=== PATIENT | male | born 1965 | race Caucasian/White ===

== ENCOUNTER 2016-07-12 21:04 | Inpatient (IN) | payer MEDICAID, OTHER ==
[~2016-07-12] VITALS: Ht 170.2 cm; Wt 70.9 kg
[2016-07-12 21:19] VITALS: BP 151/92; PULSE 93; RESP 19; TEMP 98.8; O2SAT 97
--- NOTE | 2016-07-12 22:26 | PD ---
HPI Chief Complaint: Psychiatric Symptoms Time Seen by Provider: 22:20 Travel History International Travel<30 days: No Contact w/Intl Traveler<30days: No Traveled to known affect area: No History of Present Illness HPI 51-year-old male that presents to the ED for evaluation of psych. Patient was Roger acted by police after apparently mother contacted the police because patient was being intoxicated and hallucinating. Patient does have a significant history of alcohol abuse and he tells me that his been drinking since age 9. Per patient he "left my mother dry". He states that his been drinking heavily the past couple days. Per patient she's been hearing voices and he feels like his has not right. Per patient he is not taking any medications for schizophrenia or anything as he doesn't like pills. He has no allergies to medication. He denies any other medical problems to me. No fevers chills or sweats. Patient is somewhat hard to assess secondary to his intoxication and mental status. He does appear to be interacting with some internal stimuli. He denies any suicidal or homicidal ideation to me. He is not aggressive. He does smell alcohol heavily. Again history is limited. Symptoms seem to be moderate at this time. PFSH Past Medical History Schizophrenia: Yes Social History Alcohol Use: Yes Tobacco Use: Yes Substance Use: No Allergies-Medications (Allergen,Severity, Reaction): Coded Allergies: No Known Allergies (Unverified , 07/13/16) Per Lavell at the [facility] - in [place], [place] on [address] [phone]. Reported Meds & Prescriptions Reported Meds & Active Scripts Active Reported Lactulose Liq (Lactulose) 10 Gm/15 Ml Soln 30 Ml PO TID Hydroxyzine Pamoate 50 Mg Cap 50 Mg PO QID PRN Vitamin B-1 (Thiamine HCl) 100 Mg Tab 100 Mg PO DAILY Multi Vitamin and Mineral (Multiple Vitamins W/ Minerals) 1 Tab Tab Seroquel (Quetiapine Fumarate) 300 Mg Tab 300 Mg PO HS Sertraline (Sertraline HCl) 50 Mg Tab 50 Mg PO DAILY Albuterol Neb (Albuterol Sulfate) 2.5 Mg/3 Ml Neb 2.5 Mg NEB Q4HR NEB PRN Review of Systems ROS Limitations: Intoxication General / Constitutional: No: Fever, Chills, Weight Gain, Weight Loss, Other Eyes: No: Diploplia, Blurred Vision, Photophobia, Drainage, Redness, Foreign Body Sensation, Pain, Tearing, Blind Spots, Visual changes, Blindness, Other HENT: No: Headaches, Vertigo, Lightheadedness, Sore Throat, Rhinitis, Rhinorrhea, Congestion, Nosebleed, Neck Stiffness, Neck Pain, Masses, Gingival Bleeding, Dental Difficulties, Ear Discharge, Earache, Other Cardiovascular: No: Chest Pain or Discomfort, Palpitations, Irregular Rhythm, Tachycardia, Diaphoresis, Syncope, Dyspnea on exertion, Varicosities, Edema, Cyanosis, Varicosities, Phlebitis, Claudication, Other Respiratory: No: Cough, Shortness of Breath, Wheezing, Sneezing, Orthopnea, Hemoptysis, Stridor, Night Sweats, Pleuritic Pain, Other Gastrointestinal: No: Nausea, Vomiting, Diarrhea, Abdominal Pain, Hematemesis, Hematochezia, Constipation, Changes in Bowel Habits, Indigestion, Dysphagia, Loss of Appetite, Other Genitourinary: No: Urgency, Frequency, Dysuria, Nocturia, Hematuria, Decreased Urinary Output, Oliguria, Hesitancy, Dribbling, Incontinence, Pelvic Pain, Flank Pain, Dyspareunia, Discharge, Dysmenorrhea, Menorrhagia, Metorrhagia, Vaginal Bleeding, Other Musculoskeletal: No: Myalgias, Arthralgias, Limited ROM, Weakness, Cramping, Edema, Pain, Atrophy, Other Skin: No Rash, No Itching, No Dryness, No Lumps, No Hives, No Change in Pigmentation, No Change in nails, No Alopecia, No Lesions, No Breast Lumps, No Breast Tenderness, No Breast Swelling, No Other Neurologic: No: Weakness, Dizziness, Syncope, Focal Abnormalities, Coordination Problem, Tremor, Ataxia, Headache, Change in Mentation, Slurred Speech, Paresthesia, Incontinence, Seizures, Sensory Disturbance, Other Psychiatric: Positive: Depression, Disorder of Thought, Mood Disorder, Substance Abuse, No: Anxiety, Suicidal Ideations, Homicidal Ideation, Other Endocrine: No: Heat Intolerance, Cold Intolerance, Polyuria, Polydipsia, Other Hematologic/Lymphatic: No: Easy Bruising, Lymph Node Enlargement, Other Physical Exam Exam Limitations: Intoxication Narrative GENERAL: SKIN: Warm and dry. HEAD: Atraumatic. Normocephalic. EYES: Pupils equal and round. No scleral icterus. No injection or drainage. ENT: No nasal bleeding or discharge. Mucous membranes pink and moist. Tongue is midline. No uvula deviation. NECK: Trachea midline. No JVD. CARDIOVASCULAR: Regular rate and rhythm. No murmurs, S3, S4. RESPIRATORY: No accessory muscle use. Clear to auscultation. Breath sounds equal bilaterally. GASTROINTESTINAL: Abdomen soft, non-tender, nondistended. Hepatic and splenic margins not palpable. MUSCULOSKELETAL: Extremities without clubbing, cyanosis, or edema. No obvious deformities. Full range of motion of the upper and lower extremities bilaterally. 2+ pulses bilaterally. NEUROLOGICAL: Awake and alert. No obvious cranial nerve deficits. Motor grossly within normal limits. Five out of 5 muscle strength in the arms and legs. Normal speech. PSYCHIATRIC: Intoxicated and somewhat psychotic mood and affect; insight and judgment questionable at this time Data Data Last Documented VS Vital Signs Date Time Temp Pulse Resp B/P Pulse Ox O2 Delivery O2 Flow Rate FiO2 07/13/16 13:49 97.8 17 99 Room Air 07/13/16 13:48 92 07/13/16 13:48 167/81 Orders Complete Blood Count With Diff (07/12/16 21:25) Comprehensive Metabolic Panel (07/12/16 21:25) Psych Screen (07/12/16 21:25) Drug Screen, Random Urine (07/12/16 21:25) Alcohol (Ethanol) (07/12/16 21:25) Lorazepam (Ativan) (07/13/16 05:00) Diet Regular Basic (07/13/16 Breakfast) Diet Regular Basic (07/13/16 Lunch) Lorazepam Inj (Ativan Inj) (07/13/16 08:00) Alcohol Withdrawal Asmt-Ciwa ONCE (07/13/16 13:12) Ondansetron Inj (Zofran Inj) (07/13/16 13:15) Flumazenil Inj (Romazicon Inj) (07/13/16 13:15) Lorazepam (Ativan) (07/13/16 13:15) Lorazepam Inj (Ativan Inj) (07/13/16 13:15) Lorazepam (Ativan) (07/13/16 13:15) Lorazepam Inj (Ativan Inj) (07/13/16 13:15) Lorazepam Inj (Ativan Inj) (07/13/16 13:15) Lorazepam Inj (Ativan Inj) (07/13/16 13:15) Ondansetron Inj (Zofran Inj) (07/13/16 13:15) Lorazepam Inj (Ativan Inj) (07/13/16 13:15) Iv Access Insert/Monitor (07/13/16 13:22) Thiamine Inj (Thiamine Inj) (07/13/16 13:30) Sodium Chlor 0.9% 1000 Ml Inj (Ns 1000 M (07/13/16 13:33) Ecg Monitoring (07/13/16 13:33) Oximetry (07/13/16 13:33) Admit Order (Ed Use Only) (07/13/16 14:35) Labs Laboratory Tests Test 07/12/16 07/13/16 23:30 04:25 White Blood Count 13.3 TH/MM3 Red Blood Count 5.22 MIL/MM3 Hemoglobin 15.0 GM/DL Hematocrit 44.8 % Mean Corpuscular Volume 85.9 FL Mean Corpuscular Hemoglobin 28.6 PG Mean Corpuscular Hemoglobin 33.4 % Concent Red Cell Distribution Width 20.1 % Platelet Count 229 TH/MM3 Mean Platelet Volume 8.8 FL Neutrophils (%) (Auto) 61.5 % Lymphocytes (%) (Auto) 24.9 % Monocytes (%) (Auto) 9.9 % Eosinophils (%) (Auto) 2.6 % Basophils (%) (Auto) 1.1 % Neutrophils # (Auto) 8.2 TH/MM3 Lymphocytes # (Auto) 3.3 TH/MM3 Monocytes # (Auto) 1.3 TH/MM3 Eosinophils # (Auto) 0.3 TH/MM3 Basophils # (Auto) 0.1 TH/MM3 CBC Comment DIFF FINAL Differential Comment Sodium Level 143 MEQ/L Potassium Level 3.4 MEQ/L Chloride Level 106 MEQ/L Carbon Dioxide Level 27.0 MEQ/L Anion Gap 10 MEQ/L Blood Urea Nitrogen 4 MG/DL Creatinine 0.68 MG/DL Estimat Glomerular Filtration 122 ML/MIN Rate Random Glucose 87 MG/DL Calcium Level 8.6 MG/DL Total Bilirubin 1.1 MG/DL Aspartate Amino Transf 62 U/L (AST/SGOT) Alanine Aminotransferase 48 U/L (ALT/SGPT) Alkaline Phosphatase 159 U/L Total Protein 8.6 GM/DL Albumin 3.8 GM/DL Ethyl Alcohol Level 173 MG/DL Urine Opiates Screen NEG Urine Barbiturates Screen NEG Urine Amphetamines Screen NEG Urine Benzodiazepines Screen NEG Urine Cocaine Screen NEG Urine Cannabinoids Screen NEG MDM Medical Decision Making Medical Screen Exam Complete: Yes Emergency Medical Condition: Yes Medical Record Reviewed: Yes Interpretation(s) CBC & BMP Diagram 07/12/16 23:30 tox positive for alcohol Differential Diagnosis Depression versus suicidal ideation versus anxiety versus adjustment disorder versus mood disorder versus bipolar disorder versus schizophrenia versus paranoid disorder versus psychosis versus substance abuse versus alcohol abuse versus alcohol induced psychosis versus homicidality addition versus cutting versus personality disorder Narrative Course 51-year-old male that presents to the ED for evaluation of psych. Patient was properly examined and was found to have signs and symptoms consistent what appears to be psychiatric illness. No sign of acute medical distress at this time. Patient does appear to be somewhat intoxicated has a history of chronic alcohol abuse. He does not appear to be in withdrawals at this time. I believe the patient's schizophrenia slightly worsening because of his alcohol abuse. At this time patient will have labs. Patient will be medically clear pending labs. Okay to be seen by psych. Mental health screening was discussed with the patient. On July 13, 2016 at around 1:00 I was asked by ED psych nurse to evaluate the patient as apparently his been throwing up and they're concerned that he is in active withdrawal. Patient was only given 1 Ativan yesterday. He is a heavy drinker. Evaluated the patient and he does appear to be in very active withdrawal. Patient does appear to be shaking, diaphoretic and appears to be delirius which comes and goes secondary to withrawal. He is slightly tachycardic. I do not think patient will do well in psychiatry therefore medical evaluation recommended. Because of this patient was moved to a medical bed. I started CIWA protocol on him as well as given Thiamine and zofran as well as given fluids. Patient will be admitted to help us for active withdrawal and encephalopathy. His BA has not been lifted. Dr Junior agrees to admission. Diagnosis Primary Impression: Alcohol withdrawal delirium Additional Impressions: Alcohol abuse Schizophrenia Qualified Code: F20.9 - Schizophrenia, unspecified type Admitting Information Admitting Physician Requests: Observation Raymond Elise Jul 12, 2016 22:25
[2016-07-13] VITALS (11 sets, daily range): BP systolic 132–177; BP diastolic 77–89; PULSE 86–104; RESP 17–24; TEMP 97.8–98.7; O2SAT 94–100
[2016-07-13 00:27] LABS: AUTOMATED NEUTROPHIL # 8.2 TH/MM3 (1.8-7.7); BASOPHIL # 0.1 TH/MM3 (0-0.2); BASOPHIL % 1.1 % (0.0-2.0); EOSINOPHIL # 0.3 TH/MM3 (0-0.4); EOSINOPHIL % 2.6 % (0.0-4.0); HEMATOCRIT 44.8 % (39.0-51.0); HEMO FLAGS DIFF FINAL; LYMPH % 24.9 % (9.0-44.0); LYMPHOCYTE # 3.3 TH/MM3 (1.0-4.8); MEAN CELL VOLUME 85.9 FL (80.0-100.0); MEAN CORPUSCULAR HEMOGLOBIN 28.6 PG (27.0-34.0); MEAN CORPUSCULAR HGB CONC 33.4 % (32.0-36.0); MONO % 9.9 % (0.0-8.0); NEUT % 61.5 % (16.0-70.0); PLATELET COUNT 229 TH/MM3 (150-450); RED BLOOD COUNT 5.22 MIL/MM3 (4.50-5.90); RED CELL DISTRIBUTION WIDTH 20.1 % (11.6-17.2); WHITE BLOOD COUNT 13.3 TH/MM3 (4.0-11.0)
[2016-07-13 00:49] LABS: ALT (GPT) 48 U/L (12-78); ANION GAP 10 MEQ/L (5-15); AST (GOT) 62 U/L (15-37); BLOOD UREA NITROGEN 4 MG/DL (7-18); CHLORIDE 106 MEQ/L (98-107); GLOMERULAR FILTRATION RATE 122 ML/MIN (>89); POTASSIUM 3.4 MEQ/L (3.5-5.1); SODIUM (NA) 143 MEQ/L (136-145)
[2016-07-13 00:52] LABS: ALKALINE PHOSPHATASE 159 U/L (45-117); TOTAL BILIRUBIN ADULT 1.1 MG/DL (0.2-1.0)
[2016-07-13] MEDS ORDERED: LORazepam 0.5 MG TAB PO ONE (05:00)
[2016-07-13 05:07] LABS: AMPHETAMINE, URINE NEG (NEG); BARBITURATES, URINE NEG (NEG); COCAINE, URINE NEG (NEG)
[2016-07-13] MEDS ORDERED: LORazepam 2 MG/ML VIAL IM ONE ×2 (08:00→13:15)
[2016-07-13] MEDS ORDERED: ALBU0.08 NEB (09:55)
[2016-07-13] MEDS ORDERED: SERT-132 PO (09:56)
[2016-07-13] MEDS ORDERED: SERO300T PO (09:56)
[2016-07-13] MEDS ORDERED: MULT-142 (09:57)
[2016-07-13] MEDS ORDERED: VITA100T54 PO (09:58)
[2016-07-13] MEDS ORDERED: HYDR50CA PO (09:59)
[2016-07-13] MEDS ORDERED: LACT10SO PO (09:59)
[2016-07-13] MEDS ORDERED: ONDANSETRON HCL 4 MG/2 ML VIAL IM PRN (13:15)
[2016-07-13] MEDS ORDERED: FLUMAZENIL 0.5 MG/5 ML VIAL IV PUSH PRN (13:15)
[2016-07-13] MEDS ORDERED: ONDANSETRON HCL 4 MG/2 ML VIAL IM ONE (13:15)
[2016-07-13] MEDS ORDERED: THIAMINE INJ 100 MG in SODIUM CHLORIDE 0.9% INJ 100 ML IV ONE (13:30)
[2016-07-13] MEDS ORDERED: SODIUM CHLOR 0.9% 1000 ML INJ 1,000 ML IV SCH (13:33)
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
[2016-07-13] MEDS ORDERED: POTASSIUM PHOSPHATE MONOBASIC 500 MG TAB PO PRN (15:00)
[2016-07-13] MEDS ORDERED: RESP: ALBUTEROL 0.63 MG/3 ML NEB (PRN) NEB (15:00)
[2016-07-13] MEDS ORDERED: ONDANSETRON HCL 4 MG/2 ML VIAL IVP PRN (15:00)
[2016-07-13] MEDS ORDERED: CHLORHEXIDINE GLUCONATE 2 % 1 PACK (2 CLOTHS) TOP PRN (15:00)
[2016-07-13] MEDS ORDERED: ALUMINUM/MAGNESIUM/SIMETH 30 ML CUP PO PRN (15:00)
[2016-07-13] MEDS ORDERED: CALCIUM CARBONATE 500 MG CHEWABLE TAB CHEW PRN (15:00)
[2016-07-13] MEDS ORDERED: MAGNESIUM OXIDE 400 MG TAB PO PRN (15:00)
[2016-07-13] MEDS ORDERED: LORazepam 2 MG/ML VIAL IV PUSH PRN (15:00)
[2016-07-13] MEDS ORDERED: cloNIDine HCL 0.1 MG TAB PO PRN (15:00)
[2016-07-13] MEDS ORDERED: MAGNESIUM SULFATE INJ 4 GM in SODIUM CHLORIDE 0.9% INJ 92 ML IV PRN (15:00)
[2016-07-13] MEDS ORDERED: BISACODYL 10 MG SUPP PR PRN (15:00)
[2016-07-13] MEDS ORDERED: POTASSIUM PHOSPHATE INJ 30 MMOL in SODIUM CHLOR 0.9% 250 ML INJ 250 ML IV PRN (15:00)
[2016-07-13] MEDS ORDERED: ENALAPRILAT 1.25 MG/ML VIAL IV PRN (15:00)
[2016-07-13] MEDS ORDERED: MAGNESIUM HYDROXIDE SUSP 30 ML CUP PO PRN (15:00)
[2016-07-13] MEDS ORDERED: POTASSIUM PHOSPHATE MONOBASIC 500 MG TAB PO/TUBE PRN (15:00)
[2016-07-13] MEDS ORDERED: POTASSIUM CHLOR 40 MEQ PREMIX 100 ML IV PRN ×2 (15:00)
[2016-07-13] MEDS ORDERED: SODIUM PHOSPHATE INJ 30 MMOL in SODIUM CHLOR 0.9% 250 ML INJ 240 ML IV PRN (15:00)
[2016-07-13] MEDS ORDERED: MAGNESIUM SULFATE INJ 2 GM in SODIUM CHLORIDE 0.9% INJ 96 ML IV PRN (15:00)
[2016-07-13] MEDS ORDERED: MISCELLANEOUS NURSING INFORMATION XX SCH (15:00)
[2016-07-13] MEDS ORDERED: SENNOSIDES 8.6 MG TAB PO PRN (15:00)
[2016-07-13] MEDS ORDERED: NALOXONE HCL 0.4 MG/ML AMP IV PRN (15:00)
[2016-07-13] MEDS ORDERED: POTASSIUM CHLOR 20 MEQ PREMIX 100 ML IV PRN ×2 (15:00)
[2016-07-13] MEDS ORDERED: POTASSIUM CHLORIDE 10 MEQ CONTROLLED RELEASE TAB PO ONE (15:00)
[2016-07-13] MEDS: PANTOPRAZOLE SODIUM 40 MG VIAL IV SCH (15:11)
[2016-07-13] MEDS: DOCUSATE SODIUM 100 MG CAP PO SCH (15:11)
[2016-07-13] MEDS: NS + KCL 20 MEQ INJ 1,000 ML IV SCH (15:11)
[2016-07-13] MEDS: HEPARIN SODIUM - SQ 10,000 UNITS/ML VIAL SQ SCH (15:12)
[2016-07-13] MEDS: LORazepam 2 MG/ML VIAL IV PUSH PRN ×4 (16:34→23:10)
[2016-07-13 16:35] LABS: MAGNESIUM 1.6 MG/DL (1.5-2.5)
[2016-07-13] MEDS: SODIUM CHLORIDE 0.9% FLUSH 5 ML FLUSH FLUSH SCH (20:36)
[2016-07-14] VITALS (13 sets, daily range): BP systolic 136–151; BP diastolic 61–87; PULSE 61–104; RESP 20–25; TEMP 97.6–98.6; O2SAT 95–99
[2016-07-14] MEDS: LORazepam 2 MG/ML VIAL IV PUSH PRN ×15 (01:37→23:47)
[2016-07-14] MEDS: DOCUSATE SODIUM 100 MG CAP PO SCH ×2 (03:00→13:42)
[2016-07-14] MEDS: HEPARIN SODIUM - SQ 10,000 UNITS/ML VIAL SQ SCH ×2 (03:17→16:02)
[2016-07-14] MEDS: CHLORHEXIDINE GLUCONATE 2 % 1 PACK (2 CLOTHS) TOP SCH (03:17)
[2016-07-14] MEDS: NS + KCL 20 MEQ INJ 1,000 ML IV SCH ×2 (03:17→16:11)
[2016-07-14 03:30] LABS: AUTOMATED NEUTROPHIL # 5.8 TH/MM3 (1.8-7.7); BASOPHIL # 0.1 TH/MM3 (0-0.2); EOSINOPHIL # 0.3 TH/MM3 (0-0.4); EOSINOPHIL % 3.5 % (0.0-4.0); HEMATOCRIT 41.2 % (39.0-51.0); HEMO FLAGS DIFF FINAL; LYMPH % 24.1 % (9.0-44.0); LYMPHOCYTE # 2.4 TH/MM3 (1.0-4.8); MEAN CELL VOLUME 86.4 FL (80.0-100.0); MEAN CORPUSCULAR HGB CONC 33.5 % (32.0-36.0); MONO % 12.9 % (0.0-8.0); NEUT % 58.5 % (16.0-70.0); PLATELET COUNT 155 TH/MM3 (150-450); RED BLOOD COUNT 4.77 MIL/MM3 (4.50-5.90); RED CELL DISTRIBUTION WIDTH 19.6 % (11.6-17.2)
[2016-07-14 03:43] LABS: BICARBONATE 25.4 MEQ/L (21.0-32.0); POTASSIUM 3.5 MEQ/L (3.5-5.1)
[2016-07-14] MEDS: SODIUM CHLORIDE 0.9% FLUSH 5 ML FLUSH FLUSH PRN ×2 (05:01→23:26)
[2016-07-14] MEDS: MULTIVITAMINS/MINERALS THERAPEUTIC TAB PO SCH (07:34)
[2016-07-14] MEDS: FOLIC ACID 1 MG TAB PO SCH (07:34)
[2016-07-14] MEDS: THIAMINE HCL 100 MG TAB PO SCH (07:35)
[2016-07-14] MEDS: PANTOPRAZOLE SODIUM 40 MG VIAL IV SCH (07:35)
[2016-07-14] MEDS: SODIUM CHLORIDE 0.9% FLUSH 5 ML FLUSH FLUSH SCH ×2 (07:36→22:18)
[2016-07-14] MEDS: HALOPERIDOL LACTATE 5 MG/ML AMP IV PRN ×2 (09:55→21:14)
[2016-07-14] MEDS ORDERED: INFLUENZA VIRUS VACCINE (QUADRIVALENT) 0.5 ML SYR IM ONE (10:00)
--- NOTE | 2016-07-14 12:36 | HHI.PR ---
Subjective Remarks Follow up for alcohol withdrawal, hallucinations. The patient reports feeling worse again overnight. He reports continued auditory hallucinations, keeps hearing that people want to hurt him, such as tying him up and beating him up. He also feels slightly dizzy, seeing spots. He did eat some of his breakfast this morning. Mildly tremulous. Objective Vitals Vital Signs Date Time Temp Pulse Resp B/P Pulse Ox O2 Delivery O2 Flow Rate FiO2 07/14/16 10:00 94 07/14/16 08:00 98.6 61 20 145/87 97 07/14/16 08:00 80 07/14/16 06:00 82 07/14/16 04:00 97.6 89 24 149/86 95 07/14/16 04:00 89 07/14/16 02:00 90 07/14/16 00:00 98.2 87 23 149/73 96 07/14/16 00:00 87 07/13/16 22:00 101 07/13/16 20:00 98.7 98 24 157/77 95 07/13/16 20:00 98 07/13/16 16:30 98.3 92 18 162/79 94 07/13/16 16:30 92 07/13/16 15:55 98.6 87 17 151/87 98 07/13/16 13:49 97.8 17 99 Room Air 07/13/16 13:48 92 17 07/13/16 13:48 97.8 92 17 167/81 98 Room Air I/O 07/13/16 07/13/16 07/13/16 07/14/16 07/14/16 07/14/16 07:00 15:00 23:00 07:00 15:00 23:00 Intake Total 742 ml 980 ml Output Total 700 ml 700 ml Balance 42 ml 280 ml Intake Oral 240 ml 350 ml IV Total 502 ml 630 ml Output Urine Total 700 ml 700 ml Result Diagram: 07/14/16 0306 07/14/16 030 Objective Remarks GENERAL: Well-nourished, well-developed middle aged male patient in mild distress, tremulous. SKIN: Warm and dry. No rash. HEENT: Normocephalic. Atraumatic. Pupils equal and round. No scleral icterus. No injection or drainage. Mucous membranes pink and moist. NECK: Supple. Trachea midline. CARDIOVASCULAR: Regular rate and rhythm. S1, S2 noted. No murmur appreciated. RESPIRATORY: No accessory muscle use. Clear to auscultation. Breath sounds equal bilaterally. GASTROINTESTINAL: Abdomen soft, non-tender, nondistended. Normoactive bowel sounds x4. Palpable liver 4cm below costophrenic angle. MUSCULOSKELETAL: No obvious deformities. Extremities without clubbing, cyanosis , or edema. NEUROLOGICAL: Awake and alert. No obvious cranial nerve deficits. Motor grossly within normal limits. Normal speech. PSYCHIATRIC: Appropriate mood and affect; insight and judgment normal. +auditory /visual hallucinations. Medications and IVs Current Medications Medications (Trade) Dose Ordered Sig/Sanjuana Route Start Time Stop Time Status Last Admin (Romazicon Inj) 0.2 mg Q1M PRN IV PUSH 07/13/16 13:15 (Ativan) 1 mg Q4H PRN PO 07/13/16 13:15 (Ativan Inj) 1 mg Q4H PRN IV PUSH 07/13/16 13:15 (Ativan) 2 mg Q2H PRN PO 07/13/16 13:15 (Ativan Inj) 2 mg Q2H PRN IV PUSH 07/13/16 13:15 (Ativan Inj) 2 mg Q1H PRN IV PUSH 07/13/16 13:15 07/14/16 12:00 (Ativan Inj) 2 mg Q15M PRN IV PUSH 07/13/16 13:15 (Mag-Al Plus Susp Liq) 30 ml Q6H PRN PO 07/13/16 15:00 (Tums Chew) 500 mg Q6H PRN CHEW 07/13/16 15:00 Pantoprazole Sodium 40 mg 40 mg DAILY IV 07/13/16 15:00 07/14/16 07:35 (NS + KCl 20 Meq Inj) 1,000 ml @ 84 mls/hr [id number] IV 07/13/16 16:00 07/14/16 03:17 (Folate) 1 mg DAILY PO 07/14/16 09:00 07/19/16 08:59 07/14/16 07:34 (Vitamin B1) 100 mg DAILY PO 07/14/16 09:00 07/14/16 07:35 (Theragran M Tab) 1 tab DAILY PO 07/14/16 09:00 07/19/16 08:59 07/14/16 07:34 (Ativan Inj) 1 mg Q6H PRN IV PUSH 07/13/16 15:00 (Vasotec Inj) 1.25 mg Q6H PRN IV 07/13/16 15:00 (Catapres) 0.1 mg Q6H PRN PO 07/13/16 15:00 Miscellaneous Information 1 Q361D XX 07/13/16 15:00 (Chlorhexidine 2% Cloth) 3 pack Taper DAILY@04 TOP 07/14/16 04:00 07/10/17 03:59 07/14/16 03:17 (Chlorhexidine 2% Cloth) 3 pack UNSCH PRN TOP 07/13/16 15:00 (NS Flush) 2 ml UNSCH PRN FLUSH 07/13/16 15:00 07/14/16 05:01 (NS Flush) 2 ml BID FLUSH 07/13/16 21:00 07/14/16 07:36 (Tylenol) 650 mg Q4H PRN PO 07/13/16 15:00 (Zofran Inj) 4 mg Q6H PRN IVP 07/13/16 15:00 (Dulcolax Supp) 10 mg DAILY PRN [place] 07/13/16 15:00 (Colace) 100 mg Q12H PO 07/13/16 15:00 07/13/16 15:11 (Milk Of Magnesia Liq) 30 ml Q12H PRN PO 07/13/16 15:00 (Senokot) 17.2 mg Q12H PRN PO 07/13/16 15:00 (Heparin Inj) 5,000 units Q12H SQ 07/13/16 16:00 07/14/16 03:17 Naloxone HCl 0.4 mg 0.4 mg UNSCH PRN IV 07/13/16 15:00 Potassium Chloride 100 ml @ 50 mls/hr Q2H PRN IV 07/13/16 15:00 Potassium Chloride 100 ml @ 50 mls/hr Q2H PRN IV 07/13/16 15:00 Potassium Chloride 100 ml @ 25 mls/hr UNSCH PRN IV 07/13/16 15:00 Potassium Chloride 100 ml @ 50 mls/hr Q2H PRN IV 07/13/16 15:00 (Magnesium Sulfate Inj/NS Inj) 100 ml @ 50 mls/hr UNSCH PRN IV 07/13/16 15:00 Magnesium Oxide 800 mg 800 mg UNSCH PRN PO 07/13/16 15:00 (Magnesium Sulfate Inj/NS Inj) 100 ml @ 50 mls/hr UNSCH PRN IV 07/13/16 15:00 Potassium Phosphate 2000 mg 2,000 mg Q4H PRN PO 07/13/16 15:00 (Sodium Phosphate Inj/NS 250 ml Inj) 250 ml @ 42 mls/hr UNSCH PRN IV 07/13/16 15:00 Potassium Phosphate 2000 mg 2,000 mg UNSCH PRN PO/TUBE 07/13/16 15:00 (Potassium Phosphate Inj/NS 250 ml Inj) 260 ml @ 42 mls/hr UNSCH PRN IV 07/13/16 15:00 (Haldol Inj) 2 mg Q8H PRN IV 07/14/16 08:30 07/14/16 09:55 Urinary Catheter: No Vascular Central Line Catheter: No A/P Assessment and Plan 51-year-old male with history of schizophrenia not on medications, alcohol abuse , COPD, hepatitis C, liver cirrhosis, presents under Roger Act for auditory and visual hallucinations; initially admitted to [facility], however now in alcohol withdrawal with vomiting/tremors, and therefore admitted to medicine team. Alcohol Withdrawal, impending Delirium Tremens: +hallucinations, vomiting, tremors. Etoh level 172 upon arrival, last drink 07/12. Counseled on alcohol cessation. Continue thiamine/folate/MV. CIWA protocol with Ativan prn. Seizure precautions, Monitor on telemetry, Neuro checks. Supportive treatment with IVF, antiemetics. Admitted to ICU, monitor closely. IV Haldol prn. Auditory/Visual Hallucinations: under Roger Act. Likely multifactorial with hx of schizophrenia and acute alcohol withdrawal. UDS negative. Consult psychiatry , discussed with Dr. Aguilar, appreciate recommendations. Nausea/Vomiting/Epigastric Pain: likely related to alcohol withdrawal. Lipase wnl. Given IV Protonix, change to po. Antiemetics prn. Diet as tolerated. Hypokalemia: replace with IV KCl. Check mag and phos. Repeat BMP today with K 3.5, give additional KCL 30meq po x1. Monitor electrolytes. Elevated LFTs: likely secondary to hep C, cirrhosis, and alcohol abuse. Avoid hepatotoxins. Monitor LFTs. Cirrhosis/Hepatitis C: chronic, needs outpatient f/up with gastroenterology. Monitor for confusion, start lactulose if necessary. SIRS Criteria: with +tachycardia and leukocytosis WBC 13.3K. Likely reactive to above. Give IVF. Repeat CBC today with WBC 10K, improved. Monitor for fevers. Hypertension: no reported hx of htn. BP 177/85 in ER. Likely secondary to withdrawal. Clonidine prn. COPD: chronic, does not appear to be in exacerbation. Nebs prn. DVT Prophylaxis: Heparin Written by Lizbeth Bran, acting as scribe for Dr. Santana on 07/14/16 at 12: 33. All or portions of this note were transcribed by scribe []. I, Dr. Kevin Santana personally performed the history, physical exam, and medical decision making; and confirmed the accuracy of the information in the transcribed note. Authenticated by Dr. Kevin Santana on 07/14/16 at 16:45. Lizbeth Bran PA-C Jul 14, 2016 12:36 Kevin Santana MD Jul 14, 2016 16:45
[2016-07-14] MEDS ORDERED: POTASSIUM CHLORIDE 10 MEQ CONTROLLED RELEASE TAB PO ONE (12:45)
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
[2016-07-14] MEDS ORDERED: RESP: ALBUTEROL 2.5 MG/IPRATROPIUM 0.5 MG NEB (PRN) NEB (19:15)
[2016-07-14] MEDS: RESP: ALBUTEROL 2.5 MG/IPRATROPIUM 0.5 MG NEB (SCH) NEB ×2 (19:35→22:00)
[2016-07-14] MEDS: QUEtiapine FUMARATE 100 MG TAB PO SCH (21:14)
[2016-07-15] VITALS (14 sets, daily range): BP systolic 120–156; BP diastolic 66–82; PULSE 103–118; RESP 15–36; TEMP 98–100.5; O2SAT 91–99
[2016-07-15] MEDS: LORazepam 2 MG/ML VIAL IV PUSH PRN ×18 (00:17→23:51)
[2016-07-15] MEDS: DOCUSATE SODIUM 100 MG CAP PO SCH ×2 (03:00→15:00)
[2016-07-15] MEDS: HEPARIN SODIUM - SQ 10,000 UNITS/ML VIAL SQ SCH ×2 (03:54→15:33)
[2016-07-15] MEDS: SODIUM CHLORIDE 0.9% FLUSH 5 ML FLUSH FLUSH PRN (03:55)
[2016-07-15] MEDS: CHLORHEXIDINE GLUCONATE 2 % 1 PACK (2 CLOTHS) TOP SCH (03:55)
[2016-07-15] MEDS: RESP: ALBUTEROL 2.5 MG/IPRATROPIUM 0.5 MG NEB (SCH) NEB ×4 (04:00→20:59)
[2016-07-15] MEDS: NS + KCL 20 MEQ INJ 1,000 ML IV SCH ×2 (04:01→15:33)
[2016-07-15] MEDS: PANTOPRAZOLE SODIUM 40 MG VIAL IV SCH (07:28)
[2016-07-15] MEDS: MULTIVITAMINS/MINERALS THERAPEUTIC TAB PO SCH (07:28)
[2016-07-15] MEDS: FOLIC ACID 1 MG TAB PO SCH (07:28)
[2016-07-15] MEDS: THIAMINE HCL 100 MG TAB PO SCH (07:28)
[2016-07-15] MEDS: HALOPERIDOL LACTATE 5 MG/ML AMP IV PRN ×2 (07:39→15:33)
[2016-07-15 08:24] LABS: BICARBONATE 25.8 MEQ/L (21.0-32.0); MAGNESIUM 1.9 MG/DL (1.5-2.5); POTASSIUM 3.7 MEQ/L (3.5-5.1)
[2016-07-15] MEDS: SODIUM CHLORIDE 0.9% FLUSH 5 ML FLUSH FLUSH SCH ×2 (09:00→19:58)
--- NOTE | 2016-07-15 15:29 | HHI.PR ---
Subjective Remarks drinks a 1/2 - 1 gallon of alcohol confused, hallucinating ate 100% voiding spontaneously- continent Objective Vitals Vital Signs Date Time Temp Pulse Resp B/P Pulse Ox O2 Delivery O2 Flow Rate FiO2 07/15/16 14:00 107 07/15/16 13:18 98 07/15/16 12:00 98.0 107 22 123/72 99 07/15/16 12:00 110 07/15/16 10:00 103 07/15/16 08:00 98.1 112 22 120/66 98 07/15/16 08:00 106 07/15/16 06:00 114 07/15/16 04:00 118 07/15/16 04:00 98.8 118 26 141/70 95 07/15/16 02:00 111 07/15/16 00:00 118 07/15/16 00:00 100.5 118 15 128/74 94 07/14/16 22:00 104 07/14/16 20:00 104 07/14/16 20:00 98.1 104 25 151/73 99 07/14/16 19:36 97 21 07/14/16 18:00 103 07/14/16 16:00 97.8 95 20 136/61 97 07/14/16 16:00 91 I/O 07/14/16 07/14/16 07/14/16 07/15/16 07/15/16 07/15/16 07:00 15:00 23:00 07:00 15:00 23:00 Intake Total 980 ml 1599 ml 1338 ml 1128 ml Output Total 700 ml 3200 ml 1300 ml 1150 ml Balance 280 ml -1601 ml 38 ml -22 ml Intake Oral 350 ml 960 ml 650 ml 500 ml IV Total 630 ml 639 ml 688 ml 628 ml Output Urine Total 700 ml 3200 ml 1300 ml 1150 ml # Bowel Movements 1 Result Diagram: 07/14/16 0306 07/15/16 0716 Objective Remarks just got IV Ativan, calm when spoken to- knows the year , 2016, [place] but is hearing voices, moves all extremities anicteric lungs clear regular rhythm, tachycardic abdomen soft, nontender extremities no edema A/P Assessment and Plan 51-year-old male with history of schizophrenia not on medications, alcohol abuse , COPD, hepatitis C, liver cirrhosis, presents under [employer] Act for auditory and visual hallucinations; initially admitted to [facility], however now in alcohol withdrawal with vomiting/tremors, and therefore admitted to medicine team. DTS +hallucinations tremors. no vomiting Etoh level 172 upon arrival, last drink 07/12. Counseled on alcohol cessation. Continue thiamine/folate/MV. CIWA protocol with Ativan prn and haldol . - he is getting on average almost Seizure precautions, Monitor on telemetry, Neuro checks. Supportive treatment with IVF, antiemetics. Admitted to ICU, monitor closely. IV Haldol prn. DDX- is hepatic encephalopathy with history of cirrhosis check ammonia level- althought this is not diagnostic start Lactulose bid start standing Librium dose patient states he is on Klonopin as OP History of schizophrenia Auditory/Visual Hallucinations:- under [employer] Act. Likely multifactorial with hx of schizophrenia and acute alcohol withdrawal. UDS negative. psychiatry, Dr. Aguilar- ff Nausea/Vomiting/Epigastric Pain: likely related to alcohol withdrawal.- resolved. Protonix, change to po. Antiemetics prn. Diet as tolerated. Hypokalemia: replace with IV KCl. Monitor electrolytes. Elevated LFTs: likely secondary to hep C, cirrhosis, and alcohol abuse. Avoid hepatotoxins. Monitor LFTs. Cirrhosis/Hepatitis C: chronic, needs outpatient f/up with gastroenterology. Monitor for confusion, start lactulose if necessary. SIRS Criteria: with +tachycardia and leukocytosis WBC 13.3K. Likely reactive to above. Give IVF. Repeat CBC today with WBC 10K, improved. Monitor for fevers. Hypertension: no reported hx of htn. BP 177/85 in ER. Likely secondary to withdrawal. Clonidine prn. COPD: chronic, does not appear to be in exacerbation. Nebs prn. DVT Prophylaxis: Heparin restraints Andrea Willard MD Jul 15, 2016 15:29
[2016-07-15] MEDS: LACTULOSE SYRUP 20 GM/30 ML CUP PO SCH ×2 (16:15→17:25)
[2016-07-15] MEDS: chlordiazePOXIDE 25 MG CAP PO SCH ×3 (16:44→22:57)
[2016-07-15] MEDS: QUEtiapine FUMARATE 100 MG TAB PO SCH (19:58)
[2016-07-16] VITALS (15 sets, daily range): BP systolic 125–145; BP diastolic 69–83; PULSE 93–126; RESP 20–36; TEMP 97.6–99; O2SAT 91–100
[2016-07-16] MEDS: DOCUSATE SODIUM 100 MG CAP PO SCH ×2 (01:53→14:17)
[2016-07-16] MEDS: LORazepam 2 MG/ML VIAL IV PUSH PRN ×6 (01:53→17:37)
[2016-07-16] MEDS: RESP: ALBUTEROL 2.5 MG/IPRATROPIUM 0.5 MG NEB (SCH) NEB ×4 (02:54→20:22)
[2016-07-16] MEDS: chlordiazePOXIDE 25 MG CAP PO SCH ×5 (03:13→20:04)
[2016-07-16] MEDS: HEPARIN SODIUM - SQ 10,000 UNITS/ML VIAL SQ SCH ×2 (03:13→19:13)
[2016-07-16] MEDS: CHLORHEXIDINE GLUCONATE 2 % 1 PACK (2 CLOTHS) TOP SCH (03:14)
[2016-07-16] MEDS: NS + KCL 20 MEQ INJ 1,000 ML IV SCH ×2 (03:14→19:14)
[2016-07-16] MEDS: FOLIC ACID 1 MG TAB PO SCH (08:52)
[2016-07-16] MEDS: THIAMINE HCL 100 MG TAB PO SCH (08:52)
[2016-07-16] MEDS: PANTOPRAZOLE SODIUM 40 MG VIAL IV SCH (08:52)
[2016-07-16] MEDS: MULTIVITAMINS/MINERALS THERAPEUTIC TAB PO SCH (08:52)
[2016-07-16] MEDS: SODIUM CHLORIDE 0.9% FLUSH 5 ML FLUSH FLUSH SCH ×2 (08:52→20:05)
[2016-07-16] MEDS: LACTULOSE SYRUP 20 GM/30 ML CUP PO SCH ×3 (09:00→18:00)
--- NOTE | 2016-07-16 10:59 | HHI.PR ---
Subjective Remarks awake and alert oriented x 3 he knows why he is here "detox", "still feels shaky" states some abdominal pain ate well for breakfast per staff- no nausea or vomiting Objective Vitals Vital Signs Date Time Temp Pulse Resp B/P Pulse Ox O2 Delivery O2 Flow Rate FiO2 07/16/16 10:20 98 Nasal Cannula 2.00 07/16/16 08:00 106 07/16/16 08:00 97.6 96 24 132/83 96 07/16/16 06:00 115 07/16/16 04:00 98.2 98 36 125/76 92 07/16/16 04:00 98 07/16/16 02:00 105 07/16/16 00:00 106 07/16/16 00:00 99.0 106 29 131/74 92 07/15/16 22:00 114 07/15/16 21:00 99 21 07/15/16 20:00 112 07/15/16 20:00 98.2 112 31 156/74 91 07/15/16 18:00 114 07/15/16 16:00 98.3 112 20 147/82 92 07/15/16 16:00 112 07/15/16 14:00 107 07/15/16 13:18 98 07/15/16 12:00 98.0 107 22 123/72 99 07/15/16 12:00 110 I/O 07/15/16 07/15/16 07/15/16 07/16/16 07/16/16 07/16/16 07:00 15:00 23:00 07:00 15:00 23:00 Intake Total 1128 ml 1267 ml 714 ml 900 ml Output Total 1150 ml 601 ml 700 ml Balance -22 ml 666 ml 714 ml 200 ml Intake Oral 500 ml 600 ml 240 ml 240 ml IV Total 628 ml 667 ml 474 ml 660 ml Output Urine Total 1150 ml 600 ml 700 ml Stool Total 1 ml # Voids 1 # Bowel Movements 0 0 Result Diagram: 07/14/16 0306 07/15/16 0716 Objective Remarks awake and alert x 4 tremulous anicteric lungs clear regular rhythm, tachycardic abdomen soft, + mild epigastric tenderness extremities no edema A/P Assessment and Plan 51-year-old male with history of schizophrenia not on medications, alcohol abuse , COPD, hepatitis C, liver cirrhosis, presents under [employer] Act for auditory and visual hallucinations; initially admitted to [facility], however now in alcohol withdrawal with vomiting/tremors, and therefore admitted to medicine team. DTS +hallucinations tremors. no vomiting Increase Librium to 75 mg po q 4 Counseled on alcohol cessation. Continue thiamine/folate/MV. CIWA protocol with Ativan prn and haldol . - he is getting on average almost Seizure precautions, Monitor on telemetry, Neuro checks. Supportive treatment with IVF, antiemetics. Admitted to ICU, monitor closely. IV Haldol prn. Lactulose once daily patient states he is on Klonopin as OP History of schizophrenia Auditory/Visual Hallucinations:- none today under [employer] Act. Likely multifactorial with hx of schizophrenia and acute alcohol withdrawal. UDS negative. psychiatry, Dr. Aguilar- ff Epigastric Pain: likely related to alcohol withdrawal.- resolved. Protonix, change to po. Antiemetics prn. Diet as tolerated. recheck lipase level Hypokalemia: replace with IV KCl. Monitor electrolytes. Elevated LFTs: likely secondary to hep C, cirrhosis, and alcohol abuse. Avoid hepatotoxins. Monitor LFTs. Cirrhosis/Hepatitis C: chronic, needs outpatient f/up with gastroenterology. Monitor for confusion, start lactulose if necessary. SIRS Criteria: with +tachycardia and leukocytosis WBC 13.3K. Likely reactive to above. Give IVF. Repeat CBC today with WBC 10K, improved. Monitor for fevers. Hypertension: no reported hx of htn. BP 177/85 in ER. Likely secondary to withdrawal. Clonidine prn. COPD: chronic, does not appear to be in exacerbation. Nebs prn. DVT Prophylaxis: Heparin restraints Andrea Willard MD Jul 16, 2016 10:59
[2016-07-16 13:25] LABS: ALKALINE PHOSPHATASE 155 U/L (45-117); ALT (GPT) 31 U/L (12-78); ANION GAP 7 MEQ/L (5-15); AST (GOT) 33 U/L (15-37); BICARBONATE 25.1 MEQ/L (21.0-32.0); BLOOD UREA NITROGEN 7 MG/DL (7-18); CHLORIDE 111 MEQ/L (98-107); GLOMERULAR FILTRATION RATE 134 ML/MIN (>89); POTASSIUM 3.6 MEQ/L (3.5-5.1); SODIUM (NA) 143 MEQ/L (136-145); TOTAL BILIRUBIN ADULT 2.2 MG/DL (0.2-1.0)
[2016-07-16] MEDS ORDERED: RESP: LIDOCAINE HCL 2% 2 ML NEB NEB ONE (14:15)
[2016-07-16] MEDS: QUEtiapine FUMARATE 100 MG TAB PO SCH (20:04)
[2016-07-16] MEDS: ACETAMINOPHEN 325 MG TAB PO PRN (20:30)
[2016-07-16] MEDS: LORazepam 2 MG TAB PO PRN (20:47)
[2016-07-17] VITALS (14 sets, daily range): BP systolic 129–147; BP diastolic 75–89; PULSE 86–104; RESP 20–24; TEMP 97.8–98.4; O2SAT 91–100
[2016-07-17] MEDS: chlordiazePOXIDE 25 MG CAP PO SCH ×7 (00:34→23:37)
[2016-07-17] MEDS: RESP: ALBUTEROL 2.5 MG/IPRATROPIUM 0.5 MG NEB (SCH) NEB ×4 (03:22→20:19)
[2016-07-17] MEDS: LORazepam 2 MG/ML VIAL IV PUSH PRN ×2 (03:27→23:37)
[2016-07-17] MEDS: HEPARIN SODIUM - SQ 10,000 UNITS/ML VIAL SQ SCH ×2 (03:28→14:53)
[2016-07-17] MEDS: CHLORHEXIDINE GLUCONATE 2 % 1 PACK (2 CLOTHS) TOP SCH (03:28)
[2016-07-17] MEDS: DOCUSATE SODIUM 100 MG CAP PO SCH ×2 (03:35→14:52)
[2016-07-17] MEDS: NS + KCL 20 MEQ INJ 1,000 ML IV SCH ×2 (03:47→17:55)
[2016-07-17] MEDS: FOLIC ACID 1 MG TAB PO SCH (07:33)
[2016-07-17] MEDS: THIAMINE HCL 100 MG TAB PO SCH (07:33)
[2016-07-17] MEDS: PANTOPRAZOLE SODIUM 40 MG VIAL IV SCH (07:33)
[2016-07-17] MEDS: MULTIVITAMINS/MINERALS THERAPEUTIC TAB PO SCH (07:33)
[2016-07-17] MEDS: LACTULOSE SYRUP 20 GM/30 ML CUP PO SCH ×3 (07:33→17:55)
--- NOTE | 2016-07-17 07:38 | HHI.PR ---
Subjective Remarks awake and alert, oriented x 3 overnight was calm per night nurse discuss with him that as much as possible we dont want him on restraints Objective Vitals Vital Signs Date Time Temp Pulse Resp B/P Pulse Ox O2 Delivery O2 Flow Rate FiO2 07/17/16 04:00 98.4 103 20 129/76 92 07/17/16 04:00 103 07/17/16 02:00 96 07/17/16 00:00 98.1 98 22 141/75 91 07/17/16 00:00 98 07/16/16 22:00 126 07/16/16 20:25 97 Nasal Cannula 3.00 07/16/16 20:00 98.5 108 20 145/78 91 07/16/16 20:00 108 07/16/16 18:00 98 07/16/16 16:00 93 07/16/16 16:00 98.2 119 22 144/69 93 07/16/16 14:00 97 07/16/16 13:54 98.3 98 20 140/83 100 07/16/16 12:00 98 07/16/16 10:20 98 Nasal Cannula 2.00 07/16/16 10:00 109 07/16/16 08:00 106 07/16/16 08:00 97.6 96 24 132/83 96 I/O 07/16/16 07/16/16 07/16/16 07/17/16 07/17/16 07/17/16 07:00 15:00 23:00 07:00 15:00 23:00 Intake Total 900 ml 1345 ml 875 ml Output Total 700 ml 1200 ml 650 ml Balance 200 ml 145 ml 225 ml Intake Oral 240 ml 650 ml 240 ml IV Total 660 ml 695 ml 635 ml Output Urine Total 700 ml 1200 ml 650 ml # Bowel Movements 0 0 Result Diagram: 07/14/16 0306 07/16/16 1225 Objective Remarks awake and alert x 3, ff commands still slightly tremulous anicteric lungs clear regular rhythm, tachycardic abdomen soft, no guarding, no rigidity extremities no edema moves all extremities A/P Assessment and Plan 51-year-old male with history of schizophrenia not on medications, alcohol abuse , COPD, hepatitis C, liver cirrhosis, presents under Roger Act for auditory and visual hallucinations; initially admitted to [facility], however now in alcohol withdrawal with vomiting/tremors, and therefore admitted to medicine team. DTS continue on current Librium to 75 mg po q 4 Counseled on alcohol cessation. Continue thiamine/folate/MV. CIWA protocol with Ativan prn and haldol . - Seizure precautions, Monitor on telemetry, Neuro checks. Supportive treatment with IVF, Lactulose once daily History of schizophrenia Auditory/Visual Hallucinations:-resolved under Roger Act. Likely multifactorial with hx of schizophrenia and acute alcohol withdrawal. UDS negative. psychiatry, Dr. Aguilar- ff states he is on Klonopin yesterday, now states he is on Xanax he seems to know his drugs Epigastric Pain: likely related to alcohol withdrawal.- Resolved po Protonix, change to po. Antiemetics prn. Diet as tolerated. Lipase normal Hypokalemia: replace with IV KCl. Monitor electrolytes. Elevated LFTs: likely secondary to hep C, cirrhosis, and alcohol abuse. Avoid hepatotoxins. Monitor LFTs. Cirrhosis/Hepatitis C: chronic, needs outpatient f/up with gastroenterology. Monitor for confusion, start lactulose if necessary. SIRS Criteria: with +tachycardia and leukocytosis WBC 13.3K. Likely reactive to above. Give IVF. Repeat CBC today with WBC 10K, improved. Monitor for fevers. Hypertension: no reported hx of htn. BP 177/85 in ER. Likely secondary to withdrawal. Clonidine prn. COPD: chronic, does not appear to be in exacerbation. Nebs prn. DVT Prophylaxis: Heparin restraints as needed Out of bed to chair today Andrea Willard MD Jul 17, 2016 07:38
[2016-07-17] MEDS: SODIUM CHLORIDE 0.9% FLUSH 5 ML FLUSH FLUSH SCH ×2 (07:58→20:47)
[2016-07-17 12:27] LABS: BICARBONATE 22.6 MEQ/L (21.0-32.0)
[2016-07-17] MEDS: QUEtiapine FUMARATE 100 MG TAB PO SCH (20:46)
[2016-07-17] MEDS: HALOPERIDOL LACTATE 5 MG/ML AMP IV PRN (23:38)
[2016-07-18] VITALS (10 sets, daily range): BP systolic 124–147; BP diastolic 64–94; PULSE 94–106; RESP 20–36; TEMP 97.9–99.3; O2SAT 92–100
[2016-07-18] MEDS: LORazepam 2 MG/ML VIAL IV PUSH PRN ×3 (01:43→21:41)
[2016-07-18] MEDS: RESP: ALBUTEROL 2.5 MG/IPRATROPIUM 0.5 MG NEB (SCH) NEB ×4 (03:05→20:54)
[2016-07-18] MEDS: chlordiazePOXIDE 25 MG CAP PO SCH ×4 (03:07→20:15)
[2016-07-18] MEDS: DOCUSATE SODIUM 100 MG CAP PO SCH ×2 (03:07→15:24)
[2016-07-18] MEDS: HEPARIN SODIUM - SQ 10,000 UNITS/ML VIAL SQ SCH ×2 (03:07→15:24)
[2016-07-18] MEDS: CHLORHEXIDINE GLUCONATE 2 % 1 PACK (2 CLOTHS) TOP SCH (04:00)
[2016-07-18] MEDS: NS + KCL 20 MEQ INJ 1,000 ML IV SCH ×3 (04:04→20:16)
[2016-07-18] MEDS: LACTULOSE SYRUP 20 GM/30 ML CUP PO SCH ×3 (08:22→18:00)
[2016-07-18] MEDS: MULTIVITAMINS/MINERALS THERAPEUTIC TAB PO SCH (08:22)
[2016-07-18] MEDS: FOLIC ACID 1 MG TAB PO SCH (08:23)
[2016-07-18] MEDS: PANTOPRAZOLE SODIUM 40 MG VIAL IV SCH (08:23)
[2016-07-18] MEDS: THIAMINE HCL 100 MG TAB PO SCH (08:23)
[2016-07-18] MEDS: SODIUM CHLORIDE 0.9% FLUSH 5 ML FLUSH FLUSH SCH ×2 (08:23→20:15)
--- NOTE | 2016-07-18 13:10 | HHI.PR ---
Subjective Remarks Follow-up DTs/ 07/18/16-patient seen and examined, he was sedated after receiving Librium. Upper sternum to restrains were placed secondary to agitation. Afebrile Objective Vitals Vital Signs Date Time Temp Pulse Resp B/P Pulse Ox O2 Delivery O2 Flow Rate FiO2 07/18/16 06:00 106 07/18/16 04:00 106 07/18/16 04:00 98.0 106 22 147/80 97 07/18/16 02:00 99 07/18/16 00:00 96 07/18/16 00:00 97.9 96 20 140/80 99 07/17/16 22:00 104 07/17/16 20:20 100 Nasal Cannula 4.00 07/17/16 20:00 97.9 101 22 147/82 98 07/17/16 20:00 101 07/17/16 18:00 96 07/17/16 16:00 98.3 86 20 145/82 97 07/17/16 16:00 100 07/17/16 14:00 89 I/O 07/17/16 07/17/16 07/17/16 07/18/16 07/18/16 07/18/16 07:00 15:00 23:00 07:00 15:00 23:00 Intake Total 700 ml 1074 ml 890 ml 696 ml Output Total 850 ml 1000 ml 1100 ml 800 ml Balance -150 ml 74 ml -210 ml -104 ml Intake Oral 120 ml 450 ml 240 ml 120 ml IV Total 580 ml 624 ml 650 ml 576 ml Output Urine Total 850 ml 1000 ml 1100 ml 800 ml # Bowel Movements 0 1 0 Result Diagram: 07/14/16 0306 07/17/16 1139 Objective Remarks GENERAL: NAD however sedated and resting SKIN: Warm and dry. HEAD: Normocephalic. EYES: No scleral icterus. No injection or drainage. NECK: Supple, trachea midline. No JVD or lymphadenopathy. CARDIOVASCULAR: Regular rate and rhythm without murmurs, gallops, or rubs. RESPIRATORY: Breath sounds equal bilaterally. No accessory muscle use. GASTROINTESTINAL: Abdomen soft, non-tender, nondistended. MUSCULOSKELETAL: No cyanosis, or edema. Restrains to upper extremities BACK: Nontender without obvious deformity. No CVA tenderness. A/P Problem List: (1) Alcohol withdrawal delirium ICD Code: F10.231 Status: Acute (2) Schizophrenia ICD Code: F20.9 Status: Acute Assessment and Plan 51-year-old man with DTS Was changed Librium to 50 every 8H1 day then Librium 25 mg every 8 hours 1 day followed by 25 mg twice a day following day Counseled on alcohol cessation. Continue thiamine/folate/MV. CIWA protocol with Ativan prn and haldol . - Seizure precautions, Monitor on telemetry, Neuro checks. Supportive treatment with IVF, Lactulose once daily History of schizophrenia Auditory/Visual Hallucinations:-resolved under Roger Act. Likely multifactorial with hx of schizophrenia and acute alcohol withdrawal. UDS negative. psychiatry, Dr. Aguilar- ff Epigastric Pain: likely related to alcohol withdrawal.- Resolved Hypokalemia: Resolved. Monitor electrolytes. Elevated LFTs: likely secondary to hep C, cirrhosis, and alcohol abuse. Avoid hepatotoxins. Monitor LFTs. Cirrhosis/Hepatitis C: chronic, needs outpatient f/up with gastroenterology. Monitor for confusion, continue lactulose SIRS Criteria: Resolved Hypertension: Clonidine prn. COPD: chronic, Nebs prn. DVT Prophylaxis: Heparin Problem Qualifiers (1) Schizophrenia: Qualified Code: F20.9 - Schizophrenia, unspecified type Raymon Marrero MD Jul 18, 2016 13:10
[2016-07-18] MEDS: LORazepam 1 MG TAB PO PRN (15:24)
[2016-07-18] MEDS: QUEtiapine FUMARATE 100 MG TAB PO SCH (20:15)
[2016-07-19] VITALS (14 sets, daily range): BP systolic 119–151; BP diastolic 67–77; PULSE 85–97; RESP 20–37; TEMP 97.3–99; O2SAT 92–98
[2016-07-19] MEDS: LORazepam 2 MG/ML VIAL IV PUSH PRN ×5 (01:02→15:55)
[2016-07-19] MEDS: DOCUSATE SODIUM 100 MG CAP PO SCH ×2 (03:00→13:23)
[2016-07-19] MEDS: RESP: ALBUTEROL 2.5 MG/IPRATROPIUM 0.5 MG NEB (SCH) NEB ×4 (03:30→19:32)
[2016-07-19] MEDS: HEPARIN SODIUM - SQ 10,000 UNITS/ML VIAL SQ SCH ×2 (03:36→15:25)
[2016-07-19] MEDS: chlordiazePOXIDE 25 MG CAP PO SCH ×3 (03:37→20:03)
[2016-07-19] MEDS: CHLORHEXIDINE GLUCONATE 2 % 1 PACK (2 CLOTHS) TOP SCH (03:37)
[2016-07-19] MEDS: HALOPERIDOL LACTATE 5 MG/ML AMP IV PRN ×2 (06:06→14:53)
[2016-07-19] MEDS: LACTULOSE SYRUP 20 GM/30 ML CUP PO SCH ×3 (08:57→18:51)
[2016-07-19] MEDS: SODIUM CHLORIDE 0.9% FLUSH 5 ML FLUSH FLUSH SCH ×2 (08:57→20:03)
[2016-07-19] MEDS: THIAMINE HCL 100 MG TAB PO SCH (08:57)
[2016-07-19] MEDS: PANTOPRAZOLE SODIUM 40 MG VIAL IV SCH (08:57)
--- NOTE | 2016-07-19 09:44 | HHI.PR ---
Subjective Remarks Follow-up DTs/ 07/18/16-patient seen and examined, he was sedated after receiving Librium. Upper sternum to restrains were placed secondary to agitation. Afebrile 07/19/16-patient seen and examined, alert and oriented however show some confusions. still in 4. restraints Objective Vitals Vital Signs Date Time Temp Pulse Resp B/P Pulse Ox O2 Delivery O2 Flow Rate FiO2 07/19/16 08:07 97 07/19/16 08:00 98.2 85 20 151/69 98 07/19/16 08:00 85 07/19/16 06:00 94 07/19/16 04:00 97.3 96 29 130/68 93 07/19/16 04:00 96 07/19/16 02:00 86 07/19/16 00:00 98.8 87 29 119/70 92 07/19/16 00:00 87 07/18/16 22:00 94 07/18/16 20:00 103 36 124/64 92 07/18/16 20:00 103 07/18/16 19:45 93 07/18/16 16:00 98.8 101 30 124/70 100 07/18/16 12:00 98.4 98 30 134/94 97 I/O 07/18/16 07/18/16 07/18/16 07/19/16 07/19/16 07/19/16 07:00 15:00 23:00 07:00 15:00 23:00 Intake Total 696 ml 1325 ml 800 ml 319 ml Output Total 800 ml 1000 ml 1400 ml 500 ml Balance -104 ml 325 ml -600 ml -181 ml Intake Oral 120 ml 200 ml IV Total 576 ml 1125 ml 800 ml 319 ml Output Urine Total 800 ml 1000 ml 1400 ml 500 ml # Bowel Movements 0 0 Result Diagram: 07/17/16 1139 Objective Remarks GENERAL: NAD however sedated and resting SKIN: Warm and dry. HEAD: Normocephalic. EYES: No scleral icterus. No injection or drainage. NECK: Supple, trachea midline. No JVD or lymphadenopathy. CARDIOVASCULAR: Regular rate and rhythm without murmurs, gallops, or rubs. RESPIRATORY: Breath sounds equal bilaterally. No accessory muscle use. GASTROINTESTINAL: Abdomen soft, non-tender, nondistended. MUSCULOSKELETAL: No cyanosis, or edema. Restrains to upper and lower extremities BACK: Nontender without obvious deformity. No CVA tenderness. A/P Problem List: (1) Alcohol withdrawal delirium ICD Code: F10.231 Status: Acute (2) Schizophrenia ICD Code: F20.9 Status: Acute Assessment and Plan 51-year-old man with DTS Continue Librium 50 every 8H1 day then Librium 25 mg every 8 hours 1 day followed by 25 mg twice a day following day Counseled on alcohol cessation. Continue thiamine/folate/MV. CIWA protocol with Ativan prn and haldol . - Seizure precautions, Monitor on telemetry, Neuro checks. Supportive treatment with IVF, Lactulose once daily History of schizophrenia Auditory/Visual Hallucinations:-resolved under [place] Act. Likely multifactorial with hx of schizophrenia and acute alcohol withdrawal. UDS negative. psychiatry, Dr. Aguilar- ff Epigastric Pain: likely related to alcohol withdrawal.- Resolved Hypokalemia: Resolved. Monitor electrolytes. Elevated LFTs: likely secondary to hep C, cirrhosis, and alcohol abuse. Avoid hepatotoxins. Monitor LFTs. Cirrhosis/Hepatitis C: chronic, needs outpatient f/up with gastroenterology. Monitor for confusion, continue lactulose SIRS Criteria: Resolved Hypertension: Clonidine prn. COPD: chronic, Nebs prn. DVT Prophylaxis: Heparin Problem Qualifiers (1) Schizophrenia: Qualified Code: F20.9 - Schizophrenia, unspecified type Raymon Marrero MD Jul 19, 2016 09:44
[2016-07-19] MEDS: NS + KCL 20 MEQ INJ 1,000 ML IV SCH (13:23)
[2016-07-19] MEDS: SODIUM CHLORIDE 0.9% FLUSH 5 ML FLUSH FLUSH PRN (14:53)
[2016-07-19] MEDS ORDERED: LORazepam 2 MG/ML VIAL IV PUSH PRN (16:00)
[2016-07-19] MEDS ORDERED: ZIPRASIDONE MESYLATE 20 MG VIAL IM SCH (17:00)
[2016-07-19] MEDS: QUEtiapine FUMARATE 100 MG TAB PO SCH (20:03)
[2016-07-20] VITALS (14 sets, daily range): BP systolic 113–131; BP diastolic 71–92; PULSE 84–98; RESP 14–36; TEMP 97.6–99; O2SAT 92–96
[2016-07-20] MEDS: NS + KCL 20 MEQ INJ 1,000 ML IV SCH ×2 (00:13→14:11)
[2016-07-20] MEDS: HEPARIN SODIUM - SQ 10,000 UNITS/ML VIAL SQ SCH ×2 (01:54→15:37)
[2016-07-20] MEDS: CHLORHEXIDINE GLUCONATE 2 % 1 PACK (2 CLOTHS) TOP SCH (01:55)
[2016-07-20] MEDS: DOCUSATE SODIUM 100 MG CAP PO SCH ×2 (01:55→15:37)
[2016-07-20] MEDS: HALOPERIDOL LACTATE 5 MG/ML AMP IV PRN ×2 (02:23→14:11)
[2016-07-20] MEDS: LORazepam 2 MG/ML VIAL IV PUSH PRN ×7 (02:23→22:09)
[2016-07-20] MEDS: RESP: ALBUTEROL 2.5 MG/IPRATROPIUM 0.5 MG NEB (SCH) NEB ×4 (03:12→21:21)
[2016-07-20] MEDS: SODIUM CHLORIDE 0.9% FLUSH 5 ML FLUSH FLUSH PRN (08:52)
[2016-07-20] MEDS: LACTULOSE SYRUP 20 GM/30 ML CUP PO SCH ×3 (08:52→17:42)
[2016-07-20] MEDS: THIAMINE HCL 100 MG TAB PO SCH (08:52)
[2016-07-20] MEDS: chlordiazePOXIDE 25 MG CAP PO SCH ×4 (08:52→19:28)
[2016-07-20] MEDS: SODIUM CHLORIDE 0.9% FLUSH 5 ML FLUSH FLUSH SCH ×2 (08:52→19:28)
[2016-07-20] MEDS: PANTOPRAZOLE SODIUM 40 MG VIAL IV SCH (08:52)
--- NOTE | 2016-07-20 09:34 | HHI.PR ---
Subjective Remarks Follow-up DTs/ 07/18/16-patient seen and examined, he was sedated after receiving Librium. Upper sternum to restrains were placed secondary to agitation. Afebrile 07/19/16-patient seen and examined, alert and oriented however show some confusions. still in 4. restraints 07/20/16-patient seen and examined, he was given Geodon yesterday secondary to confusion which patient still has Objective Vitals Vital Signs Date Time Temp Pulse Resp B/P Pulse Ox O2 Delivery O2 Flow Rate FiO2 07/20/16 09:14 96 Nasal Cannula 2.00 07/20/16 08:00 91 07/20/16 08:00 98.3 91 17 131/92 96 07/20/16 06:00 84 07/20/16 04:00 87 07/20/16 04:00 97.6 87 29 127/84 95 07/20/16 02:00 86 07/20/16 00:00 98.0 93 36 113/77 94 07/20/16 00:00 93 07/19/16 22:00 97 07/19/16 20:00 90 07/19/16 20:00 99.0 90 37 127/67 95 07/19/16 19:33 97 Nasal Cannula 4.00 07/19/16 18:00 93 07/19/16 16:00 91 07/19/16 16:00 98.8 91 24 133/74 96 07/19/16 14:00 93 07/19/16 12:00 90 26 134/76 95 07/19/16 12:00 90 07/19/16 10:00 95 I/O 07/19/16 07/19/16 07/19/16 07/20/16 07/20/16 07/20/16 07:00 15:00 23:00 07:00 15:00 23:00 Intake Total 319 ml 708 ml 824 ml 738 ml Output Total 500 ml 1100 ml 875 ml 700 ml Balance -181 ml -392 ml -51 ml 38 ml Intake Oral 240 ml IV Total 319 ml 708 ml 584 ml 738 ml Output Urine Total 500 ml 1100 ml 875 ml 700 ml # Bowel Movements 1 Result Diagram: 07/17/16 1139 Objective Remarks GENERAL: NAD however sedated and resting SKIN: Warm and dry. HEAD: Normocephalic. EYES: No scleral icterus. No injection or drainage. NECK: Supple, trachea midline. No JVD or lymphadenopathy. CARDIOVASCULAR: Regular rate and rhythm without murmurs, gallops, or rubs. RESPIRATORY: Breath sounds equal bilaterally. No accessory muscle use. GASTROINTESTINAL: Abdomen soft, non-tender, nondistended. MUSCULOSKELETAL: No cyanosis, or edema. Restrains to upper and lower extremities BACK: Nontender without obvious deformity. No CVA tenderness. A/P Problem List: (1) Alcohol withdrawal delirium ICD Code: F10.231 Status: Acute (2) Schizophrenia ICD Code: F20.9 Status: Acute Assessment and Plan 51-year-old man with DTS Continue Librium Protocol Counseled on alcohol cessation. Continue thiamine/folate/MV. CIWA protocol with Ativan prn and haldol . - Seizure precautions, Monitor on telemetry, Neuro checks. Supportive treatment with IVF, Lactulose once daily History of schizophrenia Auditory/Visual Hallucinations:-resolved under Roger Act. Likely multifactorial with hx of schizophrenia and acute alcohol withdrawal. UDS negative. psychiatry, Dr. Aguilar- ff Epigastric Pain: likely related to alcohol withdrawal.- Resolved Hypokalemia: Resolved. Monitor electrolytes. Elevated LFTs: likely secondary to hep C, cirrhosis, and alcohol abuse. Avoid hepatotoxins. Monitor LFTs. Cirrhosis/Hepatitis C: chronic, needs outpatient f/up with gastroenterology. Monitor for confusion, continue lactulose SIRS Criteria: Resolved Hypertension: Clonidine prn. COPD: chronic, Nebs prn. DVT Prophylaxis: Heparin Transfer to med/surg Problem Qualifiers (1) Schizophrenia: Qualified Code: F20.9 - Schizophrenia, unspecified type Raymon Marrero MD Jul 20, 2016 09:34
[2016-07-20] MEDS: LORazepam 2 MG TAB PO PRN (12:17)
--- NOTE | 2016-07-20 18:43 | RADRPT ---
EXAM DATE/TIME: 07/20/2016 18:20 [facility] COMPARISON: No previous studies available for comparison. INDICATIONS : Dysphagia. MEDICAL HISTORY : None. SURGICAL HISTORY : None. ENCOUNTER: Initial ACUITY: 1 day PAIN SCORE: Non-responsive. LOCATION: Bilateral chest FINDINGS: A single view of the chest demonstrates the lungs to be symmetrically aerated without evidence of mas s, infiltrate or effusion. The cardiomediastinal contours are unremarkable. Osseous structures are intact. CONCLUSION: No acute disease. Zheng Pruitt MD on July 20, 2016 at 18:41 Board Certified Radiologist. This report was verified electronically.
[2016-07-20] MEDS: QUEtiapine FUMARATE 100 MG TAB PO SCH (19:28)
[2016-07-21] VITALS (11 sets, daily range): BP systolic 110–140; BP diastolic 68–93; PULSE 84–101; RESP 17–33; TEMP 97.6–99.1; O2SAT 92–99
[2016-07-21] MEDS: NS + KCL 20 MEQ INJ 1,000 ML IV SCH ×2 (00:55→13:25)
[2016-07-21] MEDS: LORazepam 2 MG/ML VIAL IV PUSH PRN ×7 (00:55→23:36)
[2016-07-21] MEDS: DOCUSATE SODIUM 100 MG CAP PO SCH ×2 (02:21→13:25)
[2016-07-21] MEDS: HALOPERIDOL LACTATE 5 MG/ML AMP IV PRN ×2 (02:25→12:43)
[2016-07-21] MEDS: CHLORHEXIDINE GLUCONATE 2 % 1 PACK (2 CLOTHS) TOP SCH ×2 (03:53→04:00)
[2016-07-21] MEDS: HEPARIN SODIUM - SQ 10,000 UNITS/ML VIAL SQ SCH ×2 (03:53→16:00)
[2016-07-21] MEDS: RESP: ALBUTEROL 2.5 MG/IPRATROPIUM 0.5 MG NEB (SCH) NEB ×4 (04:00→21:00)
[2016-07-21 04:29] LABS: AUTOMATED NEUTROPHIL # 3.6 TH/MM3 (1.8-7.7); BASOPHIL % 0.8 % (0.0-2.0); EOSINOPHIL # 0.2 TH/MM3 (0-0.4); EOSINOPHIL % 3.3 % (0.0-4.0); HEMATOCRIT 38.2 % (39.0-51.0); HEMO FLAGS DIFF FINAL; LYMPH % 23.9 % (9.0-44.0); LYMPHOCYTE # 1.6 TH/MM3 (1.0-4.8); MEAN CELL VOLUME 87.8 FL (80.0-100.0); MEAN CORPUSCULAR HEMOGLOBIN 29.4 PG (27.0-34.0); MEAN CORPUSCULAR HGB CONC 33.5 % (32.0-36.0); MONO % 15.8 % (0.0-8.0); NEUT % 56.2 % (16.0-70.0); PLATELET COUNT 139 TH/MM3 (150-450); RED BLOOD COUNT 4.35 MIL/MM3 (4.50-5.90); RED CELL DISTRIBUTION WIDTH 19.2 % (11.6-17.2); WHITE BLOOD COUNT 6.5 TH/MM3 (4.0-11.0)
[2016-07-21 05:02] LABS: ALT (GPT) 26 U/L (12-78); ANION GAP 11 MEQ/L (5-15); AST (GOT) 23 U/L (15-37); BLOOD UREA NITROGEN 7 MG/DL (7-18); CHLORIDE 107 MEQ/L (98-107); GLOMERULAR FILTRATION RATE 120 ML/MIN (>89); POTASSIUM 3.4 MEQ/L (3.5-5.1); SODIUM (NA) 142 MEQ/L (136-145)
[2016-07-21 05:04] LABS: ALKALINE PHOSPHATASE 111 U/L (45-117); TOTAL BILIRUBIN ADULT 1.4 MG/DL (0.2-1.0)
[2016-07-21] MEDS: LACTULOSE SYRUP 20 GM/30 ML CUP PO SCH ×3 (08:09→16:25)
[2016-07-21] MEDS: chlordiazePOXIDE 25 MG CAP PO SCH ×2 (08:09→22:11)
[2016-07-21] MEDS: PANTOPRAZOLE SODIUM 40 MG VIAL IV SCH (08:09)
[2016-07-21] MEDS: SODIUM CHLORIDE 0.9% FLUSH 5 ML FLUSH FLUSH SCH ×2 (08:09→22:13)
[2016-07-21] MEDS: THIAMINE HCL 100 MG TAB PO SCH (08:09)
--- NOTE | 2016-07-21 10:35 | HHI.PR ---
Subjective Remarks Follow-up DTs/ 07/18/16-patient seen and examined, he was sedated after receiving Librium. Upper sternum to restrains were placed secondary to agitation. Afebrile 07/19/16-patient seen and examined, alert and oriented however show some confusions. still in 4. restraints 07/20/16-patient seen and examined, he was given Geodon yesterday secondary to confusion which patient still has 07/21/16-patient seen and examined, Plan for modified barium swallow today. No acute event overnight Objective Vitals Vital Signs Date Time Temp Pulse Resp B/P Pulse Ox O2 Delivery O2 Flow Rate FiO2 07/21/16 08:34 99 Nasal Cannula 2.00 07/21/16 08:00 99.1 90 18 134/84 93 07/21/16 08:00 90 07/21/16 06:00 86 07/21/16 04:00 97.9 90 33 140/90 98 07/21/16 04:00 90 07/21/16 02:00 86 07/21/16 00:00 84 07/21/16 00:00 98.2 84 23 110/68 93 07/20/16 22:00 98 07/20/16 21:22 93 Nasal Cannula 3.00 07/20/16 20:00 96 07/20/16 20:00 99.0 96 32 129/71 96 07/20/16 18:00 91 07/20/16 16:00 98.9 92 20 125/74 94 07/20/16 16:00 92 07/20/16 14:00 98 07/20/16 12:00 98.0 86 14 123/72 92 07/20/16 12:00 86 I/O 07/20/16 07/20/16 07/20/16 07/21/16 07/21/16 07/21/16 07:00 15:00 23:00 07:00 15:00 23:00 Intake Total 738 ml 194 ml 719 ml 605 ml Output Total 700 ml 1900 ml 0 ml 300 ml 650 ml Balance 38 ml -1706 ml 719 ml 305 ml -650 ml Intake Oral 120 ml 0 ml IV Total 738 ml 194 ml 599 ml 605 ml Output Urine Total 700 ml 1900 ml 0 ml 300 ml 650 ml # Bowel Movements 0 0 Result Diagram: 07/21/1632107/21/16321 Objective Remarks GENERAL: NAD however sedated and resting SKIN: Warm and dry. HEAD: Normocephalic. EYES: No scleral icterus. No injection or drainage. NECK: Supple, trachea midline. No JVD or lymphadenopathy. CARDIOVASCULAR: Regular rate and rhythm without murmurs, gallops, or rubs. RESPIRATORY: Breath sounds equal bilaterally. No accessory muscle use. GASTROINTESTINAL: Abdomen soft, non-tender, nondistended. MUSCULOSKELETAL: No cyanosis, or edema. Restrains to upper and lower extremities BACK: Nontender without obvious deformity. No CVA tenderness. A/P Problem List: (1) Alcohol withdrawal delirium ICD Code: F10.231 Status: Acute (2) Schizophrenia ICD Code: F20.9 Status: Acute Assessment and Plan 51-year-old man with DTS Continue Librium Protocol Counseled on alcohol cessation. Continue thiamine/folate/MV. CIWA protocol with Ativan prn and haldol . - Seizure precautions, Monitor on telemetry, Neuro checks. Supportive treatment with IVF, Lactulose once daily History of schizophrenia Auditory/Visual Hallucinations:-resolved under Roger Act. Likely multifactorial with hx of schizophrenia and acute alcohol withdrawal. UDS negative. psychiatry, Dr. Aguilar- ff Epigastric Pain: likely related to alcohol withdrawal.- Resolved Hypokalemia: Resolved. Monitor electrolytes. Elevated LFTs: likely secondary to hep C, cirrhosis, and alcohol abuse. Avoid hepatotoxins. Monitor LFTs. Cirrhosis/Hepatitis C: chronic, needs outpatient f/up with gastroenterology. Monitor for confusion, continue lactulose Dysphagia: Plan for modified barium swallow today. Chest x-ray noted and review without any cardio pulmonary disease. SIRS Criteria: Resolved Hypertension: Clonidine prn. COPD: chronic, Nebs prn. DVT Prophylaxis: Heparin Transfer to med/surg Problem Qualifiers (1) Schizophrenia: Qualified Code: F20.9 - Schizophrenia, unspecified type Raymon Marrero MD Jul 21, 2016 10:35
--- NOTE | 2016-07-21 14:06 | RADRPT ---
EXAM DATE/TIME: 07/21/2016 06:00 [facility] COMPARISON: No previous studies available for comparison. INDICATIONS : Dysphagia FLUORO TIME: 4.3 minutes IMAGE COUNT: 0 CONTRAST: Dose as prescribed by speech pathologist. MEDICAL HISTORY : Chronic obstructive pulmonary disease. Dysphagia SURGICAL HISTORY : None. ENCOUNTER: Subsequent ACUITY: 1 week PAIN SCORE: Non-responsive. LOCATION: Bilateral chest FINDINGS: A modified barium swallow was performed with speech pathology. Patient was given a variety of liquids to swallow. For a full detailed report, see report by the speech pathologist. CONCLUSION: Image guidance provided for modified barium swallow. Panda Robbins MD on July 21, 2016 at 14:05 Board Certified Radiologist. This report was verified electronically.
[2016-07-21] MEDS ORDERED: ZIPRASIDONE MESYLATE 20 MG VIAL IM ONE (17:45)
[2016-07-21] MEDS: QUEtiapine FUMARATE 100 MG TAB PO SCH (22:11)
[2016-07-22] VITALS (14 sets, daily range): BP systolic 116–140; BP diastolic 67–82; PULSE 88–116; RESP 15–22; TEMP 96.8–99.3; O2SAT 93–100
[2016-07-22] MEDS: HALOPERIDOL LACTATE 5 MG/ML AMP IV PRN ×2 (00:23→13:44)
[2016-07-22] MEDS: NS + KCL 20 MEQ INJ 1,000 ML IV SCH ×3 (02:35→19:28)
[2016-07-22] MEDS: DOCUSATE SODIUM 100 MG CAP PO SCH ×3 (02:55→13:46)
[2016-07-22] MEDS: CHLORHEXIDINE GLUCONATE 2 % 1 PACK (2 CLOTHS) TOP SCH (04:00)
[2016-07-22] MEDS: LORazepam 2 MG TAB PO PRN (04:25)
[2016-07-22] MEDS: HEPARIN SODIUM - SQ 10,000 UNITS/ML VIAL SQ SCH ×2 (04:25→16:53)
[2016-07-22] MEDS: RESP: ALBUTEROL 2.5 MG/IPRATROPIUM 0.5 MG NEB (SCH) NEB ×2 (04:28→07:25)
[2016-07-22] MEDS ORDERED: ZIPRASIDONE MESYLATE 20 MG VIAL IM ONE (05:45)
[2016-07-22] MEDS: SODIUM CHLORIDE 0.9% FLUSH 5 ML FLUSH FLUSH SCH ×2 (09:00→19:28)
[2016-07-22] MEDS: LACTULOSE SYRUP 20 GM/30 ML CUP PO SCH ×3 (09:00→16:35)
--- NOTE | 2016-07-22 09:18 | HHI.PR ---
Subjective Remarks Follow-up DTs/ 07/18/16-patient seen and examined, he was sedated after receiving Librium. Upper sternum to restrains were placed secondary to agitation. Afebrile 07/19/16-patient seen and examined, alert and oriented however show some confusions. still in 4. restraints 07/20/16-patient seen and examined, he was given Geodon yesterday secondary to confusion which patient still has 07/21/16-patient seen and examined, Plan for modified barium swallow today. No acute event overnight 07/22/16-patient seen and examined. Appears stable today and more talkative. Patient was feeding himself Objective Vitals Vital Signs Date Time Temp Pulse Resp B/P Pulse Ox O2 Delivery O2 Flow Rate FiO2 07/22/16 04:00 97.5 89 16 120/79 94 07/22/16 00:00 97.3 89 17 134/82 93 07/21/16 21:02 94 Nasal Cannula 2.00 07/21/16 20:00 97.7 101 17 121/93 92 07/21/16 16:00 97.6 94 18 118/74 94 07/21/16 12:00 97.7 92 18 133/76 94 07/21/16 10:40 97.7 92 22 137/81 94 I/O 07/21/16 07/21/16 07/21/16 07/22/16 07/22/16 07/22/16 07:00 15:00 23:00 07:00 15:00 23:00 Intake Total 605 ml 360 ml 200 ml Output Total 300 ml 1650 ml 850 ml Balance 305 ml -1290 ml -650 ml Intake Oral 0 ml 360 ml 200 ml IV Total 605 ml Output Urine Total 300 ml 1650 ml 850 ml # Voids 1 1 # Bowel Movements 0 1 Result Diagram: 07/21/16 0322 07/21/16 0322 Objective Remarks GENERAL: NAD SKIN: Warm and dry. HEAD: Normocephalic. EYES: No scleral icterus. No injection or drainage. NECK: Supple, trachea midline. No JVD or lymphadenopathy. CARDIOVASCULAR: Regular rate and rhythm without murmurs, gallops, or rubs. RESPIRATORY: Breath sounds equal bilaterally. No accessory muscle use. GASTROINTESTINAL: Abdomen soft, non-tender, nondistended. MUSCULOSKELETAL: No cyanosis, or edema. Restrains to upper and lower extremities BACK: Nontender without obvious deformity. No CVA tenderness. A/P Problem List: (1) Alcohol withdrawal delirium ICD Code: F10.231 Status: Acute (2) Schizophrenia ICD Code: F20.9 Status: Acute Assessment and Plan 51-year-old man with DTS Continue Librium Protocol Counseled on alcohol cessation. Continue thiamine/folate/MV. CIWA protocol with Ativan prn and haldol . - Seizure precautions, Monitor on telemetry, Neuro checks. Supportive treatment with IVF, Lactulose once daily History of schizophrenia Auditory/Visual Hallucinations:-resolved under Roger Act. Likely multifactorial with hx of schizophrenia and acute alcohol withdrawal. UDS negative. psychiatry, Dr. Aguilar- ff Epigastric Pain: likely related to alcohol withdrawal.- Resolved Hypokalemia: Resolved. Monitor electrolytes. Elevated LFTs: likely secondary to hep C, cirrhosis, and alcohol abuse. Avoid hepatotoxins. Monitor LFTs. Cirrhosis/Hepatitis C: chronic, needs outpatient f/up with gastroenterology. Monitor for confusion, continue lactulose Dysphagia: s/p modified barium swallow 07/21/16. Chest x-ray noted and review without any cardio pulmonary disease. SIRS Criteria: Resolved Hypertension: Clonidine prn. COPD: chronic, Nebs prn. DVT Prophylaxis: Heparin Problem Qualifiers (1) Schizophrenia: Qualified Code: F20.9 - Schizophrenia, unspecified type Raymon Marrero MD Jul 22, 2016 09:17
[2016-07-22] MEDS: PANTOPRAZOLE SODIUM 40 MG VIAL IV SCH (09:54)
[2016-07-22] MEDS: THIAMINE HCL 100 MG TAB PO SCH (09:55)
[2016-07-22] MEDS: chlordiazePOXIDE 25 MG CAP PO SCH ×2 (09:55→22:23)
[2016-07-22] MEDS: LORazepam 2 MG/ML VIAL IV PUSH PRN ×2 (10:05→13:57)
[2016-07-22] MEDS ORDERED: ETOMIDATE 20 MG/10 ML VIAL ONE (17:40)
[2016-07-22] MEDS ORDERED: PROPOFOL 1000 MG/100 ML INJ 100 ML ONE ×2 (17:40→19:10)
[2016-07-22 18:21] LABS: BLOOD GAS BASE EXCESS -1.3 mmol/L (-2-2); BLOOD GAS CARBOXYHEMOGLOBIN 1.2 % (0-4); BLOOD GAS HCO3 24 mmol/L (22-26); BLOOD GAS METHEMOGLOBIN 1.2 % (0-2); BLOOD GAS O2 HGB SATURATION 98 % (90-100); BLOOD GAS OXYGEN CONTENT 20.1 Vol % (12.0-20.0); BLOOD GAS PCO2 45 mmHg (38-42); BLOOD GAS PO2 307 mmHg (61-120); BLOOD GAS TOTAL HGB 14.2 G/DL (12.0-16.0); TEMP CORR TO 98.6
[2016-07-22 18:22] LABS: CRITICAL VALUE NO; DRAW SITE LT RADIAL; FIO2 100 %; LITER FLOW 15 L/M; NUMBER OF ARTERIAL PUNCTURES 1; OXYGEN DEVICE VENTILATOR; STAT YES; ULNAR PULSE Y; VENT SETTINGS AC/VT500/R14/P5
--- NOTE | 2016-07-22 18:30 | RADRPT ---
EXAM DATE/TIME: 07/22/2016 17:44 [facility] COMPARISON: CHEST SINGLE AP, July 20, 2016, 18:20. INDICATIONS : Aspiration. MEDICAL HISTORY : None. SURGICAL HISTORY : None. ENCOUNTER: Initial ACUITY: 1 day PAIN SCORE: Non-responsive. LOCATION: Bilateral chest FINDINGS: ET tube is present with tip overlapping approximately 4 cm above the leobardo. There is opacification o f the right upper lobe not present previously may be collapsed related to mucous plugging. The rest o f the examination has not significantly changed. CONCLUSION: Probable collapsed right upper lobe related to mucous plugging. Aspiration pneumonia is not excluded. Zechariah Perera MD on July 22, 2016 at 18:27 Board Certified Radiologist. This report was verified electronically.
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
[2016-07-22] MEDS ORDERED: fentaNYL 2,500 MCG/NS 250 ML IV SCH (20:30)
[2016-07-22] MEDS ORDERED: CHLORHEXIDINE GLUCONATE 2 % 1 PACK (2 CLOTHS)(extra cloths) TOP PRN (20:30)
--- NOTE | 2016-07-22 21:19 | PD.PROCEDR ---
Procedure Note Procedure Bronchoscopy The bronchoscope was advanced through the ETT into leobardo, which was sharp. Then advanced into the left main stem and each segment, subsegement in the left upper lingula and lower lobe was visualized. There was mild tracheobronchitis with mild friability throughout. There was modest amounts of white secretion. There were no other findings including evidence of mass, anatomic distortions, or hemorrhage. The right upper lobe anatomy showed some segmental distortion with dilation and irregularities both at the apical region as well as in the subsegments of the anteroapical and posterior segments. No specific masses or other lesions were identified throughout the tracheobronchial tree on the right. There was mild tracheal bronchitis with friability. Upon coughing, there was punctate hemorrhage. The bronchoscope was then advanced through the bronchus intermedius and the right middle lobe and right lower lobe. These again had no other anatomic lesions identified. The piece of Hamburger tissue was removed from Right upper bronchus. The bronchoscope was then wedged in the right middle lobe and bronchoalveolar samples were obtained. The bronchoscope was withdrawn and the area was suctioned clear. The bronchoscope was then advanced into the apical segment of the right upper lobe and the bronchioalveolar lavage again performed. Samples were taken and the bronchoscope was removed suctioned the area clear. The bronchoscope was then withdrawn. The patient tolerated the procedure well without evidence of desaturation or complications. Casey Sands MD Jul 22, 2016 21:19
[2016-07-22] MEDS ORDERED: PROPOFOL 1000 MG/100 ML INJ 100 ML IV SCH (21:30)
--- NOTE | 2016-07-22 22:02 | RADRPT ---
EXAM DATE/TIME: 07/22/2016 21:28 [facility] COMPARISON: CHEST SINGLE AP, July 22, 2016, 17:44. INDICATIONS : Post bronchoscopy. MEDICAL HISTORY : Chronic obstructive pulmonary disease. Gastroesophageal reflux disease. Smoker. SURGICAL HISTORY : Appendectomy. ENCOUNTER: Subsequent ACUITY: 2 days PAIN SCORE: Non-responsive. LOCATION: Bilateral chest FINDINGS: The previously seen right upper lobe opacity which is probably collapsed lung has resolved. Mild left lung base atelectasis and/or infiltrate is seen not present previously. NG tube is present with tip in the stomach. ET tube is present with tip overlapping approximately 3 cm above the leobardo. CONCLUSION: Resolution of previously seen right upper lobe collapse with slight left lung base atelectasis and/or infiltrate not present previously. Zechariah Perera MD on July 22, 2016 at 22:00 Board Certified Radiologist. This report was verified electronically.
[2016-07-22] MEDS: QUEtiapine FUMARATE 100 MG TAB PO SCH (22:23)
[2016-07-23] VITALS (17 sets, daily range): BP systolic 97–134; BP diastolic 57–73; PULSE 74–99; RESP 15–38; TEMP 98.6–99.5; O2SAT 92–100
[2016-07-23] MEDS: CHLORHEXIDINE GLUCONATE 2 % 1 PACK (2 CLOTHS)(taper/protocol) TOP SCH (04:00)
[2016-07-23] MEDS: HEPARIN SODIUM - SQ 10,000 UNITS/ML VIAL SQ SCH ×2 (04:49→16:33)
[2016-07-23] MEDS: NS + KCL 20 MEQ INJ 1,000 ML IV SCH (06:07)
[2016-07-23] MEDS: SODIUM CHLORIDE 0.9% FLUSH 5 ML FLUSH FLUSH SCH ×2 (08:25→21:00)
[2016-07-23] MEDS: chlordiazePOXIDE 25 MG CAP PO SCH ×2 (08:25→09:00)
[2016-07-23] MEDS: THIAMINE HCL 100 MG TAB PO SCH (08:25)
[2016-07-23] MEDS: PANTOPRAZOLE SODIUM 40 MG VIAL IV SCH (08:25)
[2016-07-23] MEDS: LACTULOSE SYRUP 20 GM/30 ML CUP PO SCH ×3 (08:25→16:45)
--- NOTE | 2016-07-23 08:27 | HHI.CCPN ---
Subjective Remarks/Hospital Course 51-year-old male with history of schizophrenia not on medications, alcohol abuse , COPD, hepatitis C, liver cirrhosis, presents under Roger Act for auditory and visual hallucinations. He was on the MedSur floor eating dinner very fast today, and he choked on cheeseburger. He was emergently intubated and transferred to ICU. 07/23 Patient is sedated and intubated. s/p bronch with food particles removed from right mainstem bronchus. Objective Vital Signs Date Time Temp Pulse Resp B/P Pulse Ox O2 Delivery O2 Flow Rate FiO2 07/23/16 08:01 95 35 07/23/16 06:00 85 07/23/16 04:00 99.1 15 97/57 07/22/16 17:28 15.00 07/21/16 21:02 Nasal Cannula Intake and Output 07/22/16 07/22/16 07/23/16 08:00 16:00 00:00 Intake Total 200 ml 1920 ml 254 ml Output Total 850 ml 200 ml 800 ml Balance -650 ml 1720 ml -546 ml Result Diagram: 07/21/16 0322 07/21/16 0322 Other Results Laboratory Tests Test 07/22/16 07/22/16 18:15 19:07 Blood Gas Puncture Site LT RADIAL Blood Gas Patient Temperature 98.6 Blood Gas HCO3 24 mmol/L Blood Gas Base Excess -1.3 mmol/L Blood Gas Oxygen Saturation 98 % Arterial Blood pH 7.34 Arterial Blood Partial 45 mmHg Pressure CO2 Arterial Blood Partial 307 mmHg Pressure O2 Arterial Blood Oxygen Content 20.1 Vol % Arterial Blood 1.2 % Carboxyhemoglobin Arterial Blood Methemoglobin 1.2 % Blood Gas Hemoglobin 14.2 G/DL Oxygen Delivery Device VENTILATOR Blood Gas Liter Flow 15 L/M Blood Gas Ventilator Setting AC/VT500/R14/P5 Blood Gas Inspired Oxygen 100 % Nasal Screen MRSA (PCR) NEGATIVE Imaging Last Impressions Chest X-Ray 07/22/16 0000 Signed Impressions: Service Date/Time: Friday, July 22, 2016 21:28 - CONCLUSION: Resolution of previously seen right upper lobe collapse with slight left lung base atelectasis and/or infiltrate not present previously. Zechariah Perera MD Modified Barium Swallow 07/21/16 0600 Signed Impressions: Service Date/Time: Thursday, July 21, 2016 06:00 - CONCLUSION: Image guidance provided for modified barium swallow. Panda Robbins MD Objective Remarks GENERAL: Well-nourished, well-developed patient. Sedated and intubated SKIN: Warm and dry. HEAD: Normocephalic. EYES: No scleral icterus. No injection or drainage. NECK: Supple, trachea midline. No JVD or lymphadenopathy. CARDIOVASCULAR: Regular rate and rhythm without murmurs, gallops, or rubs. RESPIRATORY: Breath sounds equal bilaterally. No accessory muscle use. GASTROINTESTINAL: Abdomen soft, non-tender, nondistended. MUSCULOSKELETAL: No cyanosis, or edema. BACK: Nontender without obvious deformity. No CVA tenderness. Neuro: Sedated and intubated A/P Problem List: (1) Alcohol abuse ICD Code: F10.10 Status: Acute (2) Unspecified psychosis ICD Code: F29 Status: Acute (3) Schizophrenia ICD Code: F20.9 Status: Acute (4) Alcohol withdrawal delirium ICD Code: F10.231 Status: Acute (5) Respiratory failure ICD Code: J96.90 Status: Acute Assessment and Plan Acute hypoxic respiratory failure Aspiration Alcohol abuse Schizophrenia Anemia Thrombocytopenia Plan: Neuro: On Diprivan infusion for sedation , daily sedation vacation Place on Thiamine, MVI and Folic acid On Seroquel 100mg daily, decrease Librium 25mg daily Pulm: Continue with vent support keep sat >92% Bronchodilators, s/p bronch with food particles removed from right bronchus. CXR post bronch yesterday showed overall improvements. Will repeat CXR this morning start SBT and possible extubation. CV: Monitor HR and BP keep MAP>65mmhg : Monitor renal function, I/O's, electrolytes replacement per protocol. GI: On Protonix 40mg daily for GI prophylaxis, start TF today if remains intubated ID: Monitor for signs of infections ( Fever, WBC) Heme: Monitor CBC Endo: SSI if needed for glycemic control GI and DVT prophylaxis with Protonix and Heparin SQ respectively Check labs today Addendum: Patient is extubated lying in bed in NAD. Requesting orange juice to drink. Awaiting speech eval. Will sign off and transfer care to [facility] Level 3 Problem Qualifiers (1) Schizophrenia: Qualified Code: F20.9 - Schizophrenia, unspecified type Katie Salcido MD Jul 23, 2016 08:27
[2016-07-23] MEDS ORDERED: DEXTROSE 50% IN WATER 50 ML VIAL(D50) IV PUSH PRN (08:45)
[2016-07-23] MEDS: INSULIN NovoLIN REGULAR SUPPLEMENTAL SCALE SQ SCH ×4 (08:45→20:45)
[2016-07-23] MEDS ORDERED: GLUCAGON 1 MG/ML VIAL OTHER PRN (08:45)
--- NOTE | 2016-07-23 09:37 | RADRPT ---
EXAM DATE/TIME: 07/23/2016 08:45 [facility] COMPARISON: CHEST SINGLE AP, July 20, 2016, 18:20. CHEST SINGLE AP, July 22, 2016, 21:28. INDICATIONS: VDRF. MEDICAL HISTORY: None. SURGICAL HISTORY: None. ENCOUNTER: Subsequent ACUITY: 1 week PAIN SCORE: Non-responsive. LOCATION: Bilateral chest FINDINGS: An endotracheal tube has its tip approximately 4 cm above the leobardo. A nasogastric tube has its tip below diaphragm. There is a persistent nodular density within the right mid lung field. CT of the chest may be helpful for further evaluation of this finding if clinically indicated. Left basilar st reakiness is noted consistent with probable atelectasis. The heart is stable. Degenerative changes are noted throughout the thoracic spine. CONCLUSION: 1. Persistent tiny nodular density within the right mid lung filed. CT of the chest may be helpful for further evaluation of this finding. 2. Left basilar streakiness consistent with probable atelectasis and/or infiltrates. 3. Endotracheal tube and nasogastric tube in good positions. Yobani Philip MD on July 23, 2016 at 9:24 Board Certified Radiologist. This report was verified electronically.
[2016-07-23] MEDS: MULTIVITAMIN TAB PO SCH (10:05)
[2016-07-23] MEDS: FOLIC ACID 1 MG TAB PO SCH (10:05)
[2016-07-23 10:15] LABS: AUTOMATED NEUTROPHIL # 7.4 TH/MM3 (1.8-7.7); BASOPHIL # 0.1 TH/MM3 (0-0.2); BASOPHIL % 0.5 % (0.0-2.0); EOSINOPHIL # 0.2 TH/MM3 (0-0.4); EOSINOPHIL % 2.3 % (0.0-4.0); HEMATOCRIT 40.6 % (39.0-51.0); HEMO FLAGS DIFF FINAL; LYMPH % 14.1 % (9.0-44.0); LYMPHOCYTE # 1.5 TH/MM3 (1.0-4.8); MEAN CELL VOLUME 88.5 FL (80.0-100.0); MEAN CORPUSCULAR HEMOGLOBIN 29.1 PG (27.0-34.0); MEAN CORPUSCULAR HGB CONC 32.8 % (32.0-36.0); MONO % 14.3 % (0.0-8.0); NEUT % 68.8 % (16.0-70.0); PLATELET COUNT 144 TH/MM3 (150-450); RED BLOOD COUNT 4.58 MIL/MM3 (4.50-5.90); RED CELL DISTRIBUTION WIDTH 18.8 % (11.6-17.2); WHITE BLOOD COUNT 10.7 TH/MM3 (4.0-11.0)
[2016-07-23 10:32] LABS: ANION GAP 7 MEQ/L (5-15); AST (GOT) 29 U/L (15-37); BICARBONATE 24.6 MEQ/L (21.0-32.0); BLOOD UREA NITROGEN 11 MG/DL (7-18); CHLORIDE 110 MEQ/L (98-107); GLOMERULAR FILTRATION RATE 97 ML/MIN (>89); MAGNESIUM 2.1 MG/DL (1.5-2.5); POTASSIUM 3.4 MEQ/L (3.5-5.1); SODIUM (NA) 142 MEQ/L (136-145)
[2016-07-23 10:35] LABS: ALKALINE PHOSPHATASE 104 U/L (45-117); ALT (GPT) 30 U/L (12-78); TOTAL BILIRUBIN ADULT 0.8 MG/DL (0.2-1.0)
[2016-07-23 13:07] LABS: BLOOD GAS BASE EXCESS -1.1 mmol/L (-2-2); BLOOD GAS CARBOXYHEMOGLOBIN 1.3 % (0-4); BLOOD GAS HCO3 24 mmol/L (22-26); BLOOD GAS O2 HGB SATURATION 96 % (90-100); BLOOD GAS OXYGEN CONTENT 18.6 Vol % (12.0-20.0); BLOOD GAS PCO2 42 mmHg (38-42); BLOOD GAS PO2 110 mmHg (61-120); BLOOD GAS TOTAL HGB 13.7 G/DL (12.0-16.0); CRITICAL VALUE NO; DRAW SITE RT RADIAL; FIO2 35 %; NUMBER OF ARTERIAL PUNCTURES 1; OXYGEN DEVICE VENTILATOR; STAT NO; TEMP CORR TO 98.6; ULNAR PULSE PRESENT; VENT SETTINGS CPAP+5/PS+10
[2016-07-23] MEDS ORDERED: MAGNESIUM SULFATE INJ 2 GM in SODIUM CHLORIDE 0.9% INJ 96 ML IV PRN (13:45)
[2016-07-23] MEDS ORDERED: POTASSIUM CHLOR 40 MEQ PREMIX 100 ML IV PRN ×2 (13:45)
[2016-07-23] MEDS ORDERED: POTASSIUM PHOSPHATE MONOBASIC 500 MG TAB PO/TUBE PRN (13:45)
[2016-07-23] MEDS ORDERED: POTASSIUM PHOSPHATE INJ 30 MMOL in SODIUM CHLOR 0.9% 250 ML INJ 250 ML IV PRN (13:45)
[2016-07-23] MEDS ORDERED: SODIUM PHOSPHATE INJ 30 MMOL in SODIUM CHLOR 0.9% 250 ML INJ 240 ML IV PRN (13:45)
[2016-07-23] MEDS ORDERED: POTASSIUM PHOSPHATE MONOBASIC 500 MG TAB PO PRN (13:45)
[2016-07-23] MEDS ORDERED: POTASSIUM CHLOR 20 MEQ PREMIX 100 ML IV PRN ×2 (13:45)
[2016-07-23] MEDS ORDERED: MAGNESIUM SULFATE INJ 4 GM in SODIUM CHLORIDE 0.9% INJ 92 ML IV PRN (13:45)
[2016-07-23] MEDS ORDERED: MAGNESIUM OXIDE 400 MG TAB PO PRN (13:45)
[2016-07-23] MEDS ORDERED: RESP: ALBUTEROL 2.5 MG/IPRATROPIUM 0.5 MG NEB (PRN) NEB (14:00)
[2016-07-23] MEDS: RESP: ALBUTEROL 2.5 MG/IPRATROPIUM 0.5 MG NEB (SCH) NEB ×3 (14:17→23:32)
[2016-07-23] MEDS: DOCUSATE SODIUM 100 MG CAP PO SCH (14:51)
[2016-07-23] MEDS: QUEtiapine FUMARATE 100 MG TAB PO SCH ×2 (21:00→21:51)
[2016-07-23] MEDS: LORazepam 2 MG/ML VIAL IV PUSH PRN (21:45)
[2016-07-24] VITALS (9 sets, daily range): BP systolic 103–128; BP diastolic 61–72; PULSE 86–105; RESP 20–38; TEMP 97.8–98.6; O2SAT 90–98
[2016-07-24] MEDS: INSULIN NovoLIN REGULAR SUPPLEMENTAL SCALE SQ SCH ×5 (00:45→20:45)
[2016-07-24] MEDS: DOCUSATE SODIUM 100 MG CAP PO SCH ×2 (02:55→16:51)
[2016-07-24] MEDS: HEPARIN SODIUM - SQ 10,000 UNITS/ML VIAL SQ SCH ×2 (02:56→16:52)
[2016-07-24] MEDS: LORazepam 2 MG/ML VIAL IV PUSH PRN ×3 (02:56→20:48)
[2016-07-24] MEDS: CHLORHEXIDINE GLUCONATE 2 % 1 PACK (2 CLOTHS)(taper/protocol) TOP SCH (02:56)
[2016-07-24] MEDS: RESP: ALBUTEROL 2.5 MG/IPRATROPIUM 0.5 MG NEB (SCH) NEB ×6 (03:18→23:16)
[2016-07-24 06:02] LABS: ALT (GPT) 26 U/L (12-78); ANION GAP 11 MEQ/L (5-15); AST (GOT) 22 U/L (15-37); BICARBONATE 25.4 MEQ/L (21.0-32.0); BLOOD UREA NITROGEN 11 MG/DL (7-18); CHLORIDE 105 MEQ/L (98-107); GLOMERULAR FILTRATION RATE 108 ML/MIN (>89); POTASSIUM 3.2 MEQ/L (3.5-5.1); SODIUM (NA) 141 MEQ/L (136-145)
[2016-07-24 06:03] LABS: ALKALINE PHOSPHATASE 124 U/L (45-117); AUTOMATED NEUTROPHIL # 10.1 TH/MM3 (1.8-7.7); BASOPHIL % 0.3 % (0.0-2.0); EOSINOPHIL # 0.1 TH/MM3 (0-0.4); EOSINOPHIL % 0.7 % (0.0-4.0); HEMATOCRIT 38.7 % (39.0-51.0); HEMO FLAGS DIFF FINAL; LYMPH % 11.7 % (9.0-44.0); LYMPHOCYTE # 1.6 TH/MM3 (1.0-4.8); MEAN CELL VOLUME 86.4 FL (80.0-100.0); MEAN CORPUSCULAR HEMOGLOBIN 29.1 PG (27.0-34.0); MEAN CORPUSCULAR HGB CONC 33.7 % (32.0-36.0); MONO % 12.5 % (0.0-8.0); NEUT % 74.8 % (16.0-70.0); PLATELET COUNT 131 TH/MM3 (150-450); RED BLOOD COUNT 4.48 MIL/MM3 (4.50-5.90); RED CELL DISTRIBUTION WIDTH 18.2 % (11.6-17.2); TOTAL BILIRUBIN ADULT 1.5 MG/DL (0.2-1.0); WHITE BLOOD COUNT 13.5 TH/MM3 (4.0-11.0)
[2016-07-24] MEDS: LACTULOSE SYRUP 20 GM/30 ML CUP PO SCH ×3 (08:02→16:51)
[2016-07-24] MEDS: chlordiazePOXIDE 25 MG CAP PO SCH (08:02)
[2016-07-24] MEDS: MULTIVITAMIN TAB PO SCH (08:02)
[2016-07-24] MEDS: THIAMINE HCL 100 MG TAB PO SCH (08:02)
[2016-07-24] MEDS: FOLIC ACID 1 MG TAB PO SCH (08:02)
[2016-07-24] MEDS: PANTOPRAZOLE SODIUM 40 MG VIAL IV SCH (08:02)
[2016-07-24] MEDS: SODIUM CHLORIDE 0.9% FLUSH 5 ML FLUSH FLUSH SCH ×2 (08:03→20:49)
[2016-07-24] MEDS ORDERED: POTASSIUM CHLORIDE 20 MEQ CONTROLLED RELEASE TAB PO ONE (10:15)
--- NOTE | 2016-07-24 10:19 | HHI.PR ---
Subjective Remarks Follow-up Acute hypoxic respiratory failure/alcohol abuse/DTs 07/24/16-patient seen and examined, he is alert and oriented to self but confused. Vitals stable Objective Vitals Vital Signs Date Time Temp Pulse Resp B/P Pulse Ox O2 Delivery O2 Flow Rate FiO2 07/24/16 08:35 92 Nasal Cannula 6.00 07/24/16 04:00 98.0 100 38 128/64 91 07/24/16 00:00 98.2 105 38 112/61 90 07/23/16 20:00 98.9 99 38 134/73 94 07/23/16 19:32 95 Nasal Cannula 6.00 07/23/16 18:00 88 07/23/16 16:00 98.6 90 38 111/61 92 07/23/16 16:00 90 07/23/16 14:20 93 Nasal Cannula 6 07/23/16 14:00 90 07/23/16 13:17 95 35 07/23/16 12:00 35 07/23/16 12:00 87 07/23/16 12:00 99.5 87 20 107/63 97 I/O 07/23/16 07/23/16 07/23/16 07/24/16 07/24/16 07/24/16 07:00 15:00 23:00 07:00 15:00 23:00 Intake Total 841 ml 432 ml 240 ml 240 ml Output Total 100 ml 375 ml 450 ml 500 ml Balance 741 ml 57 ml -210 ml -260 ml Intake Oral 0 ml 240 ml 240 ml IV Total 841 ml 432 ml 0 ml 0 ml Other 0 ml Output Urine Total 100 ml 375 ml 450 ml 500 ml Stool Total 0 ml # Bowel Movements 0 0 Result Diagram: 07/24/16 0523 07/24/16 0523 Imaging Last Impressions Chest X-Ray 07/23/16 0000 Signed Impressions: Service Date/Time: Saturday, July 23, 2016 08:45 - CONCLUSION: 1. Persistent tiny nodular density within the right mid lung filed. CT of the chest may be helpful for further evaluation of this finding. 2. Left basilar streakiness consistent with probable atelectasis and/or infiltrates. 3. Endotracheal tube and nasogastric tube in good positions. Yobani Philip MD Modified Barium Swallow 07/21/16 0600 Signed Impressions: Service Date/Time: Thursday, July 21, 2016 06:00 - CONCLUSION: Image guidance provided for modified barium swallow. Panda Robbins MD Objective Remarks GENERAL: NAD SKIN: Warm and dry. HEAD: Normocephalic. EYES: No scleral icterus. No injection or drainage. NECK: Supple, trachea midline. No JVD or lymphadenopathy. CARDIOVASCULAR: Regular rate and rhythm without murmurs, gallops, or rubs. RESPIRATORY: Breath sounds equal bilaterally. No accessory muscle use. GASTROINTESTINAL: Abdomen soft, non-tender, nondistended. MUSCULOSKELETAL: No cyanosis, or edema. BACK: Nontender without obvious deformity. No CVA tenderness. A/P Problem List: (1) Alcohol withdrawal delirium ICD Code: F10.231 Status: Acute (2) Schizophrenia ICD Code: F20.9 Status: Acute Assessment and Plan 51-year-old man with Acute hypoxic respiratory failure: Resolved, patient was extubated yesterday . DTS Continue Librium Protocol Counseled on alcohol cessation. Continue thiamine/folate/MV. CIWA protocol with Ativan prn and haldol . - Seizure precautions, Monitor on telemetry, Neuro checks. Supportive treatment with IVF, Lactulose once daily History of schizophrenia Auditory/Visual Hallucinations:-resolved Still under Roger Act. Likely multifactorial with hx of schizophrenia and acute alcohol withdrawal. UDS negative. psychiatry, Dr. Aguilar- ff Epigastric Pain: likely related to alcohol withdrawal.- Resolved Hypokalemia: Resolved. Monitor electrolytes. Elevated LFTs: likely secondary to hep C, cirrhosis, and alcohol abuse. Avoid hepatotoxins. Monitor LFTs. Cirrhosis/Hepatitis C: chronic, needs outpatient f/up with gastroenterology. Monitor for confusion, continue lactulose Dysphagia: s/p modified barium swallow 07/21/16. However on 07/22/16 patient has an acute episode of respiratory failure after choking on some fries and he was emergently intubated by critical care medicine SIRS Criteria: Resolved Hypokalemia: Replace electrolyte with 60meq of K 1 and monitor Hypertension: Clonidine prn. COPD: chronic, Nebs prn. DVT Prophylaxis: Heparin Problem Qualifiers (1) Schizophrenia: Qualified Code: F20.9 - Schizophrenia, unspecified type Raymon Marrero MD Jul 24, 2016 10:19
[2016-07-24] MEDS: ACETAMINOPHEN 325 MG TAB PO PRN (13:54)
[2016-07-24] MEDS: QUEtiapine FUMARATE 100 MG TAB PO SCH (20:48)
[2016-07-25] VITALS (9 sets, daily range): BP systolic 114–138; BP diastolic 67–83; PULSE 74–95; RESP 17–25; TEMP 95.9–98.6; O2SAT 91–97
[2016-07-25] MEDS: INSULIN NovoLIN REGULAR SUPPLEMENTAL SCALE SQ SCH ×6 (00:36→20:45)
[2016-07-25] MEDS: LORazepam 2 MG/ML VIAL IV PUSH PRN (02:41)
[2016-07-25] MEDS: DOCUSATE SODIUM 100 MG CAP PO SCH ×2 (02:41→15:00)
[2016-07-25] MEDS: RESP: ALBUTEROL 2.5 MG/IPRATROPIUM 0.5 MG NEB (SCH) NEB ×5 (03:46→19:27)
[2016-07-25] MEDS: HEPARIN SODIUM - SQ 10,000 UNITS/ML VIAL SQ SCH ×2 (05:09→20:41)
[2016-07-25] MEDS: CHLORHEXIDINE GLUCONATE 2 % 1 PACK (2 CLOTHS)(taper/protocol) TOP SCH (05:10)
[2016-07-25 05:58] LABS: AUTOMATED NEUTROPHIL # 4.3 TH/MM3 (1.8-7.7); BASOPHIL # 0.1 TH/MM3 (0-0.2); BASOPHIL % 0.9 % (0.0-2.0); EOSINOPHIL # 0.2 TH/MM3 (0-0.4); EOSINOPHIL % 2.5 % (0.0-4.0); HEMO FLAGS DIFF FINAL; LYMPHOCYTE # 1.3 TH/MM3 (1.0-4.8); MEAN CELL VOLUME 87.6 FL (80.0-100.0); MEAN CORPUSCULAR HEMOGLOBIN 29.7 PG (27.0-34.0); MEAN CORPUSCULAR HGB CONC 33.9 % (32.0-36.0); MONO % 12.5 % (0.0-8.0); NEUT % 64.1 % (16.0-70.0); PLATELET COUNT 116 TH/MM3 (150-450); RED BLOOD COUNT 4.34 MIL/MM3 (4.50-5.90); RED CELL DISTRIBUTION WIDTH 18.3 % (11.6-17.2); WHITE BLOOD COUNT 6.7 TH/MM3 (4.0-11.0)
[2016-07-25] MEDS: LORazepam 1 MG TAB PO PRN (06:00)
[2016-07-25 06:10] LABS: INTERNATIONAL NORMALIZED RATIO 1.3 RATIO; PROTHROMBIN TIME - PATIENT 14.4 SEC (9.8-11.6)
[2016-07-25 06:23] LABS: BICARBONATE 27.4 MEQ/L (21.0-32.0); POTASSIUM 3.1 MEQ/L (3.5-5.1)
[2016-07-25] MEDS: SODIUM CHLORIDE 0.9% FLUSH 5 ML FLUSH FLUSH SCH (09:17)
[2016-07-25] MEDS: FOLIC ACID 1 MG TAB PO SCH (09:19)
[2016-07-25] MEDS: THIAMINE HCL 100 MG TAB PO SCH (09:19)
[2016-07-25] MEDS: PANTOPRAZOLE SODIUM 40 MG VIAL IV SCH (09:19)
[2016-07-25] MEDS: LACTULOSE SYRUP 20 GM/30 ML CUP PO SCH ×3 (09:19→18:00)
[2016-07-25] MEDS: MULTIVITAMIN TAB PO SCH (09:19)
--- NOTE | 2016-07-25 09:24 | HHI.PR ---
Subjective Remarks Follow-up Acute hypoxic respiratory failure/alcohol abuse/DTs 07/24/16-patient seen and examined, he is alert and oriented to self but confused. Vitals stable 07/25/16-patient seen and examined, is alert and somewhat oriented. Yesterday he has a traumatic urethral injury, however now bleeding has resolved. Objective Vitals Vital Signs Date Time Temp Pulse Resp B/P Pulse Ox O2 Delivery O2 Flow Rate FiO2 07/25/16 08:18 98.4 89 17 122/80 92 07/25/16 07:52 93 21 07/25/16 05:50 95.9 85 20 138/75 93 07/25/16 04:00 85 07/25/16 04:00 98.6 85 20 114/67 91 07/25/16 02:00 80 07/25/16 00:00 98.0 74 18 136/81 97 07/25/16 00:00 91 07/24/16 22:00 87 07/24/16 20:02 92 21 07/24/16 20:00 97.8 87 20 103/66 92 07/24/16 20:00 87 07/24/16 16:00 98.5 86 24 113/65 98 07/24/16 12:00 98.6 98 26 113/63 92 I/O 07/24/16 07/24/16 07/24/16 07/25/16 07/25/16 07/25/16 07:00 15:00 23:00 07:00 15:00 23:00 Intake Total 240 ml 360 ml 150 ml Output Total 500 ml 200 ml 750 ml Balance -260 ml 160 ml 150 ml -750 ml Intake Oral 240 ml 360 ml 150 ml IV Total 0 ml 0 ml Output Urine Total 500 ml 200 ml 750 ml # Bowel Movements 0 0 Result Diagram: 07/25/16 0440 07/25/16 0440 Objective Remarks GENERAL: NAD SKIN: Warm and dry. HEAD: Normocephalic. EYES: No scleral icterus. No injection or drainage. NECK: Supple, trachea midline. No JVD or lymphadenopathy. CARDIOVASCULAR: Regular rate and rhythm without murmurs, gallops, or rubs. RESPIRATORY: Breath sounds equal bilaterally. No accessory muscle use. GASTROINTESTINAL: Abdomen soft, non-tender, nondistended. MUSCULOSKELETAL: No cyanosis, or edema. BACK: Nontender without obvious deformity. No CVA tenderness. A/P Problem List: (1) Alcohol withdrawal delirium ICD Code: F10.231 Status: Acute (2) Schizophrenia ICD Code: F20.9 Status: Acute Assessment and Plan 51-year-old man with Acute hypoxic respiratory failure: Resolved, patient was extubated yesterday . DTS Continue Librium Protocol Counseled on alcohol cessation. Continue thiamine/folate/MV. CIWA protocol with Ativan prn and haldol . - Seizure precautions, Monitor on telemetry, Neuro checks. Supportive treatment with IVF, Lactulose once daily History of schizophrenia Auditory/Visual Hallucinations:-resolved Still under Roger Act. Likely multifactorial with hx of schizophrenia and acute alcohol withdrawal. UDS negative. psychiatry, Dr. Aguilar- ff Epigastric Pain: likely related to alcohol withdrawal.- Resolved Elevated LFTs: likely secondary to hep C, cirrhosis, and alcohol abuse. Avoid hepatotoxins. Monitor LFTs. Cirrhosis/Hepatitis C: chronic, needs outpatient f/up with gastroenterology. Monitor for confusion, continue lactulose Dysphagia: s/p modified barium swallow 07/21/16. However on 07/22/16 patient has an acute episode of respiratory failure after choking on some fries and he was emergently intubated by critical care medicine Traumatic urethral injury: 07/24/16, now resolved CBC stable and INR within normal limits. SIRS Criteria: Resolved Hypokalemia: Resolved Hypertension: Clonidine prn. COPD: chronic, Nebs prn. DVT Prophylaxis: Heparin Problem Qualifiers (1) Schizophrenia: Qualified Code: F20.9 - Schizophrenia, unspecified type Raymon Marrero MD Jul 25, 2016 09:24
[2016-07-25] MEDS ORDERED: POTASSIUM CHLORIDE 20 MEQ CONTROLLED RELEASE TAB PO ONE (09:30)
[2016-07-25] MEDS: LORazepam 2 MG TAB PO PRN ×3 (09:35→20:42)
[2016-07-25] MEDS: HALOPERIDOL LACTATE 5 MG/ML AMP IV PRN (16:02)
[2016-07-25] MEDS: QUEtiapine FUMARATE 100 MG TAB PO SCH (21:51)
[2016-07-26] VITALS: BP 117/61; PULSE 91; RESP 20; TEMP 98.9; O2SAT 98
[2016-07-26] MEDS: INSULIN NovoLIN REGULAR SUPPLEMENTAL SCALE SQ SCH ×4 (00:10→12:32)
[2016-07-26] MEDS: SODIUM CHLORIDE 0.9% FLUSH 5 ML FLUSH FLUSH SCH ×2 (00:11→08:49)
[2016-07-26] MEDS: RESP: ALBUTEROL 2.5 MG/IPRATROPIUM 0.5 MG NEB (SCH) NEB ×4 (01:07→12:00)
[2016-07-26] MEDS: HALOPERIDOL LACTATE 5 MG/ML AMP IV PRN (01:54)
[2016-07-26] MEDS: LORazepam 2 MG TAB PO PRN ×2 (01:55→04:50)
[2016-07-26] MEDS: SODIUM CHLORIDE 0.9% FLUSH 5 ML FLUSH FLUSH PRN (01:55)
[2016-07-26] MEDS: DOCUSATE SODIUM 100 MG CAP PO SCH (02:01)
[2016-07-26 04:00] VITALS: BP 134/77; PULSE 93; RESP 20; TEMP 96.4; O2SAT 93
[2016-07-26] MEDS: CHLORHEXIDINE GLUCONATE 2 % 1 PACK (2 CLOTHS)(taper/protocol) TOP SCH (04:00)
[2016-07-26] MEDS: HEPARIN SODIUM - SQ 10,000 UNITS/ML VIAL SQ SCH (04:50)
[2016-07-26 08:23] VITALS: BP 116/60; PULSE 90; RESP 20; TEMP 99.2; O2SAT 91
[2016-07-26] MEDS: ACETAMINOPHEN 325 MG TAB PO PRN (08:31)
[2016-07-26] MEDS: PANTOPRAZOLE SODIUM 40 MG VIAL IV SCH (08:31)
[2016-07-26] MEDS: FOLIC ACID 1 MG TAB PO SCH (08:34)
[2016-07-26] MEDS: THIAMINE HCL 100 MG TAB PO SCH (08:34)
[2016-07-26] MEDS: MULTIVITAMIN TAB PO SCH (08:34)
[2016-07-26] MEDS: LORazepam 2 MG/ML VIAL IV PUSH PRN (08:34)
[2016-07-26] MEDS: LACTULOSE SYRUP 20 GM/30 ML CUP PO SCH (08:47)
[2016-07-26 08:54] VITALS: O2SAT 93
--- NOTE | 2016-07-26 10:33 | HHI.PR ---
Subjective Remarks Follow-up Acute hypoxic respiratory failure/alcohol abuse/DTs 07/24/16-patient seen and examined, he is alert and oriented to self but confused. Vitals stable 07/25/16-patient seen and examined, is alert and somewhat oriented. Yesterday he has a traumatic urethral injury, however now bleeding has resolved. 07/26/16-patient seen and examined; alert and oriented 2 ;patient states "his mind is not coming back" Objective Vitals Vital Signs Date Time Temp Pulse Resp B/P Pulse Ox O2 Delivery O2 Flow Rate FiO2 07/26/16 08:54 93 21 07/26/16 08:23 99.2 90 20 116/60 91 07/26/16 04:00 96.4 93 20 134/77 93 07/26/16 00:00 98.9 91 20 117/61 98 07/25/16 20:00 98.3 91 20 128/83 93 07/25/16 17:01 97.6 95 25 120/74 94 07/25/16 12:16 97.3 90 21 117/70 94 I/O 07/25/16 07/25/16 07/25/16 07/26/16 07/26/16 07/26/16 07:00 15:00 23:00 07:00 15:00 23:00 Intake Total 240 ml 120 ml Output Total 750 ml 1200 ml 300 ml Balance -750 ml -960 ml 120 ml -300 ml Intake Oral 240 ml 120 ml Output Urine Total 750 ml 1200 ml 300 ml # Bowel Movements 0 0 Result Diagram: 07/25/[id number]/25/16439 Objective Remarks GENERAL: NAD SKIN: Warm and dry. HEAD: Normocephalic. EYES: No scleral icterus. No injection or drainage. NECK: Supple, trachea midline. No JVD or lymphadenopathy. CARDIOVASCULAR: Regular rate and rhythm without murmurs, gallops, or rubs. RESPIRATORY: Breath sounds equal bilaterally. No accessory muscle use. GASTROINTESTINAL: Abdomen soft, non-tender, nondistended. MUSCULOSKELETAL: No cyanosis, or edema. BACK: Nontender without obvious deformity. No CVA tenderness. A/P Problem List: (1) Alcohol withdrawal delirium ICD Code: F10.231 Status: Acute (2) Schizophrenia ICD Code: F20.9 Status: Acute Assessment and Plan 51-year-old man with Acute hypoxic respiratory failure: Resolved, patient was extubated yesterday . DTS s/p Librium Protocol Counseled on alcohol cessation. Continue thiamine/folate/MV. CIWA protocol with Ativan prn and haldol . - Seizure precautions, Monitor on telemetry, Neuro checks. Lactulose once daily History of schizophrenia Auditory/Visual Hallucinations:-resolved Still under Roger Act. Likely multifactorial with hx of schizophrenia and acute alcohol withdrawal. UDS negative. psychiatry, Dr. Aguilar- ff Epigastric Pain: likely related to alcohol withdrawal.- Resolved Elevated LFTs: likely secondary to hep C, cirrhosis, and alcohol abuse. Avoid hepatotoxins. Monitor LFTs. Cirrhosis/Hepatitis C: chronic, needs outpatient f/up with gastroenterology. Monitor for confusion, continue lactulose Dysphagia: s/p modified barium swallow 07/21/16. However on 07/22/16 patient has an acute episode of respiratory failure after choking on some fries and he was emergently intubated by critical care medicine Traumatic urethral injury: 07/24/16, now resolved CBC stable and INR within normal limits. SIRS Criteria: Resolved Hypokalemia: Resolved Hypertension: Clonidine prn. COPD: chronic, Nebs prn. DVT Prophylaxis: Heparin Patient is now medically stable for discharge to inpatient psychiatry Problem Qualifiers (1) Schizophrenia: Qualified Code: F20.9 - Schizophrenia, unspecified type Raymon Marrero MD Jul 26, 2016 10:33
[2016-07-26 12:16] VITALS: BP 122/66; PULSE 85; RESP 20; TEMP 96.5; O2SAT 96
[2016-07-26] MEDS ORDERED: ACETAMINOPHEN 325 MG TAB PO PRN (12:30)
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
[2016-07-26] MEDS ORDERED: ACET325T PO (12:37)
[2016-07-26] MEDS ORDERED: QUET1TAB8 PO (12:37)
[2016-07-26] MEDS ORDERED: LACT10SO PO (12:37)
[2016-07-26] MEDS: LORazepam 1 MG TAB PO PRN (12:44)
[2016-07-26] MEDS ORDERED: DOCUSATE SODIUM 100 MG CAP PO PRN (15:00)
[2016-07-26] MEDS ORDERED: LACTULOSE SYRUP 20 GM/30 ML CUP PO SCH (21:00)
[2016-07-27] MEDS ORDERED: PANTOPRAZOLE SOD 40 MG DELAYED RELEASE TAB PO SCH (09:00)
[2016-08-18] MEDS ORDERED: NALT50TA3 PO (12:20)
[2016-08-18] MEDS ORDERED: MIRTA15 PO (12:20)
[2016-08-18] MEDS ORDERED: QUET1TAB7 PO (12:20)
[2016-08-18] MEDS ORDERED: QUET1TAB8 PO (12:20)
== END 2016-07-26 14:57 | DRG 896 ==
LOC: NEPJ 21:04 → NEDA 07-13 14:36 → HIMW 07-13 16:10 → HOCA 07-21 10:25 → HIMN 07-22 18:00 → N05A 07-25 05:37 → N05B 07-25 17:05
PROVIDERS: ADMIT Hospitalist; ATTEND Hospitalist
PROC: 0BC48ZZ Extirpation of Matter from Right Upper Lobe Bronchus, Via Natural or Artificial Opening Endoscopic (ICD-10-PCS; principal; 2016-07-22)
PROC: 5A1935Z Respiratory Ventilation, Less than 24 Consecutive Hours (ICD-10-PCS; 2016-07-22)
PROC: 0BH17EZ Insertion of Endotracheal Airway into Trachea, Via Natural or Artificial Opening (ICD-10-PCS; 2016-07-22)
DX: F10.231 Alcohol dependence with withdrawal delirium (principal); J96.01 Acute respiratory failure with hypoxia; T17.520A Food in bronchus causing asphyxiation, initial encounter; R65.10 Systemic inflammatory response syndrome (SIRS) of non-infectious origin without acute organ dysfunction; D69.6 Thrombocytopenia, unspecified; J44.9 Chronic obstructive pulmonary disease, unspecified; K70.30 Alcoholic cirrhosis of liver without ascites; R13.10 Dysphagia, unspecified; S37.30XA Unspecified injury of urethra, initial encounter; B18.2 Chronic viral hepatitis C; Y90.6 Blood alcohol level of 120-199 mg/100 ml; E87.6 Hypokalemia; F20.9 Schizophrenia, unspecified; R11.2 Nausea with vomiting, unspecified; D64.9 Anemia, unspecified; R10.13 Epigastric pain; Z87.891 Personal history of nicotine dependence; Z23 Encounter for immunization
CPT/HCPCS: 31500; 36600; 71010; 74230; 76937; 80048; 80053; 80307; 82140; 82805; 82948; 83690; 83735; 84100; 85025; 85610; 87641; 90686; 94002; 94003; 94640; 94664; 96365; 96372; C9113; J1630; J1644; J2060; J2405; J3010; J3411; J3480; J3486; J7030; Q2038

== ENCOUNTER 2016-07-26 13:20 | Inpatient (IN) | payer MEDICAID, OTHER ==
[~2016-07-26 13:20] MED LIST: ACET325T PO; ALBU0.08 NEB; HYDR50CA PO; LACT10SO PO; MULT-142; QUET1TAB8 PO; SERO300T PO; SERT-132 PO; VITA100T54 PO
[2016-07-26 17:06] VITALS: BP 120/76; PULSE 90; RESP 18; TEMP 97.9; O2SAT 96
[2016-07-26 17:45] VITALS: BP 120/76; PULSE 90; RESP 18; TEMP 97.9; O2SAT 96
[2016-07-26] MEDS ORDERED: LORazepam 2 MG/ML VIAL IM PRN (18:15)
[2016-07-26] MEDS ORDERED: LORazepam 2 MG/ML VIAL - age > 65 yrs IM PRN (18:15)
[2016-07-26] MEDS ORDERED: LORazepam 0.5 MG TAB age > 65 yrs PO PRN (18:15)
[2016-07-26] MEDS ORDERED: ALUMINUM/MAGNESIUM/SIMETH 30 ML CUP PO PRN (18:15)
[2016-07-26] MEDS ORDERED: MAGNESIUM HYDROXIDE SUSP 30 ML CUP PO PRN (18:15)
[2016-07-26] MEDS: LORazepam 1 MG TAB PO PRN (18:43)
[2016-07-27] MEDS: LORazepam 1 MG TAB PO PRN ×2 (04:29→11:20)
[2016-07-27 06:30] VITALS: BP 124/77; PULSE 87; RESP 17; TEMP 98; O2SAT 95
[2016-07-27 08:18] LABS: ANION GAP 9 MEQ/L (5-15); BICARBONATE 26.5 MEQ/L (21.0-32.0); BLOOD UREA NITROGEN 6 MG/DL (7-18); CHLORIDE 103 MEQ/L (98-107); GLOMERULAR FILTRATION RATE 122 ML/MIN (>89); HDL CHOLESTEROL 48.1 MG/DL (40.0-60.0); LDL CHOLESTEROL 55 MG/DL (0-99); POTASSIUM 3.2 MEQ/L (3.5-5.1); SODIUM (NA) 138 MEQ/L (136-145)
--- NOTE | 2016-07-27 11:58 | HHI.HP ---
Provisional Diagnosis Admission Date Jul 26, 2016 at 13:20 [place] I. Schizophrenia, alcohol use disorder [place] II. Deferred [place] III. COPD, liver cirrhosis, hepatitis C [place] IV. History of drug use [place] V. 45 Certification of Person's Competence To Provide Express and Informed Consent I have personally examined Garrett Huynh , a person being served at [facility] on, Jul 27, 2016 11:53. Express and informed consent means consent voluntarily given in writing, by a competent person, after sufficient explanation and disclosure of the subject matter involved to enable the person to make a knowing and willful decision without any element of force, fraud, deceit, duress, or other form of constraint or coercion. This person is 18 years of age or older, is not now known to be incompetent to consent to treatment with a guardian advocate, and does not have a health care surrogate or proxy currently making medical treatment decisions. I have found this person to be one of the following: [X] Competent to provide express and informed consent, as defined above, for voluntary admission to this facility and is competent to provide express and informed consent for treatment. He/she has the consistent capacity to make well reasoned, willful, and knowing decisions concerning his or her medical or mental health treatment. The person fully and consistently understands the purpose of the admission for examination/placement and is fully capable of personally exercising all rights assured under [place] Incompetent to provide express and informed consent to voluntary admission, and this is incompetent to provide express and informed consent to treatment. The person must be transferred to involuntary status and a petition for a guardian advocate filed with the Circuit Court. [] Refusing to provide express and informed consent to voluntary admission but is competent to provide express and informed consent for treatment. The person must be discharged or transferred to involuntary status. Form shall be completed within 24 hours of a person's arrival at the receiving facility and filed in the clinical record of each person: 1. Admitted on a voluntary basis 2. Permitted to provide express and informed consent to his/her own treatment 3. Allowed to transfer from involuntary to voluntary status 4. Prior to permitting a person to consent to his or her own treatment after having been previously found incompetent to consent to treatment. History of Present Illness Capacity: Has Capacity HPI The patient is a 51-year-old man, domicile with his mother, unemployed , on disability, with psychiatric history of schizophrenia not active psychiatric treatment, alcohol use disorder, multiple psychiatric hospitalizations, 1 previous suicidal attempts, unknown for the service, medical history of COPD, hepatitis C, liver cirrhosis, presents under [place] Act for auditory and visual hallucinations. He was initially admitted to [facility] pod, however now in alcohol withdrawal with vomiting, tremors, and therefore admitted to medicine team. Per the [place] act, the patient's mother called 911 because the patient was hallucinating, hearing voices that people were out to kill him, drinking alcohol excessively, he was then admitted in the medical floor and he was seen by me initially there. The patient admits to hearing voices for many years, usually voices calling his name, at times his voice is currently commanding type, but not at this moment. On this evaluation right now patient is calm, cooperative, requesting to be helped with his auditory hallucinations, but also with his alcohol addiction. Patient states that he just moved to [place] from [place] 6 days ago to live with his mother. He has been drinking alcohol every day, he states he drinks everything he can, wine , vodka and whisky. He denies the use of other drugs, he says that he stopped using drugs many years ago. Patient says that he has been hearing voices for many years, but in the last week voices have increased in frequency, intensity and severity. Patient reports feeling paranoid when he walks on the street around there are people around him. He says that in the past he has been stable and Seroquel 500 mg at bedtime for these voices, Remeron 45 mg to help with sleep and depression, acamprosate 333 mg 3 times a day, clonazepam 1 mg 3 times a da, but he stopped this medications months ago. At this Moment the patient denies suicidal ideation, patient says that he is actually motivated to get better. Patient is fully oriented 3, no attention deficit, fluctuation of consciousness, gross cognitive impairment observed. Patient reports sweating and anxiety due to alcohol craving, but denies tremor an involuntary movements. Patient is willing to sign voluntary admission. Review of Systems Constitutional: DENIES: Diaphoretic episodes, Fatigue, Fever, Weight gain, Weight loss, Chills, Dizziness, Change in appetite, Night Sweats Endocrine: DENIES: Heat/cold intolerance, Polydipsia, Polyuria, Polyphagia Eyes: DENIES: Blurred vision, Diplopia, Eye inflammation, Eye pain, Vision loss , Photosensitivity, Double Vision Ears, nose, mouth, throat: DENIES: Tinnitus, Hearing loss, Vertigo, Nasal discharge, Oral lesions, Throat pain, Hoarseness, Ear Pain, Running Nose, Epistaxis, Sinus Pain, Toothache, Odynophagia Respiratory: DENIES: Apneas, Cough, Snoring, Wheezing, Hemoptysis, Sputum production, Shortness of breath Cardiovascular: DENIES: Chest pain, Palpitations, Syncope, Dyspnea on Exertion , PND, Lower Extremity Edema, Orthopnea, Claudication Gastrointestinal: DENIES: Abdominal pain, Black stools, Bloody stools, Constipation, Diarrhea, Nausea, Vomiting, Difficulty Swallowing, Anorexia Musculoskeletal: DENIES: Joint pain, Muscle aches, Stiffness, Joint Swelling, Back pain, Neck pain Integumentary: DENIES: Abnormal pigmentation, Nail changes, Pruritus, Rash Hematologic/lymphatic: DENIES: Bruising, Lymphadenopathy Immunologic/allergic: DENIES: Eczema, Urticaria Neurologic: DENIES: Abnormal gait, Headache, Localized weakness, Paresthesias, Seizures, Speech Problems, Tremor, Poor Balance Psychiatric: COMPLAINS OF: Depression, Hallucinations, DENIES: Anxiety, Confusion, Mood changes, Agitation, Suicidal Ideation, Homicidal Ideation, Delusions Past Psych History Violence risk - self (6 mos) Increased Substance Abuse History Drugs/Alcohol past 12 months Patient reports daily use of alcohol, denies the use of illicit drugs Past Family Social History Coded Allergies: No Known Allergies (Unverified , 07/13/16) Per [place]ell at the [facility] - in [place], [place] on [address] [phone]. Active Scripts Lactulose Liq 10 Gm/15 Ml Soln30 Ml PO BID #60 ML Prov:Raymon Marrero MD 07/26/16 Acetaminophen 325 Mg [id number] Mg PO Q4H PRN (pain >2) #30 TAB Prov:Raymon Marrero MD 07/26/16 Quetiapine 100 Mg [id number] Mg PO HS #30 TAB Prov:Raymon Marrero MD 07/26/16 Reported Medications Thiamine (Vitamin B-1)100 Mg [id number] Mg PO DAILY 07/13/16 Multiple Vitamins W/ Minerals (Multi Vitamin and Mineral)1 Tab Tab 07/13/16 Albuterol Neb 2.5 Mg/3 Ml Neb2.5 Mg NEB Q4HR NEB PRN (SHORTNESS OF BREATH) 07/13/16 Discontinued Reported Medications Lactulose Liq 10 Gm/15 Ml Soln30 Ml PO TID 07/13/16 Hydroxyzine Pamoate 50 Mg Cap50 Mg PO QID PRN (ANXIETY AND/OR INSOMNIA) 07/13/16 Quetiapine (Seroquel)300 Mg [id number] Mg PO HS 07/13/16 Sertraline 50 Mg Tab50 Mg PO DAILY 07/13/16 Current Medications Medications (Trade) Dose Ordered Sig/[place]juana Route Start Time Stop Time Status Last Admin (Ativan) 1 mg Q6H PRN PO 07/26/16 18:15 07/27/16 11:20 (Ativan Inj) 1 mg Q6H PRN IM 07/26/16 18:15 (Ativan) 0.5 mg Q12H PRN PO 07/26/16 18:15 (Ativan Inj) 0.5 mg Q12H PRN IM 07/26/16 18:15 (Tylenol) 650 mg Q4H PRN PO 07/26/16 18:15 (Milk Of Magnesia Liq) 30 ml DAILY PRN PO 07/26/16 18:15 (Mag-Al Plus Susp Liq) 30 ml Q6H PRN PO 07/26/16 18:15 Family History He denies Social History Patient was born and raised in [place], he has been living in [place] for 6 days, he lives with his mother in [place], he is single, no kids, unemployed, on disability, his highest level of education is GED Patient's Strengths (min. 2) Insight of his alcohol use and psychiatric condition Physical Exam No EPS, no tremors, no active withdrawal symptoms, agitation, no aggressive behavior on physical exam Vital Signs Vital Signs Date Time Temp Pulse Resp B/P Pulse Ox O2 Delivery O2 Flow Rate FiO2 07/27/16 06:30 98.0 87 17 124/77 95 Lab Results Sodium is 138, potassium 3.2, BUN is 6, creatinine 0.6 Mental Status Examination Appearance man, age appearing, visible tattoos in his neck, good hygiene, hospital [facility], calm and cooperative Speech: Unremarkable Orientation: x3 Memory: Unremarkable Thought Process: Logical Thought Content: Unremarkable Hallucination Type: Auditory Attention and Concentration: Good Suicidal Ideation: No Previous Suicide Attempts: Yes Homicidal Ideation: No Previous Homicide Attempts: No Judgement: WNL Affect: Sad Mood: Sad Motor Activity: Normal gait Assessment & Plan Problem List: (1) Schizophrenia Assessment & Plan: The patient is a 51-year-old man with psychiatric history of schizophrenia not on medications, alcohol use disorder, multiple psychiatric hospitalizations, 1 previous suicidal attempts, unknown for the service, medical history of COPD, hepatitis C, liver cirrhosis, presents under Roger Act for auditory and visual hallucinations. Per the [employer] act, the patient's mother called 911 because the patient was hallucinating, hearing voices that people were out to kill him, drinking alcohol excessively. The patient admits to hearing voices for many years, however also now started having visual hallucinations. On psychiatric evaluation today the patient still reporting frequent auditory hallucinations, usually derogatory voices. Patient also reports depressive symptoms, but at the same time he is motivated to engage in treatment and get better. He denies suicidal or homicidal ideation , he denies visual and auditory hallucinations. Patient is oriented 3. Since he was psychotic upon Roger act and during my initial evaluation in the medical floor with continue the process of psychiatric admission for longitudinal observation and stabilization of psychosis. Will start Seroquel 100 mg twice a day for psychosis, Remeron 15 mg at bedtime to help for sleep, clonazepam 0.5 mg twice a day for anxiety. Patient requests medication to decrease alcohol craving, after discussion about pros and cons, he agreed to be started on naltrexone 50 mg at bedtime daily. Would continue CIWA protocol in the Unit. linotype worker intervention for psychosocial assessment, collateral information, counseling and psychotherapy, also to start discharge planning. Extensive psychoeducation, supportive motivation provided. ICD Code: F20.9 (2) Alcohol withdrawal delirium Assessment & Plan: At this moment the patient does not present any symptomatology withdrawal. Continue CIWA Extensive support, motivation psycho education provided Will order Naltrexone 50 mg hs to help with alcohol abuse ICD Code: F10.231 Assessment & Plan Estimated LOS: days Problem Qualifiers (1) Schizophrenia: Qualified Code: F20.0 - Paranoid schizophrenia Sim Aguilar MD Jul 27, 2016 11:58
[2016-07-27] MEDS: clonazePAM 0.5 MG TAB PO SCH ×2 (12:00→21:56)
[2016-07-27] MEDS: NALTREXONE HCL 50 MG TAB PO SCH (12:00)
[2016-07-27] MEDS: QUEtiapine FUMARATE 100 MG TAB PO SCH ×2 (12:00→21:56)
[2016-07-27 14:30] LABS: HEMOGLOBIN A1a 0.8 %; HEMOGLOBIN A1b 0.7 %; HEMOGLOBIN Ao 88.4 %; HEMOGLOBIN F 0.5 %; HEMOGLOBIN LA1C 1.7 %
[2016-07-27 18:37] VITALS: BP 108/65; PULSE 87; RESP 16; TEMP 98.6; O2SAT 95
[2016-07-27] MEDS: MIRTAZAPINE 15 MG TAB PO SCH (21:56)
[2016-07-28] MEDS: LORazepam 1 MG TAB PO PRN ×2 (02:54→14:41)
[2016-07-28 05:45] VITALS: BP 118/73; PULSE 97; RESP 17; TEMP 97.5; O2SAT 93
[2016-07-28] MEDS: NALTREXONE HCL 50 MG TAB PO SCH (09:00)
[2016-07-28] MEDS: QUEtiapine FUMARATE 100 MG TAB PO SCH ×2 (09:08→20:58)
[2016-07-28] MEDS: clonazePAM 0.5 MG TAB PO SCH ×2 (09:08→20:58)
--- NOTE | 2016-07-28 11:15 | HHI.PYPN ---
Subjective Remarks Patient is complaining of difficulties with urination and a change in color and his urine. This will be referred to the hospitalist for further evaluation and treatment. In the meantime, the patient continues to report auditory hallucinations and some paranoid thinking. Review of Systems ROS Limitations: Clinical Condition Except as stated in HPI: all other systems reviewed are Neg Genitourinary: COMPLAINS OF: Dysuria Objective Alert: Yes [place]: Person, Place, Date, Situation Mood: Calm Affect: Euthymic Memory Intact: Immediate, Recent, Remote Hallucinations: Auditory Delusions: Yes Delusion Type: Paranoid, Other Suicidal: Ideation Homicidal: Ideation Insight/Judgement Impaired but adequate Vitals/IOs Vital Signs Date Time Temp Pulse Resp B/P Pulse Ox O2 Delivery O2 Flow Rate FiO2 07/28/16 05:45 97.5 97 17 118/73 93 Intake and Output 07/27/16 07/27/16 07/28/16 08:00 16:00 00:00 Intake Total 360 ml 360 ml Balance 360 ml 360 ml Assessment & Plan Problem List: (1) Schizophrenia ICD Code: F20.9 (2) Alcohol withdrawal delirium ICD Code: F10.231 Assessment & Plan Estimated LOS: 5 days patient appears to be a combination of schizophrenia with hallucinations and paranoia as well as multiple medical problems. This physician plans to stabilize the schizophrenia and ask the hospitalist to address his multiple medical issues. Justification for Cont. Inpt. Patient is unable to care for self. Problem Qualifiers (1) Schizophrenia: Qualified Code: F20.0 - Paranoid schizophrenia Omar Mcleod MD Jul 28, 2016 11:15
[2016-07-28] MEDS ORDERED: POTASSIUM CHLORIDE 20 MEQ CONTROLLED RELEASE TAB PO ONE (13:00)
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
[2016-07-28 14:13] LABS: BACTERIA, URINE RARE /hpf; BLOOD, URINE LARGE (NEG); GLUCOSE,URINE NEG (NEG); KETONE, URINE NEG (NEG); NITRITE,URINE NEG (NEG); PH, URINE 7.5 (5.0-8.5)
[2016-07-28 14:23] LABS: URINE COLOR LIGHT-RED (YELLW/STRAW)
[2016-07-28 14:27] LABS: COMMENT (UR) CULT NOT INDICATED; CULTURE IF INDICATED CULT NOT INDICATED
[2016-07-28 17:02] VITALS: BP 122/77; PULSE 89; RESP 18; TEMP 98.2; O2SAT 97
[2016-07-28] MEDS: MIRTAZAPINE 15 MG TAB PO SCH (20:58)
[2016-07-28] MEDS ORDERED: ARIPiprazole 5 MG TAB PO SCH (21:00)
[2016-07-29] MEDS: LORazepam 1 MG TAB PO PRN ×2 (02:03→12:23)
[2016-07-29 06:41] VITALS: BP 128/77; PULSE 101; RESP 18; TEMP 98.2; O2SAT 98
[2016-07-29 07:54] LABS: BASOPHIL # 0.1 TH/MM3 (0-0.2); BASOPHIL % 0.8 % (0.0-2.0); EOSINOPHIL # 0.3 TH/MM3 (0-0.4); EOSINOPHIL % 2.9 % (0.0-4.0); HEMATOCRIT 41.1 % (39.0-51.0); HEMO FLAGS DIFF FINAL; LYMPH % 10.6 % (9.0-44.0); LYMPHOCYTE # 1.2 TH/MM3 (1.0-4.8); MEAN CELL VOLUME 87.6 FL (80.0-100.0); MEAN CORPUSCULAR HEMOGLOBIN 28.6 PG (27.0-34.0); MEAN CORPUSCULAR HGB CONC 32.7 % (32.0-36.0); MONO % 7.2 % (0.0-8.0); NEUT % 78.5 % (16.0-70.0); PLATELET COUNT 157 TH/MM3 (150-450); RED BLOOD COUNT 4.69 MIL/MM3 (4.50-5.90); RED CELL DISTRIBUTION WIDTH 17.7 % (11.6-17.2); WHITE BLOOD COUNT 11.5 TH/MM3 (4.0-11.0)
[2016-07-29] MEDS: NALTREXONE HCL 50 MG TAB PO SCH (09:00)
[2016-07-29] MEDS: QUEtiapine FUMARATE 100 MG TAB PO SCH ×2 (09:05→20:52)
[2016-07-29] MEDS: clonazePAM 0.5 MG TAB PO SCH ×2 (09:05→20:52)
--- NOTE | 2016-07-29 10:04 | HHI.PYPN ---
Subjective Remarks Patient continues to be paranoid and disorganized. He would like an increase in his dose of Seroquel to 200 mg twice a day and this physician agrees. Review of Systems ROS Limitations: Clinical Condition Objective Alert: Yes [place]: Person, Place, Date, Situation Mood: Calm Affect: Euthymic Memory Intact: Immediate, Recent, Remote Hallucinations: Auditory Delusions: Yes Delusion Type: Paranoid, Other Suicidal: Ideation Homicidal: Ideation Insight/Judgement Impaired but adequate Labs Test 07/28/16 07/29/16 13:38 07:18 Urine Color LIGHT-RED Urine Turbidity HAZY Urine pH 7.5 Urine Specific [place] 1.005 Urine Protein TRACE mg/dL Urine Glucose (UA) NEG mg/dL Urine Ketones NEG mg/dL Urine Occult Blood LARGE Urine Nitrite NEG Urine Bilirubin NEG Urine Urobilinogen LESS THAN 2.0 MG/DL Urine Leukocyte Esterase TRACE Urine RBC /hpf Urine WBC 7 /hpf Urine Bacteria RARE /hpf Microscopic Urinalysis Comment CULT NOT INDICATED White Blood Count 11.5 TH/MM3 Red Blood Count 4.69 MIL/MM3 Hemoglobin 13.4 GM/DL Hematocrit 41.1 % Mean Corpuscular Volume 87.6 FL Mean Corpuscular Hemoglobin 28.6 PG Mean Corpuscular Hemoglobin 32.7 % Concent Red Cell Distribution Width 17.7 % Platelet Count 157 TH/MM3 Mean Platelet Volume 9.0 FL Neutrophils (%) (Auto) 78.5 % Lymphocytes (%) (Auto) 10.6 % Monocytes (%) (Auto) 7.2 % Eosinophils (%) (Auto) 2.9 % Basophils (%) (Auto) 0.8 % Neutrophils # (Auto) 9.0 TH/MM3 Lymphocytes # (Auto) 1.2 TH/MM3 Monocytes # (Auto) 0.8 TH/MM3 Eosinophils # (Auto) 0.3 TH/MM3 Basophils # (Auto) 0.1 TH/MM3 CBC Comment DIFF FINAL Differential Comment Vitals/IOs Vital Signs Date Time Temp Pulse Resp B/P Pulse Ox O2 Delivery O2 Flow Rate FiO2 07/29/16 06:41 98.2 101 18 128/77 98 Assessment & Plan Problem List: (1) Schizophrenia ICD Code: F20.9 (2) Alcohol withdrawal delirium ICD Code: F10.231 Assessment & Plan Estimated LOS: 3 days continuing to titrate Seroquel to adequate therapeutic dose. Justification for Cont. Inpt. Unable to care for himself and still psychotic. Problem Qualifiers (1) Schizophrenia: Qualified Code: F20.0 - Paranoid schizophrenia Omar Mcleod MD Jul 29, 2016 10:04
[2016-07-29] MEDS: ACETAMINOPHEN 325 MG TAB PO PRN (12:24)
--- NOTE | 2016-07-29 14:38 | HHI.PR ---
Subjective Remarks Follow-up visit alcohol abuse, COPD, hematuria secondary to Bowman catheter self removed 07/24/16. Patient seen today. Reports he continues to have some blood occasionally with clots with urinating. States burning sensation is still present upon urination. Denies fevers, chills, nausea, vomiting, diarrhea. Denies abdominal pain, abdominal cramping. Denies chest pain, palpitations, dizziness, headaches. Objective Vitals Vital Signs Date Time Temp Pulse Resp B/P Pulse Ox O2 Delivery O2 Flow Rate FiO2 07/29/16 06:41 98.2 101 18 128/77 98 07/28/16 17:02 98.2 89 18 122/77 97 Result Diagram: 07/29/16 0718 07/27/16 0702 Objective Remarks GENERAL: This is a well-nourished, well-developed patient, in no apparent distress. HEENT: Normocephalic. Pupils equal round and reactive. Nose without bleeding. Airway patent. NECK: Trachea midline. No JVD. Supple. CARDIOVASCULAR: Regular rate and rhythm without murmurs, gallops, or rubs. RESPIRATORY: Clear to auscultation. Breath sounds equal bilaterally. No wheezes , rales, or rhonchi. GASTROINTESTINAL: Abdomen soft, non-tender, nondistended. Bowel Sounds normoactive x4. MUSCULOSKELETAL: Extremities without clubbing, cyanosis, or edema. NEUROLOGICAL: Awake and alert. No focal neuro deficit. PATEL. Normal speech. A/P Problem List: (1) Schizophrenia ICD Code: F20.9 Status: Acute (2) Alcohol withdrawal delirium ICD Code: F10.231 Status: Acute (3) Hematuria, unspecified ICD Code: R31.9 Status: Acute Assessment and Plan This is a 51-year-old male patient with past medical history which includes schizophrenia, alcohol abuse, COPD, hepatitis C, liver cirrhosis. Patient is currently admitted inpatient psychiatric center and we have been consulted for hematuria after traumatic Bowman removal. Patient had recent hospitalization from 07/13/2016 and discharged 07/26/2016. During agents hospital stay he was treated for EtOH withdrawal, briefly intubated after choking on hamburger extubated same day. During his stay patient had a Bowman catheter placed which he self removed on 07/24/2016. Patient reports initially he had gross hematuria which had resolved until last night he began to have hematuria again this time with burning upon urination. Patient reports he has a good urine stream and flow there is just burning present along with blood. Hematuria after traumatic Bowman removal Discussed with patient as well as nursing- Encourage large amounts of by mouth hydration, patient is only drinking one pitcher per day. If hematuria continues recommend consult to urology Repeat CBC tomorrow Dysuria- UA C&S if indicated ordered await results - UA light red colored, large occult blood, trace leukoesterase, urine WBC 7 , urine bacteria rare, culture not indicated - Needs fluid hydration. Azo for dysuria. Hypokalemia potassium 3.2 Magnesium 2.1- 07/25/2016 Replace with 40 meq potassium chloride Schizophrenia, EtOH abuse- management per psychiatric team Alcohol abuse patient counseled encouraged to abstain Hepatitis C with liver cirrhosis- recommend patient follow-up with outpatient GI /industrial electrical technician after discharge DVT prophylaxis- patient ambulatory low risk Discussed with patient as well as nursing Written by Karlo Verdugo, acting as scribe for Dr. Dunlap on 07/29/16 at 14: 38. All or portions of this note were transcribed by scribe [ISAMAR Carvajal] . I, Dr. Kvng Dunlap personally performed the history, physical exam, and medical decision making; and confirmed the accuracy of the information in the transcribed note. Authenticated by Dr. Kvng Dunlap on 07/29/16 at 15:43. Problem Qualifiers (1) Schizophrenia: Qualified Code: F20.0 - Paranoid schizophrenia Karlo Washington Jul 29, 2016 14:38 Kvng Dunlap MD Jul 29, 2016 15:43
[2016-07-29] MEDS: PHENAZOPYRIDINE HCL 200 MG TAB PO SCH ×2 (15:26→21:52)
[2016-07-29 17:59] VITALS: BP 116/66; PULSE 84; RESP 16; TEMP 98.6; O2SAT 99
[2016-07-29] MEDS: MIRTAZAPINE 15 MG TAB PO SCH (20:52)
[2016-07-30] MEDS: LORazepam 1 MG TAB PO PRN ×2 (04:20→13:36)
[2016-07-30] MEDS: ACETAMINOPHEN 325 MG TAB PO PRN ×2 (04:20→13:35)
[2016-07-30] MEDS: PHENAZOPYRIDINE HCL 200 MG TAB PO SCH ×3 (05:22→21:35)
[2016-07-30 06:02] VITALS: BP 106/68; PULSE 89; RESP 18; TEMP 98.7; O2SAT 96
[2016-07-30] MEDS: NALTREXONE HCL 50 MG TAB PO SCH (09:00)
[2016-07-30] MEDS: QUEtiapine FUMARATE 100 MG TAB PO SCH (09:00)
[2016-07-30] MEDS: clonazePAM 0.5 MG TAB PO SCH ×2 (09:13→20:56)
--- NOTE | 2016-07-30 13:06 | HHI.PYPN ---
Subjective Remarks Patient continues to be easily agitated and paranoid. He would like his medications changed and this physician is willing to accommodate him in order to assist with compliance and rapport. Review of Systems ROS Limitations: Clinical Condition Objective Alert: Yes [place]: Person, Place, Date, Situation Mood: Agitated, Calm Affect: Labile Memory Intact: Immediate, Recent, Remote Hallucinations: Auditory Delusions: Yes Delusion Type: Paranoid, Other Suicidal: Ideation Homicidal: Ideation Insight/Judgement Impaired. Vitals/IOs Vital Signs Date Time Temp Pulse Resp B/P Pulse Ox O2 Delivery O2 Flow Rate FiO2 07/30/16 06:02 98.7 89 18 106/68 96 Assessment & Plan Problem List: (1) Schizophrenia ICD Code: F20.9 (2) Alcohol withdrawal delirium ICD Code: F10.231 Assessment & Plan Estimated LOS: 3 days will adjust patient's Seroquel, trazodone, Remeron and clonazepam as requested by the patient. It is hoped that with continued compliance, the patient's paranoia and agitation will diminish. Justification for Cont. Inpt. Patient is psychotic and unable to contract for safety. Problem Qualifiers (1) Schizophrenia: Qualified Code: F20.0 - Paranoid schizophrenia Omar Mcleod MD Jul 30, 2016 13:06
[2016-07-30] MEDS ORDERED: QUEtiapine FUMARATE 25 MG TAB PO PRN (13:15)
[2016-07-30 17:19] VITALS: BP 132/73; PULSE 88; RESP 16; TEMP 99.1; O2SAT 96
[2016-07-30] MEDS ORDERED: QUEtiapine FUMARATE 100 MG TAB PO SCH (21:00)
[2016-07-30] MEDS ORDERED: traZODone HCL 100 MG TAB PO SCH (21:00)
[2016-07-30] MEDS ORDERED: MIRTAZAPINE 15 MG TAB PO SCH (21:00)
[2016-07-31] MEDS: PHENAZOPYRIDINE HCL 200 MG TAB PO SCH ×2 (05:27→14:22)
[2016-07-31] MEDS: ACETAMINOPHEN 325 MG TAB PO PRN ×2 (05:27→09:13)
[2016-07-31] MEDS: LORazepam 1 MG TAB PO PRN (05:28)
[2016-07-31 07:38] LABS: HEMATOCRIT 40.3 % (39.0-51.0); MEAN CELL VOLUME 88.1 FL (80.0-100.0); MEAN CORPUSCULAR HEMOGLOBIN 28.5 PG (27.0-34.0); MEAN CORPUSCULAR HGB CONC 32.3 % (32.0-36.0); PLATELET COUNT 155 TH/MM3 (150-450); RED BLOOD COUNT 4.58 MIL/MM3 (4.50-5.90); REVIEW FLAG FINAL; WHITE BLOOD COUNT 7.7 TH/MM3 (4.0-11.0)
[2016-07-31 07:50] LABS: BICARBONATE 31.4 MEQ/L (21.0-32.0); POTASSIUM 3.8 MEQ/L (3.5-5.1)
[2016-07-31] MEDS: NALTREXONE HCL 50 MG TAB PO SCH ×2 (09:00→09:14)
[2016-07-31] MEDS: clonazePAM 0.5 MG TAB PO SCH (09:13)
[2016-07-31] MEDS ORDERED: TRAZ50TA12 PO (09:27)
[2016-07-31] MEDS ORDERED: MIRTA15 PO (09:27)
[2016-07-31] MEDS ORDERED: QUET1TAB8 PO (09:27)
[2016-07-31] MEDS ORDERED: NALT50TA3 PO (09:27)
[2016-07-31] MEDS ORDERED: QUET1TAB7 PO (09:27)
[2016-07-31] MEDS ORDERED: PHEN-430 PO (09:27)
[2016-07-31] MEDS ORDERED: CLON.5 PO (09:27)
[2016-07-31] MEDS ORDERED: ARIP1TAB11 PO (09:27)
--- NOTE | 2016-07-31 11:18 | HHI.DS ---
Psychiatry Discharge Summary Inpatient Psychiatric care?: Yes Advance Directive: No Reason Not Provided: Due to Patient Condition Mental Health AdvanceDirective: No Health Care Proxy: No Admission Admission Date Jul 26, 2016 at 13:20 Admission Diagnosis: (1) Schizophrenia ICD Code: F20.9 Brief History The patient is a 51-year-old man, domicile with his mother, unemployed , on disability, with psychiatric history of schizophrenia not active psychiatric treatment, alcohol use disorder, multiple psychiatric hospitalizations, 1 previous suicidal attempts, unknown for the service, medical history of COPD, hepatitis C, liver cirrhosis, presents under [facility] for auditory and visual hallucinations. He was initially admitted to [facility], however now in alcohol withdrawal with vomiting, tremors, and therefore admitted to medicine team. Per the [employer] act, the patient's mother called 911 because the patient was hallucinating, hearing voices that people were out to kill him, drinking alcohol excessively, he was then admitted in the medical floor and he was seen by me initially there. The patient admits to hearing voices for many years, usually voices calling his name, at times his voice is currently commanding type, but not at this moment. On this evaluation right now patient is calm, cooperative, requesting to be helped with his auditory hallucinations, but also with his alcohol addiction. Patient states that he just moved to [place] from [place] 6 days ago to live with his mother. He has been drinking alcohol every day, he states he drinks everything he can, wine , vodka and whisky. He denies the use of other drugs, he says that he stopped using drugs many years ago. Patient says that he has been hearing voices for many years, but in the last week voices have increased in frequency, intensity and severity. Patient reports feeling paranoid when he walks on the street around there are people around him. He says that in the past he has been stable and Seroquel 500 mg at bedtime for these voices, Remeron 45 mg to help with sleep and depression, acamprosate 333 mg 3 times a day, clonazepam 1 mg 3 times a da, but he stopped this medications months ago. At this Moment the patient denies suicidal ideation, patient says that he is actually motivated to get better. Patient is fully oriented 3, no attention deficit, fluctuation of consciousness, gross cognitive impairment observed. Patient reports sweating and anxiety due to alcohol craving, but denies tremor an involuntary movements. Patient is willing to sign voluntary admission. Tobacco Use In Past 30 Days: No Tobacco Past 30 Days Alcohol Use: 4 or More Times Per Week Hospital Course Patient was re-stabilized on his multiple psychotropic medications, which have reportedly worked for him in the past. He participated actively in individual and group therapies. No procedures were performed. Results Blood Pressure 132 / 73 Vital Signs Date Time Temp Pulse Resp B/P Pulse Ox O2 Delivery O2 Flow Rate FiO2 07/30/16 17:19 99.1 88 16 132/73 96 Laboratory Tests Test 07/28/16 07/29/16 07/31/16 13:38 07:18 06:50 Urine Color LIGHT-RED (YELLW/STRAW) Urine Turbidity HAZY (CLEAR) Urine Occult Blood LARGE (NEG) Urine Leukocyte Esterase TRACE (NEG) Urine WBC 7 /hpf (0-5) Urine Bacteria RARE /hpf (NONE) White Blood Count 11.5 TH/MM3 (4.0-11.0) Red Cell Distribution Width 17.7 % 18.0 % (11.6-17.2) (11.6-17.2) Neutrophils (%) (Auto) 78.5 % (16.0-70.0) Neutrophils # (Auto) 9.0 TH/MM3 (1.8-7.7) Laboratory Results Test 07/27/16 07:02 Hemoglobin A1c 4.5 % (4.3-6.0) Triglycerides Level 45 MG/DL (42-150) Cholesterol Level 112 MG/DL (120-200) LDL Cholesterol 55 MG/DL (0-99) HDL Cholesterol 48.1 MG/DL (40.0-60.0) Summary of Major Lab Results None Summary of Procedures None Pending results at discharge: No Medications # of Antipsychotic meds at D/C: 1 Appropriate >1 Antipsych meds?: 1 Approp Antipsych med options 1 - Minimum of three failed multiple trials of monotherapy. 2 - Documented plan to taper to monotherapy due to previous use of multiple meds OR cross-taper in progress at D/C. 3 - Documentation of augmentation of Clozapine. 4 - Justification other than those listed in allowable values 1-3, document here : Discharge Discharge Date: Jul 31, 2016 Discharge Diagnosis: (1) Schizophrenia Diagnosis: Principal ICD Code: F20.9 Mental Status Exam at Disch No hallucinations, no delusions and organized thinking intact. Cognition intact. Verbally contracts for safety. No suicidal or homicidal ideation, plan or intention. Pt Condition on Discharge: Stable Discharge Disposition: Discharge Home Discharge Instructions Diet Instructions: As Tolerated, No Restrictions Activities you can perform: Regular-No Restrictions Discharge Time <= 30 minutes Discharge/Advance Care Plan Health Problems: (1) Schizophrenia (2) Alcohol withdrawal delirium Goals to promote your health * To prevent worsening of your condition and complications * To maintain your health at the optimal level Directions to meet your goals Take your medications as prescribed Follow your dietary instruction Follow activity as directed Keep your appointments as scheduled Take your immunizations and boosters as scheduled If your symptoms worsen call your PCP, if no PCP go to Urgent Care Center or Emergency Room For 24/11 questions related to your inpatient stay or results of tests pending at discharge, please contact Dr. Omar Mcleod at Smoking is Dangerous to Your Health. Avoid second hand smoking Problem Qualifiers (1) Schizophrenia: Qualified Code: F20.0 - Paranoid schizophrenia Omar Mcleod MD Jul 31, 2016 11:18
[2016-07-31] MEDS ORDERED: PYRI200T4 PO (13:19)
[2016-07-31] MEDS ORDERED: FLUT1SPR5 EACH NARE (13:19)
--- NOTE | 2016-07-31 13:19 | HHI.PR ---
Subjective Remarks Follow-up visit alcohol abuse, COPD, hematuria secondary to Bowman catheter self removed 07/24/16. Patient seen today. Reports intermittent dysuria but improved with medication. Requesting antiallergy medication for his seasonal allergies. Denies fevers, chills, nausea, vomiting, diarrhea. Denies abdominal pain, abdominal cramping. Denies chest pain, palpitations, dizziness , headaches. Patient is to be discharged today. Objective Vitals Vital Signs Date Time Temp Pulse Resp B/P Pulse Ox O2 Delivery O2 Flow Rate FiO2 07/30/16 17:19 99.1 88 16 132/73 96 I/O 07/30/16 07/30/16 07/30/16 07/31/16 07/31/16 07/31/16 07:00 15:00 23:00 07:00 15:00 23:00 Intake Total 480 ml Balance 480 ml Intake Oral 480 ml Result Diagram: 07/31/16 0650 07/31/16 0650 Objective Remarks GENERAL: This is a well-nourished, well-developed patient, in no apparent distress. HEENT: Normocephalic. Pupils equal round and reactive. Nose without bleeding. Airway patent. NECK: Trachea midline. No JVD. Supple. CARDIOVASCULAR: Regular rate and rhythm without murmurs, gallops, or rubs. RESPIRATORY: Clear to auscultation. Breath sounds equal bilaterally. No wheezes , rales, or rhonchi. GASTROINTESTINAL: Abdomen soft, non-tender, nondistended. Bowel Sounds normoactive x4. MUSCULOSKELETAL: Extremities without clubbing, cyanosis, or edema. NEUROLOGICAL: Awake and alert. No focal neuro deficit. PATEL. Normal speech. A/P Problem List: (1) Schizophrenia ICD Code: F20.9 Status: Acute (2) Alcohol withdrawal delirium ICD Code: F10.231 Status: Acute (3) Hematuria, unspecified ICD Code: R31.9 Status: Acute Assessment and Plan This is a 51-year-old male patient with past medical history which includes schizophrenia, alcohol abuse, COPD, hepatitis C, liver cirrhosis. Patient is currently admitted inpatient psychiatric center and we have been consulted for hematuria after traumatic Bowman removal. Patient had recent hospitalization from 07/13/2016 and discharged 07/26/2016. During agents hospital stay he was treated for EtOH withdrawal, briefly intubated after choking on hamburger extubated same day. During his stay patient had a Bowman catheter placed which he self removed on 07/24/2016. Patient reports initially he had gross hematuria which had resolved until last night he began to have hematuria again this time with burning upon urination. Patient reports he has a good urine stream and flow there is just burning present along with blood. Hematuria after traumatic Bowman removal Discussed with patient as well as nursing- Encourage large amounts of by mouth hydration, patient is only drinking one pitcher per day. If hematuria continues recommend consult to urology Repeat CBC within normal, unremarkable Dysuria- UA C&S if indicated ordered await results - UA light red colored, large occult blood, trace leukoesterase, urine WBC 7 , urine bacteria rare, culture not indicated - Needs fluid hydration. Azo for dysuria. - Will DC with Azo 3 days Hypokalemia potassium 3.2 Magnesium 2.1- 07/25/2016 Replace with 40 meq potassium chloride Schizophrenia, EtOH abuse- management per psychiatric team Alcohol abuse patient counseled encouraged to abstain Hepatitis C with liver cirrhosis- recommend patient follow-up with outpatient GI /director of architecture after discharge Seasonal allergies - Will DC with Flonase twice a day 14 days DVT prophylaxis- patient ambulatory low risk Discussed with patient as well as nursing Stable from Hospitalist standpoint. We will sign off. Reconsult as needed. Written by Karlo Verdugo, acting as scribe for Dr. Dunlap on 07/31/16 at 14: 59. All or portions of this note were transcribed by scribe [Karlo Verdugo]. I, Dr. Kvng Dunlap personally performed the history, physical exam, and medical decision making; and confirmed the accuracy of the information in the transcribed note. Authenticated by Dr. Kvng Dunlap on 07/31/16 at 1500. Problem Qualifiers (1) Schizophrenia: Qualified Code: F20.0 - Paranoid schizophrenia Karlo Washington Jul 31, 2016 13:19 Kvng Dunlap MD Jul 31, 2016 21:00
[2016-08-18] MEDS ORDERED: QUET1TAB7 PO (12:20)
[2016-08-18] MEDS ORDERED: NALT50TA3 PO (12:20)
[2016-08-18] MEDS ORDERED: QUET1TAB8 PO (12:20)
[2016-08-18] MEDS ORDERED: MIRTA15 PO (12:20)
== END 2016-07-31 14:45 | disposition home or self-care (01) | DRG 885 ==
LOC: H260 13:20
PROVIDERS: ADMIT Psychiatry & Neurology Psychiatry; ATTEND Psychiatry & Neurology Psychiatry
DX: F20.0 Paranoid schizophrenia (principal); F10.231 Alcohol dependence with withdrawal delirium; K74.60 Unspecified cirrhosis of liver; J44.9 Chronic obstructive pulmonary disease, unspecified; R31.0 Gross hematuria; T83.098A Other mechanical complication of other urinary catheter, initial encounter; Y84.6 Urinary catheterization as the cause of abnormal reaction of the patient, or of later complication, without mention of misadventure at the time of the procedure; E87.6 Hypokalemia; R30.0 Dysuria; J30.2 Other seasonal allergic rhinitis; Z87.891 Personal history of nicotine dependence; R11.10 Vomiting, unspecified
CPT/HCPCS: 80048; 80061; 81001; 83036; 85025; 85027

== ENCOUNTER 2016-11-11 13:24 | Emergency (ER) | payer MEDICAID ==
[~2016-11-11] VITALS: Ht 162.6 cm; Wt 75.0 kg
[~2016-11-11 13:24] MED LIST changes: +CLON.5 PO; +FLUT1SPR5 EACH NARE; -HYDR50CA PO; +MIRTA15 PO; +NALT50TA3 PO; +QUET1TAB7 PO; -SERO300T PO; -SERT-132 PO
[2016-11-11 13:41] VITALS: BP 145/73; PULSE 113; RESP 16; TEMP 97.3; O2SAT 95
--- NOTE | 2016-11-11 13:57 | PD ---
HPI Chief Complaint: Psychiatric Symptoms Time Seen by Provider: 13:38 Travel History International Travel<30 days: No Contact w/Intl Traveler<30days: No Traveled to known affect area: No History of Present Illness HPI The patient is a 51-year-old male who presents to the emergency department as a Roger act. According to the police affidavit the patient walked into his mother's room holding a cloth and slapping it against his thigh telling his mother that he "needed to protect himself ". The mother apparently told the patient to leave several times, however, he refused to leave. The motorcycle police officer states the patient is diagnosed with schizoaffective disorder and has not been taking his medications. The patient does admit to drinking alcohol today, is unable to quantify the amount of alcohol he drank. He denies any current hallucinations, delusions, suicidal ideation, or homicidal ideation. PFSH Past Medical History Anxiety: Yes Depression: Yes Cancer: No Cardiovascular Problems: No COPD: Yes Endocrine: No GERD: Yes Genitourinary: No Neurologic: Yes Psychiatric: Yes (Pt. has psych hx in other states ) Respiratory: Yes (pneumo) Schizophrenia: Yes Tetanus Vaccination: < 5 Years Past Surgical History Appendectomy: Yes Other Surgery: Yes (appendectomy) Social History Alcohol Use: Yes Tobacco Use: Yes Substance Use: Yes (hx past) Allergies-Medications (Allergen,Severity, Reaction): Coded Allergies: No Known Allergies (Unverified , 11/11/16) Per Lavell at the [facility] - in [place], [place] on [address] [phone]. Reported Meds & Prescriptions Reported Meds & Active Scripts Active Quetiapine (Quetiapine Fumarate) 25 Mg Tab 50 Mg PO DAILY PRN Quetiapine (Quetiapine Fumarate) 100 Mg Tab 400 Mg PO HS Naltrexone (Naltrexone HCl) 50 Mg Tab 50 Mg PO DAILY Mirtazapine 15 Mg Tab 30 Mg PO HS Flonase Nasal Logan (Fluticasone Nasal Logan) 50 Mcg/Act Logan 50 Mcg EACH NARE BID 14 Days Klonopin (Clonazepam) 0.5 Mg Tab 0.5 Mg PO Q12HR Lactulose Liq (Lactulose) 10 Gm/15 Ml Soln 30 Ml PO BID Reported Vitamin B-1 (Thiamine HCl) 100 Mg Tab 100 Mg PO DAILY Albuterol Neb (Albuterol Sulfate) 2.5 Mg/3 Ml Neb 2.5 Mg NEB Q4HR NEB PRN Review of Systems Except as stated in HPI: all other systems reviewed are Neg Cardiovascular: No: Chest Pain or Discomfort Respiratory: No: Shortness of Breath Gastrointestinal: No: Nausea, Vomiting Psychiatric: Positive: Disorder of Thought (schizoaffective disorder), Substance Abuse (alcohol abuse), No: Suicidal Ideations, Homicidal Ideation Physical Exam Narrative GENERAL: Awake, alert, 51-year-old male who appears his stated age and smells of alcohol. SKIN: Focused skin assessment warm/dry. A she has a superficial abrasion over the external left tragus with no active bleeding, there is a dried blood clot noted. HEAD: Atraumatic. Normocephalic. EYES: Pupils equal and round. No scleral icterus. No injection or drainage. ENT: No nasal bleeding or discharge. Poor dentition, breath smells of alcohol. NECK: Trachea midline. No JVD. CARDIOVASCULAR: Regular rate and rhythm. No murmur appreciated. RESPIRATORY: No accessory muscle use. Clear to auscultation. Breath sounds equal bilaterally. GASTROINTESTINAL: Abdomen soft, non-tender, nondistended. No rebound tenderness. MUSCULOSKELETAL: No obvious deformities. No clubbing. No cyanosis. No edema. NEUROLOGICAL: Awake and alert. No obvious cranial nerve deficits. Motor grossly within normal limits. Normal speech. Nonfocal. PSYCHIATRIC: Appears intoxicated. Data Data Last Documented VS Vital Signs Date Time Temp Pulse Resp B/P Pulse Ox O2 Delivery O2 Flow Rate FiO2 11/12/16 07:40 101 19 119/64 95 Room Air 11/11/16 13:41 97.3 Orders Complete Blood Count With Diff (11/11/16 13:52) Comprehensive Metabolic Panel (11/11/16 13:52) Psych Screen (11/11/16 13:52) Alcohol (Ethanol) (11/11/16 13:52) Us Abdomen Liver (11/11/16 ) Lorazepam Inj (Ativan Inj) (11/11/16 16:45) Alcohol Withdrawal Asmt-Ciwa ONCE (11/11/16 18:23) Flumazenil Inj (Romazicon Inj) (11/11/16 18:30) Lorazepam (Ativan) (11/11/16 18:30) Lorazepam Inj (Ativan Inj) (11/11/16 18:30) Lorazepam (Ativan) (11/11/16 18:30) Lorazepam Inj (Ativan Inj) (11/11/16 18:30) Lorazepam Inj (Ativan Inj) (11/11/16 18:30) Lorazepam Inj (Ativan Inj) (11/11/16 18:30) Diet Regular Basic (11/12/16 Breakfast) Labs Laboratory Tests Test 11/11/16 11/11/16 14:40 14:44 Sodium Level 142 MEQ/L Potassium Level 3.8 MEQ/L Chloride Level 104 MEQ/L Carbon Dioxide Level 23.9 MEQ/L Anion Gap 14 MEQ/L Blood Urea Nitrogen 9 MG/DL Creatinine 0.72 MG/DL Estimat Glomerular Filtration 115 ML/MIN Rate Random Glucose 88 MG/DL Calcium Level 9.0 MG/DL Total Bilirubin 3.6 MG/DL Aspartate Amino Transf 251 U/L (AST/SGOT) Alanine Aminotransferase 125 U/L (ALT/SGPT) Alkaline Phosphatase 201 U/L Total Protein 8.9 GM/DL Albumin 4.3 GM/DL Ethyl Alcohol Level 316 MG/DL White Blood Count 6.4 TH/MM3 Red Blood Count 5.64 MIL/MM3 Hemoglobin 15.4 GM/DL Hematocrit 48.2 % Mean Corpuscular Volume 85.5 FL Mean Corpuscular Hemoglobin 27.3 PG Mean Corpuscular Hemoglobin 32.0 % Concent Red Cell Distribution Width 16.7 % Platelet Count 130 TH/MM3 Mean Platelet Volume 9.6 FL Neutrophils (%) (Auto) 63.9 % Lymphocytes (%) (Auto) 23.9 % Monocytes (%) (Auto) 8.1 % Eosinophils (%) (Auto) 3.1 % Basophils (%) (Auto) 1.0 % Neutrophils # (Auto) 4.1 TH/MM3 Lymphocytes # (Auto) 1.5 TH/MM3 Monocytes # (Auto) 0.5 TH/MM3 Eosinophils # (Auto) 0.2 TH/MM3 Basophils # (Auto) 0.1 TH/MM3 CBC Comment DIFF FINAL Differential Comment MDM Medical Decision Making Medical Screen Exam Complete: Yes Emergency Medical Condition: Yes Medical Record Reviewed: Yes Interpretation(s) Last Impressions Liver Ultrasound 11/11/16 0000 Signed Impressions: Service Date/Time: Friday, November 11, 2016 15:58 - CONCLUSION: 1. Hepatomegaly with diffusely heterogeneous hepatic echotexture and subtle nodularity of the liver surface. Findings may reflect early cirrhosis. 2. No sonographic evidence for cholelithiasis or cholecystitis. Bo Suresh MD Laboratory Tests Test 11/11/16 11/11/16 14:40 14:44 Sodium Level 142 MEQ/L Potassium Level 3.8 MEQ/L Chloride Level 104 MEQ/L Carbon Dioxide Level 23.9 MEQ/L Anion Gap 14 MEQ/L Blood Urea Nitrogen 9 MG/DL Creatinine 0.72 MG/DL Estimat Glomerular Filtration 115 ML/MIN Rate Random Glucose 88 MG/DL Calcium Level 9.0 MG/DL Total Bilirubin 3.6 MG/DL Aspartate Amino Transf 251 U/L (AST/SGOT) Alanine Aminotransferase 125 U/L (ALT/SGPT) Alkaline Phosphatase 201 U/L Total Protein 8.9 GM/DL Albumin 4.3 GM/DL Ethyl Alcohol Level 316 MG/DL White Blood Count 6.4 TH/MM3 Red Blood Count 5.64 MIL/MM3 Hemoglobin 15.4 GM/DL Hematocrit 48.2 % Mean Corpuscular Volume 85.5 FL Mean Corpuscular Hemoglobin 27.3 PG Mean Corpuscular Hemoglobin 32.0 % Concent Red Cell Distribution Width 16.7 % Platelet Count 130 TH/MM3 Mean Platelet Volume 9.6 FL Neutrophils (%) (Auto) 63.9 % Lymphocytes (%) (Auto) 23.9 % Monocytes (%) (Auto) 8.1 % Eosinophils (%) (Auto) 3.1 % Basophils (%) (Auto) 1.0 % Neutrophils # (Auto) 4.1 TH/MM3 Lymphocytes # (Auto) 1.5 TH/MM3 Monocytes # (Auto) 0.5 TH/MM3 Eosinophils # (Auto) 0.2 TH/MM3 Basophils # (Auto) 0.1 TH/MM3 CBC Comment DIFF FINAL Differential Comment Differential Diagnosis Differential diagnosis includes schizoaffective disorder, schizophrenia, noncompliance, substance induced mood disorder, alcohol intoxication, abrasion, laceration, hyponatremia. Narrative Course Labs are drawn and sent. Psychiatric evaluation was ordered. The patient's tetanus shot was updated. The patient's alcohol level is elevated at 316. AST and AST are elevated in the 100s, AST more than ALT with elevated bilirubin of 3.6. Most likely this is related to alcoholic hepatitis, however, ultrasound was ordered. The patient will be medically cleared to be evaluated by psychiatry. Diagnosis Primary Impression: Alcohol abuse Additional Impressions: Schizophrenia Qualified Code: F20.9 - Schizophrenia, unspecified type Elevated transaminase level Condition: Stable Ace Sin MD Nov 11, 2016 13:57
[2016-11-11 15:05] LABS: AUTOMATED NEUTROPHIL # 4.1 TH/MM3 (1.8-7.7); BASOPHIL # 0.1 TH/MM3 (0-0.2); EOSINOPHIL # 0.2 TH/MM3 (0-0.4); EOSINOPHIL % 3.1 % (0.0-4.0); HEMATOCRIT 48.2 % (39.0-51.0); HEMO FLAGS DIFF FINAL; LYMPH % 23.9 % (9.0-44.0); LYMPHOCYTE # 1.5 TH/MM3 (1.0-4.8); MEAN CELL VOLUME 85.5 FL (80.0-100.0); MEAN CORPUSCULAR HEMOGLOBIN 27.3 PG (27.0-34.0); MONO % 8.1 % (0.0-8.0); NEUT % 63.9 % (16.0-70.0); PLATELET COUNT 130 TH/MM3 (150-450); RED BLOOD COUNT 5.64 MIL/MM3 (4.50-5.90); RED CELL DISTRIBUTION WIDTH 16.7 % (11.6-17.2); WHITE BLOOD COUNT 6.4 TH/MM3 (4.0-11.0)
[2016-11-11 15:26] LABS: ALT (GPT) 125 U/L (12-78)
[2016-11-11 15:31] LABS: ALKALINE PHOSPHATASE 201 U/L (45-117); ANION GAP 14 MEQ/L (5-15); AST (GOT) 251 U/L (15-37); BICARBONATE 23.9 MEQ/L (21.0-32.0); BLOOD UREA NITROGEN 9 MG/DL (7-18); CHLORIDE 104 MEQ/L (98-107); GLOMERULAR FILTRATION RATE 115 ML/MIN (>89); POTASSIUM 3.8 MEQ/L (3.5-5.1); SODIUM (NA) 142 MEQ/L (136-145); TOTAL BILIRUBIN ADULT 3.6 MG/DL (0.2-1.0)
[2016-11-11 16:30] VITALS: BP 132/77; PULSE 90; RESP 20; O2SAT 97
[2016-11-11] MEDS ORDERED: LORazepam 2 MG/ML VIAL IM ONE (16:45)
--- NOTE | 2016-11-11 17:08 | RADRPT ---
EXAM DATE/TIME: 11/11/2016 15:58 [facility] COMPARISON: No previous studies available for comparison. INDICATIONS : Increased labs. MEDICAL HISTORY : Gastroesophageal reflux disease. COPD. Pneumonia. Schizophrenia. Depression. SURGICAL HISTORY : Appendectomy. ENCOUNTER: Initial ACUITY: 1 day PAIN SCORE: 4/10 LOCATION: Bilateral upper quadrant MEASUREMENTS: LIVER: 18.7 cm length COMMON DUCT: 7 mm RIGHT KIDNEY: 10.7 x 5.8 x 5.7 cm SPLEEN: 11.9 cm length FINDINGS: LIVER: Liver appears diffusely heterogeneous in echotexture and is enlarged measuring up to 19 cm in length. There is several nodularity of the liver surface which may reflect early changes of cirrhosis. No si gnificant intrapelvic ductal dilatation or gross focal mass. COMMON DUCT: No intraluminal mass or stone visualized. GALLBLADDER: Contains no stones, demonstrates no wall thickening or pericholecystic fluid. PANCREAS: Partially visualized due to overlying bowel gas. RIGHT KIDNEY: No hydronephrosis, stone or mass. SPLEEN: No focal lesion. CONCLUSION: 1. Hepatomegaly with diffusely heterogeneous hepatic echotexture and subtle nodularity of the liver s urface. Findings may reflect early cirrhosis. 2. No sonographic evidence for cholelithiasis or cholecystitis. Bo Suresh MD on November 11, 2016 at 17:01 Board Certified Radiologist. This report was verified electronically.
[2016-11-11 18:18] VITALS: BP 131/76; PULSE 110; RESP 18; O2SAT 97
[2016-11-11] MEDS ORDERED: LORazepam 2 MG TAB PO PRN (18:30)
[2016-11-11] MEDS ORDERED: LORazepam 1 MG TAB PO PRN (18:30)
[2016-11-11] MEDS ORDERED: LORazepam 2 MG/ML VIAL IV PUSH PRN ×4 (18:30)
[2016-11-11] MEDS ORDERED: FLUMAZENIL 0.5 MG/5 ML VIAL IV PUSH PRN (18:30)
[2016-11-11 22:32] VITALS: BP 130/72; PULSE 120; RESP 20; O2SAT 97
[2016-11-11 23:25] VITALS: PULSE 102
[2016-11-12 02:13] VITALS: BP 141/63; PULSE 104; RESP 18; O2SAT 96
[2016-11-12 06:10] VITALS: BP 119/64; PULSE 101; RESP 19; O2SAT 95
[2016-11-12 07:40] VITALS: BP 119/64; PULSE 101; RESP 19; O2SAT 95
--- NOTE | 2016-11-12 11:50 | PD.PSY.CON ---
Provisional Diagnosis Admission Date [place] I. Alcohol induced mood disorder, history of schizoaffective disorder, alcohol use disorder [place] II. Unspecified personality disorder, rule out antisocial [place] III. No significant medical history History of Present Illness Service Psychiatry Consult Requested By Primary Care Physician No Primary Care Physician HPI The patient is a 51-year-old man, domicile with mother, unemployed, on SSI, with a psychiatric history of alcohol use disorder, schizophrenia to disorder, multiple psychiatric hospitalizations, suicidal attempts who presents to the emergency department as a Roger act. According to the police affidavit the patient walked into his mother's room holding a cloth and slapping it against his thigh telling his mother that he "needed to protect himself ". The mother apparently told the patient to leave several times, however, he refused to leave. The special police states the patient is diagnosed with schizoaffective disorder and has not been taking his medications. The patient does admit to drinking alcohol yesterday and been drunk, is unable to quantify the amount of alcohol he drank. He denies depression, anxiety, psychosis and sumanth any current hallucinations, delusions, suicidal ideation, or homicidal ideation. He is oriented 3. He denies the use of illicit drugs. He drinks alcohol everyday. Offer detox/rehabilitation, he says that he is not interested. Review of Systems Constitutional: DENIES: Diaphoretic episodes, Fatigue, Fever, Weight gain, Weight loss, Chills, Dizziness, Change in appetite, Night Sweats Endocrine: DENIES: Heat/cold intolerance, Polydipsia, Polyuria, Polyphagia Eyes: DENIES: Blurred vision, Diplopia, Eye inflammation, Eye pain, Vision loss , Photosensitivity, Double Vision Ears, nose, mouth, throat: DENIES: Tinnitus, Hearing loss, Vertigo, Nasal discharge, Oral lesions, Throat pain, Hoarseness, Ear Pain, Running Nose, Epistaxis, Sinus Pain, Toothache, Odynophagia Respiratory: DENIES: Apneas, Cough, Snoring, Wheezing, Hemoptysis, Sputum production, Shortness of breath Cardiovascular: DENIES: Chest pain, Palpitations, Syncope, Dyspnea on Exertion , PND, Lower Extremity Edema, Orthopnea, Claudication Musculoskeletal: DENIES: Joint pain, Muscle aches, Stiffness, Joint Swelling, Back pain, Neck pain Integumentary: DENIES: Abnormal pigmentation, Nail changes, Pruritus, Rash Hematologic/lymphatic: DENIES: Bruising, Lymphadenopathy Immunologic/allergic: DENIES: Eczema, Urticaria Neurologic: DENIES: Abnormal gait, Headache, Localized weakness, Paresthesias, Seizures, Speech Problems, Tremor, Poor Balance Psychiatric: DENIES: Anxiety, Confusion, Mood changes, Depression, Hallucinations, Agitation, Suicidal Ideation, Homicidal Ideation, Delusions Past Family Social History Coded Allergies: No Known Allergies (Unverified , 11/11/16) Per Lavell at the [facility] - in [place], [place] on [address] [phone]. Active Scripts Quetiapine 25 Mg Tab50 Mg PO DAILY PRN (anxiety) #30 TAB Ref 3 Prov:Haja Crane LAUNDRY FOLDER 08/18/16 Quetiapine 100 Mg [id number] Mg PO HS #120 TAB Ref 3 Prov:Haja Crane LAUNDRY FOLDER 08/18/16 Naltrexone 50 Mg Tab50 Mg PO DAILY #30 TAB Ref 3 Prov:Haja Crane LAUNDRY FOLDER 08/18/16 Mirtazapine 15 Mg Tab30 Mg PO HS #30 TAB Ref 3 Prov:Haja Crane LAUNDRY FOLDER 08/18/16 Fluticasone Nasal Bath (Flonase Nasal Bath)50 Mcg/Act Spray50 Mcg EACH NARE BID 14 Days Ref 1 Prov:Karlo Washington LAUNDRY FOLDER 07/31/16 Clonazepam (Klonopin)0.5 Mg Tab0.5 Mg PO Q12HR #60 TAB Prov:Omar Mcleod MD 07/31/16 Lactulose Liq 10 Gm/15 Ml Soln30 Ml PO BID #60 ML Prov:Raymon Marrero MD 07/26/16 Reported Medications Thiamine (Vitamin B-1)100 Mg [id number] Mg PO DAILY 07/13/16 Albuterol Neb 2.5 Mg/3 Ml Neb2.5 Mg NEB Q4HR NEB PRN (SHORTNESS OF BREATH) 07/13/16 Family History He denies family psychiatric history Social History Patient was born and raised in [place], he lives with his mother in [facility] , he is on SSI, unemployed, highest level of education is high school Patient's Strengths (min. 2) Verbal communication Physical Exam A physical exam, no withdrawal symptoms, no tremors, no stiffness, no EPS, no psychomotor retardation or agitation Vital Signs Vital Signs Date Time Temp Pulse Resp B/P Pulse Ox O2 Delivery O2 Flow Rate FiO2 11/12/16 07:40 101 19 119/64 95 Room Air 11/11/16 13:41 97.3 Lab Results Laboratory Tests Test 11/11/16 11/11/16 14:40 14:44 Sodium Level 142 MEQ/L Potassium Level 3.8 MEQ/L Chloride Level 104 MEQ/L Carbon Dioxide Level 23.9 MEQ/L Anion Gap 14 MEQ/L Blood Urea Nitrogen 9 MG/DL Creatinine 0.72 MG/DL Estimat Glomerular Filtration 115 ML/MIN Rate Random Glucose 88 MG/DL Calcium Level 9.0 MG/DL Total Bilirubin 3.6 MG/DL Aspartate Amino Transf 251 U/L (AST/SGOT) Alanine Aminotransferase 125 U/L (ALT/SGPT) Alkaline Phosphatase 201 U/L Total Protein 8.9 GM/DL Albumin 4.3 GM/DL Ethyl Alcohol Level 316 MG/DL White Blood Count 6.4 TH/MM3 Red Blood Count 5.64 MIL/MM3 Hemoglobin 15.4 GM/DL Hematocrit 48.2 % Mean Corpuscular Volume 85.5 FL Mean Corpuscular Hemoglobin 27.3 PG Mean Corpuscular Hemoglobin 32.0 % Concent Red Cell Distribution Width 16.7 % Platelet Count 130 TH/MM3 Mean Platelet Volume 9.6 FL Neutrophils (%) (Auto) 63.9 % Lymphocytes (%) (Auto) 23.9 % Monocytes (%) (Auto) 8.1 % Eosinophils (%) (Auto) 3.1 % Basophils (%) (Auto) 1.0 % Neutrophils # (Auto) 4.1 TH/MM3 Lymphocytes # (Auto) 1.5 TH/MM3 Monocytes # (Auto) 0.5 TH/MM3 Eosinophils # (Auto) 0.2 TH/MM3 Basophils # (Auto) 0.1 TH/MM3 CBC Comment DIFF FINAL Differential Comment Mental Status Examination Appearance man, multiple visible tattoos, good hygiene, [facility], he is calm and cooperative Speech: Unremarkable Thought Process: Logical Thought Content: Unremarkable Hallucination Type: None Suicidal Ideation: No Previous Suicide Attempts: Yes Homicidal Ideation: No Previous Homicide Attempts: No Judgment: WNL Affect: Good Mood: Appropriate Motor Activity: Normal gait Assessment & Plan Problem List: (1) Alcohol-induced mood disorder Assessment & Plan: On psychiatric evaluation today the patient does not present any evidence of subjective or objective depressive symptoms sumanth or psychosis. Patient denies suicidal or homicidal ideation, he denies visual and auditory hallucinations. Patient is logical, coherent and relevant. Clinically sober, oriented by 3. Patient does not meet criteria for psychiatric admission at this moment. Recent episode of aggressive behavior was mother's is to be mostly related with catheter structure and acute alcohol intoxication. Extensive support, motivation psycho education provided. Patient declined detox. Roger act will be lifted. ICD Code: F10.94 Assessment & Plan Estimated LOS: Sim Aguilar MD Nov 12, 2016 11:50
== END 2016-11-12 10:06 | disposition home or self-care (01) ==
LOC: NEPD 13:24 → NEPJ 11-12 10:06
DX: F10.10 Alcohol abuse, uncomplicated (principal); F25.9 Schizoaffective disorder, unspecified; R74.0 Nonspecific elevation of levels of transaminase and lactic acid dehydrogenase [LDH]; Y90.8 Blood alcohol level of 240 mg/100 ml or more; Z79.899 Other long term (current) drug therapy
CPT/HCPCS: 76705; 80053; 80307; 85025; 96372; 99285; J2060

== ENCOUNTER 2017-05-11 15:05 | Emergency (ER) | payer MEDICAID ==
[~2017-05-11] VITALS: Ht 170.2 cm; Wt 60.5 kg
[~2017-05-11 15:05] MED LIST changes: -ACET325T PO; -MULT-142
[2017-05-11 15:06] VITALS: BP 163/94; PULSE 101; RESP 16; TEMP 98.5; O2SAT 97
--- NOTE | 2017-05-11 16:21 | RADRPT ---
EXAM DATE/TIME: 05/11/2017 16:08 [facility] COMPARISON: No previous studies available for comparison. INDICATIONS : Dizziness. Cephalgia. Nausea and vomiting. RADIATION DOSE: 40.46 CTDIvol (mGy) MEDICAL HISTORY : Chronic obstructive pulmonary disease. Schizophrenia. SURGICAL HISTORY : None. ENCOUNTER: Initial ACUITY: 2 days PAIN SCALE: 4/10 LOCATION: cranial TECHNIQUE: Multiple contiguous axial images were obtained of the head. Using automated exposure control and adj ustment of the mA and/or kV according to patient size, radiation dose was kept as low as reasonably a chievable to obtain optimal diagnostic quality images. DICOM format image data is available electro nically for review and comparison. FINDINGS: CEREBRUM: The ventricles are normal for age. No evidence of midline shift, mass lesion, hemorrhage or acute in farction. No extra-axial fluid collections are seen. POSTERIOR FOSSA: The cerebellum and brainstem are intact. The 4th ventricle is midline. The cerebellopontine angle i s unremarkable. EXTRACRANIAL: The visualized portion of the orbits is intact. SKULL: The calvaria is intact. No evidence of skull fracture. CONCLUSION: 1. No acute intracranial abnormalities. Prabhu Mercado MD on May 11, 2017 at 16:19 Board Certified Radiologist. This report was verified electronically.
[2017-05-11 17:47] LABS: AUTOMATED NEUTROPHIL # 4.8 TH/MM3 (1.8-7.7); BASOPHIL % 0.5 % (0.0-2.0); EOSINOPHIL # 0.1 TH/MM3 (0-0.4); EOSINOPHIL % 1.4 % (0.0-4.0); HEMATOCRIT 42.1 % (39.0-51.0); HEMOGLOBIN 14.3 GM/DL (13.0-17.0); LYMPH % 17.4 % (9.0-44.0); LYMPHOCYTE # 1.3 TH/MM3 (1.0-4.8); MEAN CELL VOLUME 90.8 FL (80.0-100.0); MEAN CORPUSCULAR HGB CONC 34.1 % (32.0-36.0); MONO % 15.7 % (0.0-8.0); MONOCYTE # 1.2 TH/MM3 (0-0.9); PLATELET COUNT 65 TH/MM3 (150-450); RED BLOOD COUNT 4.63 MIL/MM3 (4.50-5.90); RED CELL DISTRIBUTION WIDTH 15.9 % (11.6-17.2); WHITE BLOOD COUNT 7.3 TH/MM3 (4.0-11.0)
[2017-05-11 18:19] LABS: ALBUMIN 3.5 GM/DL (3.4-5.0); AST (GOT) 63 U/L (15-37); BICARBONATE 25.5 MEQ/L (21.0-32.0); BLOOD UREA NITROGEN 7 MG/DL (7-18); CALCIUM 8.8 MG/DL (8.5-10.1); CHLORIDE 103 MEQ/L (98-107); CREATININE 0.68 MG/DL (0.60-1.30); GLOMERULAR FILTRATION RATE 122 ML/MIN (>89); GLUCOSE,RANDOM 75 MG/DL (74-106); MAGNESIUM 1.9 MG/DL (1.5-2.5); SODIUM (NA) 138 MEQ/L (136-145)
[2017-05-11 18:20] LABS: ALT (GPT) 38 U/L (12-78)
[2017-05-11 18:24] LABS: ALKALINE PHOSPHATASE 167 U/L (45-117); TOTAL BILIRUBIN ADULT 4.9 MG/DL (0.2-1.0); TOTAL PROTEIN 7.8 GM/DL (6.4-8.2); TROPONIN I LESS THAN 0.02 NG/ML (0.02-0.05)
[2017-05-11 18:26] LABS: INTERNATIONAL NORMALIZED RATIO 1.3 RATIO; PROTHROMBIN TIME - PATIENT 12.8 SEC (9.8-11.6)
[2017-05-11] MEDS ORDERED: POTASSIUM CHLORIDE 20 MEQ CONTROLLED RELEASE TAB PO ONE (20:30)
[2017-05-11] MEDS ORDERED: MECLIZINE HCL 25 MG TAB PO ONE (20:30)
[2017-05-11] MEDS ORDERED: SODIUM CHLOR 0.9% 1000 ML INJ 1,000 ML IV ONE (20:30)
[2017-05-11] MEDS ORDERED: THIAMINE INJ 100 MG in SODIUM CHLORIDE 0.9% INJ 100 ML IV ONE (20:30)
[2017-05-11] MEDS ORDERED: METOCLOPRAMIDE HCL 10 MG/2 ML VIAL IV PUSH ONE (20:30)
--- NOTE | 2017-05-11 20:30 | PD ---
HPI Chief Complaint: Dizziness Time Seen by Provider: 20:15 Travel History International Travel<30 days: No Contact w/Intl Traveler<30days: No Traveled to known affect area: No History of Present Illness HPI 52-year-old male with history of alcoholism here complaining of dizziness. The patient reports that for the last 3 days he feels as though the room is spinning. States that this is worse in the mornings and worse with movements, better with rest and closing his eyes. No paresthesias or motor deficits. No visual disturbances. States that he only drank a small amount of alcohol today. He denies illicit drug use. No fevers or chills. He denies head trauma. Labs and CT head ordered from triage. [facility] Past Medical History Anxiety: Yes Depression: Yes Cancer: No Cardiovascular Problems: No COPD: Yes Endocrine: No GERD: Yes Genitourinary: No Neurologic: Yes Psychiatric: Yes (Pt. has psych hx in other states ) Respiratory: Yes (pneumo) Schizophrenia: Yes Past Surgical History Appendectomy: Yes Other Surgery: Yes (appendectomy) Social History Alcohol Use: Yes Tobacco Use: Yes Substance Use: Yes Allergies-Medications (Allergen,Severity, Reaction): Coded Allergies: acetaminophen (Verified Allergy, Unknown, 05/11/17) propoxyphene (Verified Allergy, Unknown, 05/11/17) Reported Meds & Prescriptions Reported Meds & Active Scripts Active Quetiapine (Quetiapine Fumarate) 25 Mg Tab 50 Mg PO DAILY PRN Quetiapine (Quetiapine Fumarate) 100 Mg Tab 400 Mg PO HS Naltrexone (Naltrexone HCl) 50 Mg Tab 50 Mg PO DAILY Mirtazapine 15 Mg Tab 30 Mg PO HS Flonase Nasal [place] (Fluticasone Nasal [place]) 50 Mcg/Act [place] 50 Mcg EACH NARE BID 14 Days Klonopin (Clonazepam) 0.5 Mg Tab 0.5 Mg PO Q12HR Lactulose Liq (Lactulose) 10 Gm/15 Ml Soln 30 Ml PO BID Reported Vitamin B-1 (Thiamine HCl) 100 Mg Tab 100 Mg PO DAILY Albuterol Neb (Albuterol Sulfate) 2.5 Mg/3 Ml Neb 2.5 Mg NEB Q4HR NEB PRN Review of Systems Except as stated in HPI: all other systems reviewed are Neg Physical Exam Narrative GENERAL: Well-developed, well-nourished, sitting comfortably on chair, no apparent distress. SKIN: Focused skin assessment warm/dry. No rashes. HEAD: Atraumatic. Normocephalic. EYES: Pupils equal and round. Slight horizontal nystagmus. EOMI. Mild bilateral scleral icterus. No injection or drainage. ENT: No nasal bleeding or discharge. Mucous membranes pink and moist. Bilateral tympanic membrane and external auditory canals are normal. NECK: Trachea midline. No JVD. No nuchal rigidity. CARDIOVASCULAR: Regular rate and rhythm. RESPIRATORY: No accessory muscle use. Clear to auscultation. Breath sounds equal bilaterally. GASTROINTESTINAL: Abdomen soft, non-tender, nondistended. MUSCULOSKELETAL: No obvious deformities. No clubbing. No cyanosis. No edema. NEUROLOGICAL: Awake and alert. No obvious cranial nerve deficits. Motor grossly within normal limits. Normal speech. PSYCHIATRIC: Appropriate mood and affect; insight and judgment normal. Data Data Last Documented VS Vital Signs Date Time Temp Pulse Resp B/P (MAP) Pulse Ox O2 Delivery O2 Flow Rate FiO2 05/11/17 15:06 98.5 101 16 163/94 (117) 97 Orders Orders Electrocardiogram (05/11/17 15:37) Complete Blood Count With Diff (05/11/17 15:37) Comprehensive Metabolic Panel (05/11/17 15:37) Magnesium (Mg) (05/11/17 15:37) Ckmb (Isoenzyme) Profile (05/11/17 15:37) Troponin I (05/11/17 15:37) Act Partial Throm Time (Ptt) (05/11/17 15:37) Prothrombin Time / Inr (Pt) (05/11/17 15:37) Ct Brain W/O Iv Contrast(Rout) (05/11/17 15:37) Alcohol (Ethanol) (05/11/17 15:37) CKMB (05/11/17 17:12) CKMB% (05/11/17 17:12) Sodium Chlor 0.9% 1000 Ml Inj (Ns 1000 M (05/11/17 20:30) Meclizine (Antivert) (05/11/17 20:30) Metoclopramide Inj (Reglan Inj) (05/11/17 20:30) Potassium Chloride (Kcl) (05/11/17 20:30) Thiamine Inj (Thiamine Inj) (05/11/17 20:30) Ammonia (05/11/17 21:09) Labs Laboratory Tests Test 05/11/17 17:12 05/11/17 21:28 White Blood Count 7.3 TH/MM3 Red Blood Count 4.63 MIL/MM3 Hemoglobin 14.3 GM/DL Hematocrit 42.1 % Mean Corpuscular Volume 90.8 FL Mean Corpuscular Hemoglobin 31.0 PG Mean Corpuscular Hemoglobin Concent 34.1 % Red Cell Distribution Width 15.9 % Platelet Count 65 TH/MM3 Mean Platelet Volume 9.0 FL Neutrophils (%) (Auto) 65.0 % Lymphocytes (%) (Auto) 17.4 % Monocytes (%) (Auto) 15.7 % Eosinophils (%) (Auto) 1.4 % Basophils (%) (Auto) 0.5 % Neutrophils # (Auto) 4.8 TH/MM3 Lymphocytes # (Auto) 1.3 TH/MM3 Monocytes # (Auto) 1.2 TH/MM3 Eosinophils # (Auto) 0.1 TH/MM3 Basophils # (Auto) 0.0 TH/MM3 CBC Comment AUTO DIFF Differential Comment AUTO DIFF CONFIRMED Platelet Estimate LOW Platelet Morphology Comment NORMAL Prothrombin Time 12.8 SEC Prothromb Time International Ratio 1.3 RATIO Activated Partial Thromboplast Time 31.1 SEC Blood Urea Nitrogen 7 MG/DL Creatinine 0.68 MG/DL Random Glucose 75 MG/DL Total Protein 7.8 GM/DL Albumin 3.5 GM/DL Calcium Level 8.8 MG/DL Magnesium Level 1.9 MG/DL Alkaline Phosphatase 167 U/L Aspartate Amino Transf (AST/SGOT) 63 U/L Alanine Aminotransferase (ALT/SGPT) 38 U/L Total Bilirubin 4.9 MG/DL Sodium Level 138 MEQ/L Potassium Level 3.1 MEQ/L Chloride Level 103 MEQ/L Carbon Dioxide Level 25.5 MEQ/L Anion Gap 10 MEQ/L Estimat Glomerular Filtration Rate 122 ML/MIN Total Creatine Kinase 133 U/L Creatine Kinase MB 1.2 NG/ML Troponin I LESS THAN 0.02 NG/ML Ethyl Alcohol Level 45 MG/DL Ammonia 30 MCMOL/L [facility] Medical Decision Making Medical Screen Exam Complete: Yes Emergency Medical Condition: Yes Medical Record Reviewed: Yes Interpretation(s) EKG: Sinus, rate 88, normal axis, normal intervals, no acute ischemic abnormality. Differential Diagnosis Vertigo, intracranial abnormality, metabolic abnormality, alcohol intoxication, alcohol withdrawal Narrative Course Vital signs reviewed. CBC is remarkable for platelet 65. The patient has had a slight thrombocytopenia in the past for this is likely secondary to alcoholism. CMP is remarkable for potassium 3.1 which was replaced orally, T bili 4.9 (T bili was 3.6 in November of last year) Cardiac enzymes are negative. Alcohol level is 45. Ammonia level is 30. CT head: No acute intracranial abnormality. Patient was given a liter of normal saline IV, IV Reglan, and oral meclizine, and on reassessment he states his dizziness has resolved. He was made aware of all findings, and his laboratory findings are likely secondary to chronic alcohol use. He tells me that he has cut down significantly on the amount of alcohol consumption and states that he drinks about 2 beers daily. He does not have a primary care physician. I will give him the information to the [facility] to follow-up with. I will also given the information to [facility] if he would like help with detox. I believe his symptoms are more likely secondary to a peripheral/benign vertigo. He was advised on when to return to the emergency department. He verbalizes understanding and agreement with plan. Diagnosis Primary Impression: Vertigo Additional Impression: Thrombocytopenia Referrals: [facility] 3 days [facility] 3 days Additional Instructions: Follow-up with a primary care physician this week. Return to the emergency department for worsening symptoms or any other concerns. Scripts Meclizine (Meclizine) 25 Mg Tab 25 MG PO TID Y for VERTIGO, #20 TAB 0 Refills Prov: Mayo Slade MD 05/11/17 Disposition: 01 DISCHARGE HOME Condition: Stable Mayo Slade MD May 11, 2017 20:30
[2017-05-11] MEDS ORDERED: MECL-62 PO (22:29)
--- NOTE | 2017-05-12 14:01 | EKG ---
Date Performed: 05/11/2017 Time Performed: 17:09:03 PTAGE: 52 years EKG: Sinus rhythm NONSPECIFIC T-WAVE ABNORMALITY BORDERLINE ECG NO PREVIOUS TRACING DOCTOR: Michele Cedeño Interpretating Date/Time 05/12/2017 13:59:56
== END 2017-05-11 22:44 | disposition home or self-care (01) ==
LOC: NEPD 15:05
DX: R42 Dizziness and giddiness (principal); D69.6 Thrombocytopenia, unspecified; F10.20 Alcohol dependence, uncomplicated; R94.31 Abnormal electrocardiogram [ECG] [EKG]; F41.9 Anxiety disorder, unspecified; J44.9 Chronic obstructive pulmonary disease, unspecified; K21.9 Gastro-esophageal reflux disease without esophagitis; F20.9 Schizophrenia, unspecified; Z72.0 Tobacco use
CPT/HCPCS: 70450; 80053; 80307; 82140; 82550; 82552; 83735; 84484; 85025; 85610; 85730; 93005; 96365; 96375; 99285; J2765; J3411; J7030

== ENCOUNTER 2017-07-06 22:55 | Emergency (ER) | payer MEDICAID ==
[~2017-07-06] VITALS: Ht 170.2 cm; Wt 76.1 kg
[~2017-07-06 22:55] MED LIST changes: +MECL-62 PO
[2017-07-06 23:00] VITALS: BP 126/68; PULSE 75; RESP 20; TEMP 97.4; O2SAT 97
[2017-07-07 00:56] LABS: BILIRUBIN, URINE NEG (NEG); BLOOD, URINE NEG (NEG); GLUCOSE,URINE NEG (NEG); KETONE, URINE NEG (NEG); NITRITE,URINE NEG (NEG); PH, URINE 5.5 (5.0-8.5); URINE COLOR YELLOW (YELLW/STRAW); URINE LEUKOCYTE ESTERASE NEG (NEG)
[2017-07-07 00:57] LABS: BASOPHIL # 0.2 TH/MM3 (0-0.2); BASOPHIL % 2.9 % (0.0-2.0); EOSINOPHIL # 0.2 TH/MM3 (0-0.4); EOSINOPHIL % 2.7 % (0.0-4.0); HEMOGLOBIN 14.5 GM/DL (13.0-17.0); LYMPH % 23.4 % (9.0-44.0); LYMPHOCYTE # 1.6 TH/MM3 (1.0-4.8); MEAN CELL VOLUME 90.4 FL (80.0-100.0); MEAN CORPUSCULAR HEMOGLOBIN 31.2 PG (27.0-34.0); MEAN CORPUSCULAR HGB CONC 34.5 % (32.0-36.0); MEAN PLATELET VOLUME 8.9 FL (7.0-11.0); MONOCYTE # 0.9 TH/MM3 (0-0.9); PLATELET COUNT 60 TH/MM3 (150-450); RED BLOOD COUNT 4.64 MIL/MM3 (4.50-5.90); RED CELL DISTRIBUTION WIDTH 16.1 % (11.6-17.2); WHITE BLOOD COUNT 6.9 TH/MM3 (4.0-11.0)
[2017-07-07 01:03] LABS: SQUAMOUS EPITHELIAL CELL URINE 0-5 /hpf (0-5)
[2017-07-07 01:04] LABS: WBC, URINE 0-2 /hpf (0-5)
[2017-07-07 01:08] LABS: CHLORIDE 100 MEQ/L (98-107); SODIUM (NA) 135 MEQ/L (136-145)
[2017-07-07 01:11] LABS: CALCIUM 8.3 MG/DL (8.5-10.1)
[2017-07-07 01:12] LABS: ALBUMIN 3.7 GM/DL (3.4-5.0); BICARBONATE 26.8 MEQ/L (21.0-32.0); BLOOD UREA NITROGEN 6 MG/DL (7-18); GLUCOSE,RANDOM 81 MG/DL (74-106); MAGNESIUM 1.9 MG/DL (1.5-2.5)
[2017-07-07 01:15] LABS: ALT (GPT) 132 U/L (12-78); AST (GOT) 255 U/L (15-37); CREATININE 0.65 MG/DL (0.60-1.30); GLOMERULAR FILTRATION RATE 129 ML/MIN (>89)
[2017-07-07 01:16] LABS: TOTAL BILIRUBIN ADULT 3.6 MG/DL (0.2-1.0); TOTAL PROTEIN 8.4 GM/DL (6.4-8.2)
[2017-07-07 01:18] LABS: ALKALINE PHOSPHATASE 234 U/L (45-117)
[2017-07-07] MEDS ORDERED: LORazepam 2 MG/ML VIAL IV PUSH ONE (02:30)
[2017-07-07 02:35] VITALS: PULSE 74; RESP 16; O2SAT 95
[2017-07-07] MEDS ORDERED: IOHEXOL 350 MG/ML 10 ML VIAL (for RAD DIAG) IVCONTRAST ONE (02:50)
--- NOTE | 2017-07-07 03:07 | RADRPT ---
EXAM DATE/TIME: 07/07/2017 02:36 [place] COMPARISON: No previous studies available for comparison. INDICATIONS : Abdominal pain. IV CONTRAST: 100 cc Omnipaque 350 (iohexol) IV ORAL CONTRAST: No oral contrast ingested. RADIATION DOSE: 14.20 CTDIvol (mGy) MEDICAL HISTORY : Chronic obstructive pulmonary disease. SURGICAL HISTORY : Appendectomy. ENCOUNTER: Initial ACUITY: 1 day PAIN SCALE: 7/10 LOCATION: Bilateral upper quadrant lower quadrant TECHNIQUE: Volumetric scanning of the abdomen and pelvis was performed. Using automated exposure control and ad justment of the mA and/or kV according to patient size, radiation dose was kept as low as reasonably achievable to obtain optimal diagnostic quality images. DICOM format image data is available electro nically for review and comparison. FINDINGS: LOWER LUNGS: The visualized lower lungs are clear. LIVER: The liver is enlarged measuring 20.1 cm in length and demonstrates heterogeneous density with likely steatosis. There is a nodular contour with mild central atrophy. There is no dilation of the biliary tree. No calcified gallstones. SPLEEN: Enlarged measuring 14 cm in length. There are punctate calcifications within the spleen. PANCREAS: Within normal limits. KIDNEYS: Normal in size and shape. There is no mass, stone or hydronephrosis. ADRENAL GLANDS: Within normal limits. VASCULAR: There is no aortic aneurysm. There is a recannulized paraumbilical vein and small collateral vessels in the abdomen. BOWEL/MESENTERY: The stomach, small bowel, and colon demonstrate no acute abnormality. There is no free intraperitone al air. There is trace free fluid. ABDOMINAL WALL: Within normal limits. RETROPERITONEUM: There is no lymphadenopathy. BLADDER: No wall thickening or mass. REPRODUCTIVE: Within normal limits. INGUINAL: There is no lymphadenopathy or hernia. MUSCULOSKELETAL: No acute abnormality. CONCLUSION: 1. No acute finding is identified to explain abdominal pain. 2. Hepatomegaly with likely steatosis and features diagnostic of cirrhosis. No definite liver lesion is seen. There are also features related to portal hypertension including a recannulized paraumbilica l vein and splenomegaly. Arley Hopson MD on July 07, 2017 at 3:01 Board Certified Radiologist. This report was verified electronically.
--- NOTE | 2017-07-07 03:13 | PD ---
HPI Chief Complaint: Alcohol/Drug Intoxication Time Seen by Provider: 00:32 Travel History International Travel<30 days: No Contact w/Intl Traveler<30days: No Traveled to known affect area: No History of Present Illness HPI 52-year-old male presents to the emergency department by EMS transport for evaluation of alcoholism and seeking detox program. Patient reports that he drinks alcohol daily and has been drinking alcohol a day. Patient reports just prior to arrival to the emergency department he drank a beer. Patient states the reason he decided to come to the emergency department tonight was he awakened and found himself behind shrubs/bushes and realized that he needed to have a bowel movement so instead of going to a gas station or another destination with the bathroom he just decided to urinate and have a bowel movement behind shrubbery and use leaves to clean his body. Patient states he thinks that he did urinate on his closing did not completely clean himself after defecating. Patient states at that point he decided that he needed to seek help so that he could go through an alcohol detox process. Patient states that he is fearful of entering into a detox program however as he is afraid he will go into alcohol withdrawal prior to entering into a detox program. Patient presents at this time for evaluation. Patient has history of bipolar disorder and schizophrenia and states that he is prescribed medications but does not take them. Patient does not report any current visual or auditory hallucinations. No tremor or nausea or vomiting. Patient states he has chronic upper abdominal pain and has diagnosis of alcohol hepatitis and hepatitis C. Patient does not report any hematemesis coffee-ground emesis melena or hematochezia. Patient also has prior history of depression and suicidal ideation but does not report any active depression or hopelessness at this time does not report any suicidal ideation at this time denies being suicidal or homicidal. Patient is here voluntarily. PFSH Past Medical History Narrative Medical Anxiety depression schizophrenia cirrhosis hepatitis C COPD; daily alcohol use a case of beer, tobacco use, prior substance use no methadone since 2017; nursing notes reviewed Anxiety: Yes Depression: Yes Cancer: No Cardiovascular Problems: No Cirrhosis: Yes COPD: Yes Endocrine: No GERD: Yes Genitourinary: No Hepatitis: Yes Neurologic: Yes Psychiatric: Yes (Pt. has psych hx in other states ) Respiratory: Yes Pneumonia: Yes Schizophrenia: Yes Tetanus Vaccination: > 5 Years Influenza Vaccination: Yes Past Surgical History Appendectomy: Yes Other Surgery: Yes (appendectomy) Social History Alcohol Use: Yes (STATED: 07/07/17 "CASE OF BEER A DAY AND TWO 99 BANANAS PROOF NIPS") Tobacco Use: Yes (05/07 PPD) Substance Use: Yes (HX OF HEROIN, COCAINE, WEED. STATES STOPPED METHADONE: 2017) Allergies-Medications (Allergen,Severity, Reaction): Coded Allergies: acetaminophen (Verified Allergy, Unknown, 07/07/17) propoxyphene (Verified Allergy, Unknown, 07/07/17) Reported Meds & Prescriptions Reported Meds & Active Scripts Active Meclizine (Meclizine HCl) 25 Mg Tab 25 Mg PO TID PRN Quetiapine (Quetiapine Fumarate) 25 Mg Tab 50 Mg PO DAILY PRN Quetiapine (Quetiapine Fumarate) 100 Mg Tab 400 Mg PO HS Naltrexone (Naltrexone HCl) 50 Mg Tab 50 Mg PO DAILY Mirtazapine 15 Mg Tab 30 Mg PO HS Flonase Nasal [place] (Fluticasone Nasal [place]) 50 Mcg/Act [place] 50 Mcg EACH NARE BID 14 Days Klonopin (Clonazepam) 0.5 Mg Tab 0.5 Mg PO Q12HR Lactulose Liq (Lactulose) 10 Gm/15 Ml Soln 30 Ml PO BID Reported Vitamin B-1 (Thiamine HCl) 100 Mg Tab 100 Mg PO DAILY Albuterol Neb (Albuterol Sulfate) 2.5 Mg/3 Ml Neb 2.5 Mg NEB Q4HR NEB PRN Review of Systems Except as stated in HPI: all other systems reviewed are Neg Physical Exam Narrative GENERAL: Well-developed disheveled male in no acute distress no respiratory distress SKIN: Warm and dry. HEAD: Atraumatic. Normocephalic. EYES: Pupils equal and round. No scleral icterus. No injection or drainage. ENT: No nasal bleeding or discharge. Mucous membranes pink and moist. NECK: Trachea midline. No JVD. CARDIOVASCULAR: Regular rate and rhythm. RESPIRATORY: No accessory muscle use. Clear to auscultation. Breath sounds equal bilaterally. GASTROINTESTINAL: Abdomen soft, non-tender, nondistended. Hepatic and splenic margins not palpable. MUSCULOSKELETAL: Extremities without clubbing, cyanosis, or edema. No obvious deformities. NEUROLOGICAL: Awake and alert. No obvious cranial nerve deficits. Motor grossly within normal limits. Five out of 5 muscle strength in the arms and legs. No tremor. Normal speech. PSYCHIATRIC: Appropriate mood and affect; insight and judgment normal. Data Data Last Documented VS Vital Signs Date Time Temp Pulse Resp B/P (MAP) Pulse Ox O2 Delivery O2 Flow Rate FiO2 07/07/17 03:20 99.1 84 16 126/75 (92) 97 Room Air Orders Orders Complete Blood Count With Diff (07/07/17 00:32) Comprehensive Metabolic Panel (07/07/17 00:32) Urinalysis - C+S If Indicated (07/07/17 00:32) Iv Access Insert/Monitor (07/07/17 00:32) Drug Screen, Random Urine (07/07/17 00:32) Alcohol (Ethanol) (07/07/17 00:32) Magnesium (Mg) (07/07/17 00:32) Lorazepam Inj (Ativan Inj) (07/07/17 02:30) Ct Abd/Pel W Iv Contrast(Rout) (07/07/17 ) Lipase (07/07/17 00:45) Iohexol 350 Inj (Omnipaque 350 Inj) (07/07/17 02:50) Ed Discharge Order (07/07/17 03:59) Labs Laboratory Tests Test 07/07/17 00:40 07/07/17 00:45 Urine Collection Type CLEAN CATCH Urine Color YELLOW Urine Turbidity CLEAR Urine pH 5.5 Urine Specific [place] LESS/EQUAL 1.005 Urine Protein NEG mg/dL Urine Glucose (UA) NEG mg/dL Urine Ketones NEG mg/dL Urine Occult Blood NEG Urine Nitrite NEG Urine Bilirubin NEG Urine Urobilinogen 4.0 MG/DL Urine Leukocyte Esterase NEG Urine WBC 0-2 /hpf Urine Squamous Epithelial Cells 0-5 /hpf Microscopic Urinalysis Comment CULT NOT INDICATED Urine Opiates Screen NEG Urine Barbiturates Screen NEG Urine Amphetamines Screen NEG Urine Benzodiazepines Screen NEG Urine Cocaine Screen NEG Urine Cannabinoids Screen NEG White Blood Count 6.9 TH/MM3 Red Blood Count 4.64 MIL/MM3 Hemoglobin 14.5 GM/DL Hematocrit 42.0 % Mean Corpuscular Volume 90.4 FL Mean Corpuscular Hemoglobin 31.2 PG Mean Corpuscular Hemoglobin Concent 34.5 % Red Cell Distribution Width 16.1 % Platelet Count 60 TH/MM3 Mean Platelet Volume 8.9 FL Neutrophils (%) (Auto) 58.0 % Lymphocytes (%) (Auto) 23.4 % Monocytes (%) (Auto) 13.0 % Eosinophils (%) (Auto) 2.7 % Basophils (%) (Auto) 2.9 % Neutrophils # (Auto) 4.0 TH/MM3 Lymphocytes # (Auto) 1.6 TH/MM3 Monocytes # (Auto) 0.9 TH/MM3 Eosinophils # (Auto) 0.2 TH/MM3 Basophils # (Auto) 0.2 TH/MM3 CBC Comment AUTO DIFF Differential Comment AUTO DIFF CONFIRMED Platelet Estimate NORMAL Platelet Morphology Comment NORMAL Red Cell Morphology Comment NORMAL Blood Urea Nitrogen 6 MG/DL Creatinine 0.65 MG/DL Random Glucose 81 MG/DL Total Protein 8.4 GM/DL Albumin 3.7 GM/DL Calcium Level 8.3 MG/DL Magnesium Level 1.9 MG/DL Alkaline Phosphatase 234 U/L Aspartate Amino Transf (AST/SGOT) 255 U/L Alanine Aminotransferase (ALT/SGPT) 132 U/L Total Bilirubin 3.6 MG/DL Sodium Level 135 MEQ/L Potassium Level 3.8 MEQ/L Chloride Level 100 MEQ/L Carbon Dioxide Level 26.8 MEQ/L Anion Gap 8 MEQ/L Estimat Glomerular Filtration Rate 129 ML/MIN Lipase 584 U/L Ethyl Alcohol Level 117 MG/DL MDM Medical Decision Making Medical Screen Exam Complete: Yes Emergency Medical Condition: Yes Medical Record Reviewed: Yes Interpretation(s) CBC & BMP Diagram 07/07/17 00:45 Total Protein 8.4 H, Albumin 3.7, Calcium Level 8.3 L, Magnesium Level 1.9, Alkaline Phosphatase 234 H, Aspartate Amino Transf (AST/SGOT) 255 H, Alanine Aminotransferase (ALT/SGPT) 132 H, Total Bilirubin 3.6 H Vital Signs Date Time Temp Pulse Resp B/P (MAP) Pulse Ox O2 Delivery O2 Flow Rate FiO2 07/07/17 02:35 74 16 95 Room Air 07/07/17 00:30 74 07/06/17 23:00 97.4 75 20 126/68 (87) 97 Room Air Differential Diagnosis Alcohol ingestion, mood disorder, electrolyte disturbance, gastritis hepatitis pancreatitis Narrative Course 52-year-old male presents to the emergency department with normal range vital signs without tachycardia or hypertension no tremor and no auditory or visual hallucinations. Presents as desirous of detox program. Patient is informed that we do not have a detox program here at this facility but we can medically clear him and send him for evaluation at [facility] [place] inpatient and outpatient alcohol detox resources. Patient identified to have markedly elevated total bilirubin and transaminases however compared to labs from May 2017 and November 2016 essentially unchanged; serum alcohol level is only 117 at time of collection, patient administered Ativan 1 mg IV. Electrolyte profile grossly within normal limits including magnesium of 1.9. Diagnosis Primary Impression: Alcohol abuse Additional Impressions: Elevated transaminase level Alcoholic hepatitis Qualified Codes: K70.10 - Alcoholic hepatitis without ascites Thrombocytopenia Referrals: [facility] call for appointment [facility] 1 day Patient Instructions: General Instructions Additional Instructions: [facility] for resources regarding inpatient and outpatient alcohol detox programs Follow-up with primary care provider/[facility] regarding management of cirrhosis Take Librium as prescribed as needed for anxiety and to help with discontinuing alcohol use Increase fluid hydration with non-alcoholic beverages Return to the emergency department for any concerns or change in condition Med/Other Pt SpecificInfo: Prescription(s) given Disposition: DISCHARGE HOME Condition: Stable Melvi Gloria MD Jul 07, 2017 03:13
[2017-07-07 03:20] VITALS: BP 126/75; PULSE 84; RESP 16; TEMP 99.1; O2SAT 97
[2017-07-07 06:17] VITALS: BP 118/72
== END 2017-07-07 06:36 | disposition home or self-care (01) ==
LOC: PHED 22:55
DX: F10.10 Alcohol abuse, uncomplicated (principal); R74.0 Nonspecific elevation of levels of transaminase and lactic acid dehydrogenase [LDH]; K70.10 Alcoholic hepatitis without ascites; D69.6 Thrombocytopenia, unspecified; R16.0 Hepatomegaly, not elsewhere classified; R16.1 Splenomegaly, not elsewhere classified; J44.9 Chronic obstructive pulmonary disease, unspecified; K21.9 Gastro-esophageal reflux disease without esophagitis; F17.200 Nicotine dependence, unspecified, uncomplicated
CPT/HCPCS: 74177; 80053; 80307; 81001; 83690; 83735; 85025; 96374; 99284; J2060; Q9967

== ENCOUNTER 2017-10-04 22:24 | Emergency (ER) | payer MEDICAID ==
[~2017-10-04] VITALS: Ht 170.2 cm; Wt 68.0 kg
[2017-10-04 22:33] VITALS: BP 126/73; PULSE 84; RESP 17; TEMP 97.5; O2SAT 97
[2017-10-04] MEDS ORDERED: THIAMINE INJ 100 MG in SODIUM CHLORIDE 0.9% INJ 100 ML IV ONE (23:45)
[2017-10-04] MEDS ORDERED: SODIUM CHLOR 0.9% 1000 ML INJ 1,000 ML IV SCH (23:45)
[2017-10-04 23:56] VITALS: RESP 18; O2SAT 98
--- NOTE | 2017-10-05 00:03 | PD ---
HPI Chief Complaint: Alcohol/Drug Intoxication Time Seen by Provider: 22:41 Travel History International Travel<30 days: No Contact w/Intl Traveler<30days: No Traveled to known affect area: No History of Present Illness HPI The patient is a 52 year old male who presents to the [facility] emergency department with a history of abdominal pain that he reports began a few hours prior to arrival. The patient reports that the pain is across the center of his abdomen. The patient reports that the pain is an aching sensation. He reports that he began to have the pain after he drank a significant amount of water in an attempt to flush his system of alcohol. The patient reports that he is a daily drinker and has been a daily drinker for most of his life. He reports that he is currently interested in alcohol detox. He reports that he has been drinking 2-12 packs of beer per day. He reports that he has had nausea with dry heaving 2 today. He denies having any diarrhea. He reports that his last bowel movement was yesterday. He denies having any blood in his stool or black or tarry stools. The patient reports that he last had a beer at approximately 7 PM. On review of systems otherwise, the patient denies having any known recent fevers, cough or congestion, neck pain, chest pain, shortness of breath, urinary symptoms, or neurologic symptoms. The patient reports that he has blisters on his feet related to walking significant amount recently. The patient is reportedly homeless. The patient incidentally reports that he is supposed to be on Seroquel, however he has not been taking this recently as it causes him to have heartburn and indigestion. [facility] Past Medical History Narrative Medical The patient's past medical history is significant for anxiety and depression, schizophrenia, history of cirrhosis, history of hepatitis C, history of COPD, history of daily alcohol use, history of daily smoking, prior history of IV drug use Anxiety: Yes Depression: Yes Cancer: No Cardiovascular Problems: No Cirrhosis: Yes COPD: Yes Endocrine: No GERD: Yes Genitourinary: No Hepatitis: Yes Neurologic: Yes Psychiatric: Yes (Pt. has psych hx in other states ) Respiratory: Yes (Collapsed lung on R) Pneumonia: Yes Schizophrenia: Yes Past Surgical History Narrative Surgical The patient's past surgical history is significant for an appendectomy, chest tube placement for pneumothorax Appendectomy: Yes Other Surgery: Yes (appendectomy) Social History Alcohol Use: Yes (2 12 packs daily) Tobacco Use: Yes (7-8 cigarettes/cigars daily) Substance Use: No (HX OF HEROIN, COCAINE, WEED. STATES STOPPED METHADONE: 2017 ) Allergies-Medications (Allergen,Severity, Reaction): Coded Allergies: acetaminophen (Verified Allergy, Unknown, 10/05/17) propoxyphene (Verified Allergy, Unknown, 10/05/17) Reported Meds & Prescriptions Reported Meds & Active Scripts Active Meclizine (Meclizine HCl) 25 Mg Tab 25 Mg PO TID PRN Quetiapine (Quetiapine Fumarate) 25 Mg Tab 50 Mg PO DAILY PRN Quetiapine (Quetiapine Fumarate) 100 Mg Tab 400 Mg PO HS Naltrexone (Naltrexone HCl) 50 Mg Tab 50 Mg PO DAILY Mirtazapine 15 Mg Tab 30 Mg PO HS Flonase Nasal [place] (Fluticasone Nasal [place]) 50 Mcg/Act [place] 50 Mcg EACH NARE BID 14 Days Klonopin (Clonazepam) 0.5 Mg Tab 0.5 Mg PO Q12HR Lactulose Liq (Lactulose) 10 Gm/15 Ml Soln 30 Ml PO BID Reported Vitamin B-1 (Thiamine HCl) 100 Mg Tab 100 Mg PO DAILY Albuterol Neb (Albuterol Sulfate) 2.5 Mg/3 Ml Neb 2.5 Mg NEB Q4HR NEB PRN Review of Systems Except as stated in HPI: all other systems reviewed are Neg General / Constitutional: No: Fever Eyes: No: Visual changes HENT: No: Headaches Cardiovascular: No: Chest Pain or Discomfort Respiratory: No: Shortness of Breath Gastrointestinal: Positive: Nausea, Vomiting, Abdominal Pain, Indigestion, No: Diarrhea, Hematemesis, Hematochezia, Changes in Bowel Habits, Loss of Appetite Genitourinary: No: Dysuria Musculoskeletal: No: Pain Skin: No Rash Neurologic: Positive: Tremor, No: Weakness, Focal Abnormalities, Change in Mentation, Slurred Speech, Sensory Disturbance Psychiatric: Positive: Anxiety, Substance Abuse, No: Depression, Suicidal Ideations, Homicidal Ideation Endocrine: No: Polydipsia Hematologic/Lymphatic: No: Easy Bruising Physical Exam Narrative General: The patient is a well-developed well-nourished male in no acute distress. Patient is disheveled appearing on examination. Head and Neck exam: Head is normocephalic atraumatic. Eyes: EOMI, pupils are equal round and reactive to light. Nose: Midline septum with pink mucous membranes Mouth: Dentition unremarkable. Moist mucus membranes. Posterior oropharynx is not erythematous. No tonsillar hypertrophy. Uvula midline. Airway patent. Neck: No palpable lymphadenopathy. No nuchal rigidity. No thyromegaly. Cardiovascular: Regular rate and rhythm without murmurs, gallops, or rubs. No pulse deficit to the extremities on simultaneous auscultation and palpation of his radial artery. Lungs: Clear to auscultation bilaterally. No wheezes, rhonchi, or rales. Abdomen: Soft, with reported tenderness on palpation in the right upper quadrant of the abdomen and midepigastric area, no other tenderness on palpation of the other quadrants of the abdomen. No tenderness on palpation of McBurney's point. No guarding, rebound, or rigidity. Negative Moody sign. Extremities: No clubbing, cyanosis, or edema. 2+ pulses in all 4 extremities. No calf tenderness on palpation. Back: No spinous process tenderness to palpation. No costovertebral angle tenderness to palpation. Neurologic Exam: Grossly nonfocal. No tremulousness noted. No asterixis noted. Skin Exam: The patient has some superficial appearing skin erosions on his feet related to recent prolonged walking and blistering. Intact skin that is warm and dry. Data Data Last Documented VS Vital Signs Date Time Temp Pulse Resp B/P (MAP) Pulse Ox O2 Delivery O2 Flow Rate FiO2 10/05/17 02:06 10/05/17 02:05 81 16 100 Room Air 10/04/17 22:33 97.5 Orders Orders Electrocardiogram (10/04/17 23:28) Complete Blood Count With Diff (10/04/17 23:28) Comprehensive Metabolic Panel (10/04/17 23:28) Prothrombin Time / Inr (Pt) (10/04/17 23:28) Act Partial Throm Time (Ptt) (10/04/17 23:28) Lipase (10/04/17 23:28) Urinalysis - C+S If Indicated (10/04/17 23:28) Iv Access Insert/Monitor (10/04/17 23:28) Ecg Monitoring (10/04/17 23:28) Oximetry (10/04/17 23:28) Drug Screen, Random Urine (10/04/17 23:28) Alcohol (Ethanol) (10/04/17 23:28) Thiamine Inj (Thiamine Inj) (10/04/17 23:45) Sodium Chlor 0.9% 1000 Ml Inj (Ns 1000 M (10/04/17 23:45) Chlordiazepoxide (Librium) (10/05/17 02:00) Labs Laboratory Tests Test 10/04/17 23:58 10/05/17 00:32 Prothrombin Time 12.7 SEC Prothromb Time International Ratio 1.3 RATIO Activated Partial Thromboplast Time 31.0 SEC Urine Color DARK-YELLOW Urine Turbidity HAZY Urine pH 7.5 Urine Specific [place] 1.018 Urine Protein TRACE mg/dL Urine Glucose (UA) NEG mg/dL Urine Ketones 10 mg/dL Urine Occult Blood NEG Urine Nitrite NEG Urine Bilirubin NEG Urine Urobilinogen GREATER THAN 12.0 MG/DL Urine Leukocyte Esterase NEG Urine RBC 1 /hpf Urine WBC 1 /hpf Urine Squamous Epithelial Cells <1 /hpf Urine Calcium Oxalate Crystals OCC /hpf Urine Amorphous Sediment RARE Urine Mucus FEW /lpf Microscopic Urinalysis Comment CULT NOT INDICATED Blood Urea Nitrogen 5 MG/DL Creatinine 0.73 MG/DL Random Glucose 78 MG/DL Total Protein 8.6 GM/DL Albumin 3.9 GM/DL Calcium Level 8.7 MG/DL Alkaline Phosphatase 193 U/L Aspartate Amino Transf (AST/SGOT) 143 U/L Alanine Aminotransferase (ALT/SGPT) 67 U/L Total Bilirubin 3.2 MG/DL Sodium Level 139 MEQ/L Potassium Level 3.3 MEQ/L Chloride Level 103 MEQ/L Carbon Dioxide Level 24.2 MEQ/L Anion Gap 12 MEQ/L Estimat Glomerular Filtration Rate 112 ML/MIN Lipase 280 U/L Urine Opiates Screen NEG Urine Barbiturates Screen NEG Urine Amphetamines Screen NEG Urine Benzodiazepines Screen POS Urine Cocaine Screen NEG Urine Cannabinoids Screen NEG Ethyl Alcohol Level 82 MG/DL White Blood Count 4.1 TH/MM3 Red Blood Count 4.23 MIL/MM3 Hemoglobin 13.3 GM/DL Hematocrit 39.5 % Mean Corpuscular Volume 93.3 FL Mean Corpuscular Hemoglobin 31.4 PG Mean Corpuscular Hemoglobin Concent 33.6 % Red Cell Distribution Width 14.8 % Platelet Count 70 TH/MM3 Mean Platelet Volume 9.2 FL Neutrophils (%) (Auto) 59.5 % Lymphocytes (%) (Auto) 23.5 % Monocytes (%) (Auto) 13.8 % Eosinophils (%) (Auto) 2.6 % Basophils (%) (Auto) 0.6 % Neutrophils # (Auto) 2.4 TH/MM3 Lymphocytes # (Auto) 1.0 TH/MM3 Monocytes # (Auto) 0.6 TH/MM3 Eosinophils # (Auto) 0.1 TH/MM3 Basophils # (Auto) 0.0 TH/MM3 CBC Comment AUTO DIFF Differential Comment AUTO DIFF CONFIRMED Platelet Estimate LOW Platelet Morphology Comment NORMAL MDM Medical Decision Making Medical Screen Exam Complete: Yes Emergency Medical Condition: Yes Medical Record Reviewed: Yes Differential Diagnosis Alcohol withdrawal, versus alcohol intoxication, versus other substance intoxication, versus peptic ulcer disease, versus pancreatitis, versus hepatitis Narrative Course During the course of the patient's emergency department visit, the patient's history, examination, and differential diagnosis were reviewed with the patient. The patient was placed on a vice president of advertising with oximetry and frequent blood pressure monitoring. The patient had IV access obtained and blood work sent for analysis. The patient had an EKG done on arrival that shows a sinus rhythm heart rate of 78,. No acute ST segment elevation is noted. The patient was initially provided the patient was started on normal saline IV fluids, thiamine 100 mg IV, Librium 50 MG p.o. 1. The patient's laboratory studies were reviewed and remarkable for a white count of 4.1, hemoglobin 13.3, platelets 70, monocytes 13.8. The patient has a prior history of thrombocytopenia, CMP is remarkable for potassium 3.3, BUN 5, total bilirubin 3.2, AST 143, alk phos 193, total protein 8.6, lipase 280. The patient's LFTs are similar in appearance to prior evaluations at this facility related to his history of cirrhosis and hepatitis as well as chronic alcohol abuse. PT 12.7, INR 1.3, PTT 31. Urine drug screen is positive for benzodiazepines, alcohol level 82, urinalysis shows 10 ketones greater than 12 urobilinogen, occasional calcium oxalate crystals otherwise unremarkable. The patient's electronic medical record was reviewed and the patient recently underwent a CT scan of the abdomen and pelvis with similar symptoms. At that time, the patient was noted to have hepatomegaly, hepatic steatosis and features diagnostic of cirrhosis. The patient is requesting alcohol related detoxification. I explained that this facility is not an alcohol detox facility, however the local detoxification center is the [facility]. The patient is provided information including phone number and address for follow-up. The patient is resting comfortably and feels better, is alert and in no distress. The patient's results and examination findings were discussed with the patient. The repeat examination is unremarkable and benign. The history, exam, diagnostic testing, and current condition do not suggest any significant pathology to warrant further testing, continued ED treatment, admission, or surgical evaluation at this point. The vital signs have been stable. The patient does not have uncontrollable pain, intractable vomiting, or other significant symptoms. The patient's condition is stable and appropriate for discharge. The patient will pursue further outpatient evaluation with a primary care physician or other designated or consulting physician as indicated in the discharge instructions. The patient is instructed to report back to the emergency department immediately for reexamination in the mean time if he develops any new or worsening signs or symptoms. The patient expressed understanding and was agreeable with this plan. Diagnosis Primary Impression: Alcohol abuse Additional Impression: Elevated transaminase level [facility] Patient Instructions: Abuse of Alcohol (ED), Alcoholic Hepatitis (ED), General Instructions Disposition: 01 DISCHARGE HOME Condition: Stable Geetha Moss MD Oct 05, 2017 00:03
[2017-10-05 00:06] VITALS: BP 131/80; PULSE 75; RESP 16; O2SAT 98
[2017-10-05 00:23] LABS: INTERNATIONAL NORMALIZED RATIO 1.3 RATIO; PROTHROMBIN TIME - PATIENT 12.7 SEC (9.8-11.6)
[2017-10-05 00:34] LABS: ALBUMIN 3.9 GM/DL (3.4-5.0); ALT (GPT) 67 U/L (12-78); AST (GOT) 143 U/L (15-37); BICARBONATE 24.2 MEQ/L (21.0-32.0); BLOOD UREA NITROGEN 5 MG/DL (7-18); CALCIUM 8.7 MG/DL (8.5-10.1); CHLORIDE 103 MEQ/L (98-107); CREATININE 0.73 MG/DL (0.60-1.30); GLOMERULAR FILTRATION RATE 112 ML/MIN (>89); GLUCOSE,RANDOM 78 MG/DL (74-106); SODIUM (NA) 139 MEQ/L (136-145)
[2017-10-05 00:35] LABS: AMORPHOUS SEDIMENT, URINE RARE; BLOOD, URINE NEG (NEG); CALCIUM OXALATE CRYSTALS,URINE OCC /hpf; GLUCOSE,URINE NEG (NEG); KETONE, URINE 10 mg/dL (NEG); MUCUS URINE FEW /lpf (OCC); NITRITE,URINE NEG (NEG); PH, URINE 7.5 (5.0-8.5); SQUAMOUS EPITHELIAL CELL URINE <1 /hpf (0-5); URINE COLOR DARK-YELLOW (YELLW/STRAW); URINE LEUKOCYTE ESTERASE NEG (NEG)
[2017-10-05 00:37] LABS: ALKALINE PHOSPHATASE 193 U/L (45-117); TOTAL BILIRUBIN ADULT 3.2 MG/DL (0.2-1.0); TOTAL PROTEIN 8.6 GM/DL (6.4-8.2)
[2017-10-05 00:38] LABS: BILIRUBIN, URINE NEG (NEG)
[2017-10-05 00:42] LABS: AUTOMATED NEUTROPHIL # 2.4 TH/MM3 (1.8-7.7); BASOPHIL % 0.6 % (0.0-2.0); EOSINOPHIL # 0.1 TH/MM3 (0-0.4); EOSINOPHIL % 2.6 % (0.0-4.0); HEMATOCRIT 39.5 % (39.0-51.0); HEMOGLOBIN 13.3 GM/DL (13.0-17.0); LYMPH % 23.5 % (9.0-44.0); MEAN CELL VOLUME 93.3 FL (80.0-100.0); MEAN CORPUSCULAR HEMOGLOBIN 31.4 PG (27.0-34.0); MEAN CORPUSCULAR HGB CONC 33.6 % (32.0-36.0); MEAN PLATELET VOLUME 9.2 FL (7.0-11.0); MONO % 13.8 % (0.0-8.0); MONOCYTE # 0.6 TH/MM3 (0-0.9); NEUT % 59.5 % (16.0-70.0); PLATELET COUNT 70 TH/MM3 (150-450); RED BLOOD COUNT 4.23 MIL/MM3 (4.50-5.90); RED CELL DISTRIBUTION WIDTH 14.8 % (11.6-17.2); WHITE BLOOD COUNT 4.1 TH/MM3 (4.0-11.0)
[2017-10-05] MEDS ORDERED: chlordiazePOXIDE 25 MG CAP PO PRN (02:00)
[2017-10-05 02:05] VITALS: BP 149/82; PULSE 81; RESP 16; O2SAT 100
--- NOTE | 2017-10-05 09:06 | EKG ---
Date Performed: 10/04/2017 Time Performed: 23:53:02 PTAGE: 52 years EKG: Sinus rhythm NONSPECIFIC T-WAVE ABNORMALITY BORDERLINE ECG PREVIOUS TRACING : 05/11/2017 17.09 Since the previous tracing, no significant change noted DOCTOR: Tio Fonseca Interpretating Date/Time 10/05/2017 09:05:35
== END 2017-10-05 02:23 | disposition home or self-care (01) ==
LOC: NEPC 22:24
DX: F10.10 Alcohol abuse, uncomplicated (principal); R74.0 Nonspecific elevation of levels of transaminase and lactic acid dehydrogenase [LDH]; Y90.4 Blood alcohol level of 80-99 mg/100 ml; R11.2 Nausea with vomiting, unspecified; F41.9 Anxiety disorder, unspecified; R94.31 Abnormal electrocardiogram [ECG] [EKG]; R25.1 Tremor, unspecified; J44.9 Chronic obstructive pulmonary disease, unspecified; K21.9 Gastro-esophageal reflux disease without esophagitis; B19.20 Unspecified viral hepatitis C without hepatic coma; F20.9 Schizophrenia, unspecified; Z59.0 Homelessness; Z79.899 Other long term (current) drug therapy
CPT/HCPCS: 80053; 80307; 81001; 83690; 85025; 85610; 85730; 93005; 96365; 99284; J3411; J7030

== ENCOUNTER 2017-11-03 21:46 | Observation (INO) ==
[2017-11-03] MEDS ORDERED: Sod Chloride 0.9% Inj 1,000 ML IV.SIG ONE (22:14)
[2017-11-03 22:41] LABS: Baso # (Auto) 0.1 th/mm3 (0.0-0.2); Baso % (Auto) 1.2 % (0.0-2.0); Eos # (Auto) 0.2 th/mm3 (0.0-0.4); Eos % (Auto) 3.5 % (0.0-4.0); Hemoglobin 13.7 gm/dL (13.0-17.0); Lymph # (Auto) 1.6 th/mm3 (1.0-4.8); Lymph % (Auto) 31.8 % (9.0-44.0); Mean Corpuscular HGB Conc 33.4 % (32.0-36.0); Mean Corpuscular Hemoglobin 31.5 pg (27.0-34.0); Mean Corpuscular Volume 94.5 fL (80.0-100.0); Mean Platelet Volume 9.8 fL (7.0-11.0); Mono # (Auto) 0.9 th/mm3 (0.0-0.9); Mono % (Auto) 17.9 % (0.0-8.0); Neut # (Auto) 2.3 th/mm3 (1.8-7.7); Neut % (Auto) 45.6 % (16.0-70.0); Platelet Count 94 th/mm3 (150-450); Red Blood Count 4.34 mil/mm3 (4.50-5.90); Red Cell Distribution Width 14.6 % (11.6-17.2); White Blood Count 5.1 th/mm3 (4.0-11.0)
[2017-11-03 22:44] LABS: Chloride 109 meq/L (98-107); Potassium 3.6 meq/L (3.5-5.1); Sodium 144 meq/L (136-145)
[2017-11-03 22:48] LABS: Albumin 3.4 g/dL (3.4-5.0); Anion Gap 9 meq/L (5-15); Blood Urea Nitrogen 7 mg/dL (7-18); Calcium 8.7 mg/dL (8.5-10.1); Carbon Dioxide 26.4 meq/L (21.0-32.0); Glucose,Random 103 mg/dL (74-106); Lipase 176 U/L (73-393)
[2017-11-03 22:51] LABS: Alanine Aminotransferase 66 U/L (12-78); Aspartate Aminotransferase 123 U/L (15-37); Glomerular Filtration Rate Greater Than 89 mL/min (>89)
[2017-11-03 22:53] LABS: Total Protein 7.8 g/dL (6.4-8.2)
[2017-11-03 22:54] LABS: Alkaline Phosphatase 191 U/L (45-117)
[2017-11-03 22:55] LABS: Activated Partial Thrombo Time 28.5 sec (24.3-30.1); INR 1.3 Ratio; Prothrombin Time 13.4 sec (9.8-11.6)
[2017-11-03 23:04] LABS: Platelet Morphology Normal (Normal); RBC Morphology Normal (Normal)
[2017-11-03 23:11] LABS: Alcohol 298 mg/dL (0-5)
[2017-11-03 23:12] LABS: Bilirubin,Urine Negative (Negative); Clarity,Urine Clear (Clear); Color,Urine Yellow (Yellw/Straw); Glucose,Urine (UA) Negative (Negative); Leukocyte Esterase,Urine Negative (Negative); Nitrite,Urine Negative (Negative); Urobilinogen,Urine 0.2 mg/dL (Less than 2)
--- NOTE | 2017-11-03 23:13 | ED ---
HPI General Chief complaint: Abdominal Pain Stated complaint: Abd Pain Time Seen by Provider: 11/03/17 22:02 Source: patient and EMS History of Present Illness HPI narrative: Patient is a 52-year-old male who presents the emergency room with multiple complaints. Patient reports that he is an alcoholic, he drinks 12 beers per day, patient reports that he has history of hepatitis, reports that for the past few days, he has been having lower abdominal pain. Patient reports that today, he had a large bowel movement while he was in the wise, reports that he used grass to wipe his stool and noticed that his stool was black. Patient reports that he is not taking any anticoagulants, denies history of GI bleed in the past. Patient also reports that he is suicidal, patient reports that he had a gun, he would shoot himself. Patient is requesting psychiatric evaluation, he contracts for safety in the emergency room. Onset (ago): day(s) Radiation: non-radiation and abdomen Pain Consistency: constant Related Data Home Medications Medication Instructions Recorded Confirmed No Known Home Medications 11/03/17 11/03/17 Allergies Allergy/AdvReac Type Severity Reaction Status Date / Time acetaminophen Allergy Unknown Verified 10/28/17 06:42 propoxyphene Allergy Unknown Verified 10/28/17 06:42 Review of Systems ROS Unobtainable All other systems reviewed negative except as stated in HPI [facility] Medical History Medical History Bipolar disorder (Acute) Collapsed lung (Acute) Hepatitis C (Acute) Schizophrenia (Acute) Seizure due to alcohol withdrawal (Acute) Surgical History Surgical History History of appendectomy (Acute) Social History Social History Substance History: No History of Abuse Smoking Status: Heavy tobacco smoker Tobacco Type: Cigarettes How Often Do You Have a Drink Containing Alcohol: 4 or more times a week Recent Travel in [facility] within the Last 8 Weeks: No Recent Out of Country Travel within the Last 8 Weeks: No Immunization History Tetanus Immunization: Unsure Hx Influenza Vaccine This Season: No Exam Narrative Exam Narrative: GENERAL: Patient intoxicated SKIN: Focused skin assessment warm/dry. HEAD: Atraumatic. Normocephalic. EYES: Pupils equal and round. No scleral icterus. No injection or drainage. ENT: No nasal bleeding or discharge. Mucous membranes pink and moist. NECK: Trachea midline. No JVD. CARDIOVASCULAR: Regular rate and rhythm. No murmur appreciated. RESPIRATORY: No accessory muscle use. Clear to auscultation. Breath sounds equal bilaterally. GASTROINTESTINAL: Abdomen soft, non-tender, nondistended. Hepatic and splenic margins not palpable. Rectal exam performed with RN at bedside, patient with heme positive melanotic stool MUSCULOSKELETAL: No obvious deformities. No clubbing. No cyanosis. No edema. NEUROLOGICAL: Awake and alert. No obvious cranial nerve deficits. Motor grossly within normal limits. Normal speech. PSYCHIATRIC: Flat mood and affect; positive suicidal thoughts Course Initial Documented Vital Signs Temperature 98.2 F 11/03/17 21:50 Pulse Rate 95 H 11/03/17 21:50 Respiratory Rate 20 11/03/17 21:50 Blood Pressure 108/81 11/03/17 21:50 Pulse Oximetry 95 11/03/17 21:50 Last Documented Vital Signs Temperature 98.2 F 11/03/17 21:50 Pulse Rate 85 11/03/17 23:23 Respiratory Rate 18 11/03/17 23:23 Blood Pressure 111/70 11/03/17 23:23 Pulse Oximetry 96 11/03/17 23:23 Medical Decision Making MDM Narrative Medical decision making narrative: During the course of the patients emergency department visit, the patients history, examination, and differential diagnosis were reviewed with the patient. The patient was placed on a manager cardiac cath with oximetry and frequent blood pressure monitoring. The patient had an IV access obtained and blood work sent for analysis. The patient was initially provided IVF The patients laboratory studies were reviewed and remarkable for: HGB 13.7, HCT 41, INR 1.3 Sodium 144, chloride 109, BUN 7, creatinine 0.55, AST 123, ALT 66, alk phos 191 Alcohol level is 298, salicylates less than 1.7, acetaminophen less than 2.[address] the abdomen pelvis With no acute findings, liver cirrhosis and mild splenomegaly. Patient will be obvious for GI bleed workup as well as impending DTs and suicidal thoughts. Case reviewed with Dr. Almazan who accepts pt to service Differential Diagnosis Differential Diagnosis: GI bleed, ulcer, colitis, alcoholism, hepatitis, SI, depression Medical Records Medical records reviewed: Yes I reviewed the patient's medical records. Lab Data Result diagrams: 11/03/17 22:20 11/03/17 22:20 Lab Results 11/03/17 11/03/17 11/03/17 Range/Units 22:20 22:20 22:20 CBC w Diff Slide review pending WBC 5.1 (4.0-11.0) th/mm3 RBC 4.34 L (4.50-5.90) mil/mm3 Hgb 13.7 (13.0-17.0) gm/dL Hct 41.0 (39.0-51.0) % MCV 94.5 (80.0-100.0) fL MCH 31.5 (27.0-34.0) pg MCHC 33.4 (32.0-36.0) % RDW 14.6 (11.6-17.2) % Plt Count 94 L (150-450) th/mm3 MPV 9.8 (7.0-11.0) fL Neut % (Auto) 45.6 (16.0-70.0) % Lymph % (Auto) 31.8 (9.0-44.0) % [place] % (Auto) 17.9 H (0.0-8.0) % Eos % (Auto) 3.5 (0.0-4.0) % Baso % (Auto) 1.2 (0.0-2.0) % Neut # (Auto) 2.3 (1.8-7.7) th/mm3 Lymph # (Auto) 1.6 (1.0-4.8) th/mm3 [place] # (Auto) 0.9 (0.0-0.9) th/mm3 Eos # (Auto) 0.2 (0.0-0.4) th/mm3 Baso # (Auto) 0.1 (0.0-0.2) th/mm3 WBC Differential . Diff Scan Auto diff confirmed Platelet Estimate Low L (Normal) Platelet Morphology Normal (Normal) RBC Morphology Normal (Normal) PT 13.4 H (9.8-11.6) sec INR 1.3 Ratio APTT 28.5 (24.3-30.1) sec Sodium 144 (136-145) meq/L Potassium 3.6 (3.5-5.1) meq/L Chloride 109 H (98-107) meq/L Carbon Dioxide 26.4 (21.0-32.0) meq/L Anion Gap 9 (5-15) meq/L BUN 7 (7-18) mg/dL Creatinine 0.55 L (0.60-1.30) mg/dL Estimated GFR Greater than 89 (>89) mL/min Random Glucose 103 (74-106) mg/dL Calcium 8.7 (8.5-10.1) mg/dL Total Bilirubin 1.3 H (0.2-1.0) mg/dL AST 123 H (15-37) U/L ALT 66 (12-78) U/L Alkaline Phosphatase 191 H (45-117) U/L Total Protein 7.8 (6.4-8.2) g/dL Albumin 3.4 (3.4-5.0) g/dL Lipase 176 (73-393) U/L Urine Color (Yellw/Straw) Urine Clarity (Clear) Urine pH (5.0-8.5) Ur Specific [place] (1.002-1.035) Urine Protein (Neg-Trace) mg/dL Urine Glucose (UA) (Negative) mg/dL Urine Ketones (Negative) mg/dL Urine Occult Blood (Negative) Urine Nitrate (Negative) Urine Bilirubin (Negative) Urine Urobilinogen (Less than 2) mg/dL Ur Leukocyte Esterase (Negative) Urine RBC (0-3) /hpf Urine WBC (0-5) /hpf Ur Squamous Epith Cells (0-5) /hpf Micro UA Comment Urine Culture Comments Salicylates (2.8-20.0) mg/dL Acetaminophen Less than 2.0 L (10.0-30.0) mcg/mL Serum Alcohol 298 H (0-5) mg/dL 11/03/17 11/03/17 Range/Units 22:20 23:00 CBC w Diff WBC (4.0-11.0) th/mm3 RBC (4.50-5.90) mil/mm3 Hgb (13.0-17.0) gm/dL Hct (39.0-51.0) % MCV (80.0-100.0) fL MCH (27.0-34.0) pg MCHC (32.0-36.0) % RDW (11.6-17.2) % Plt Count (150-450) th/mm3 MPV (7.0-11.0) fL Neut % (Auto) (16.0-70.0) % Lymph % (Auto) (9.0-44.0) % [place] % (Auto) (0.0-8.0) % Eos % (Auto) (0.0-4.0) % Baso % (Auto) (0.0-2.0) % Neut # (Auto) (1.8-7.7) th/mm3 Lymph # (Auto) (1.0-4.8) th/mm3 [place] # (Auto) (0.0-0.9) th/mm3 Eos # (Auto) (0.0-0.4) th/mm3 Baso # (Auto) (0.0-0.2) th/mm3 WBC Differential Diff Scan Platelet Estimate (Normal) Platelet Morphology (Normal) RBC Morphology (Normal) PT (9.8-11.6) sec INR Ratio APTT (24.3-30.1) sec Sodium (136-145) meq/L Potassium (3.5-5.1) meq/L Chloride (98-107) meq/L Carbon Dioxide (21.0-32.0) meq/L Anion Gap (5-15) meq/L BUN (7-18) mg/dL Creatinine (0.60-1.30) mg/dL Estimated GFR (>89) mL/min Random Glucose (74-106) mg/dL Calcium (8.5-10.1) mg/dL Total Bilirubin (0.2-1.0) mg/dL AST (15-37) U/L ALT (12-78) U/L Alkaline Phosphatase (45-117) U/L Total Protein (6.4-8.2) g/dL Albumin (3.4-5.0) g/dL Lipase (73-393) U/L Urine Color Yellow (Yellw/Straw) Urine Clarity Clear (Clear) Urine pH 7.0 (5.0-8.5) Ur Specific [place] 1.010 (1.002-1.035) Urine Protein Negative (Neg-Trace) mg/dL Urine Glucose (UA) Negative (Negative) mg/dL Urine Ketones Negative (Negative) mg/dL Urine Occult Blood Negative (Negative) Urine Nitrate Negative (Negative) Urine Bilirubin Negative (Negative) Urine Urobilinogen 0.2 (Less than 2) mg/dL Ur Leukocyte Esterase Negative (Negative) Urine RBC 0-3 (0-3) /hpf Urine WBC 0-5 (0-5) /hpf Ur Squamous Epith Cells 0-5 (0-5) /hpf Micro UA Comment Culture not ind Urine Culture Comments Culture not ind Salicylates Less than 1.7 L (2.8-20.0) mg/dL Acetaminophen (10.0-30.0) mcg/mL Serum Alcohol (0-5) mg/dL Imaging Data Radiologist's impression: ITS Impressions Abdomen/Pelvis CT 11/03/17 22:14 CONCLUSION: 1. No acute mallet. 2. Cirrhosis. 3. Mild splenomegaly. Discharge Plan Discharge Disposition Patient Disposition: 30 Still Patient Physicians Team ED Provider: Jenny Johnson Primary Care Provider: Primary Care Hoda Castro Rxs /Orders / Referrals /Forms Prescriptions: No Action No Known Home Medications RF: 0 Status ED Status: Admitted Patient
[2017-11-03 23:28] LABS: RBC,Urine 0-3 /hpf (0-3); Squamous Epithelial Cell,Urine 0-5 /hpf (0-5); WBC,Urine 0-5 /hpf (0-5)
[2017-11-03] MEDS ORDERED: Pantoprazole Inj 80 MG in Sodium Chlor 0.9% Inj 50 ML IV.SIG ONE (23:32)
[2017-11-03] MEDS ORDERED: Haloperidol Inj 5 MG/ML Ampul IV.PUSH PRN (23:35)
[2017-11-04 02:31] LABS: Hematocrit 40.5 % (39.0-51.0)
[2017-11-04 08:30] LABS: Hemoglobin 14.1 gm/dL (13.0-17.0)
--- NOTE | 2017-11-04 09:36 | P.HP ---
History of Present Illness Primary Care Physician: No Primary Care Physician Chief Complaint: black stool History of Present Illness: patient is a 52 y/o male , homeless, with history of depression, with chronic alcohol abuse, presented to ER with black stools. he says that it's been going on for a couple of days. he denies any abdominal pain, nausea or vomiting. he says that he has a history of depression but he's not taking any medications. he denies any suicidal thoughts. - Diagnosis (1) Melena (2) Bipolar disorder (3) Alcohol abuse Inpatient Certification: I certify that the inpatient services were ordered in accordance with Medicare regulations governing the order. This includes certification that hospital inpatient services are reasonable and necessary and in the case of services not specified as inpatient-only under 42 CFR 419.22(n), that they are appropriately provided as inpatient services in accordance to with the 2-midnight benchmark under 43 CFR 412.3(e) Estimated Total Length of Stay (Days): 2 Plans for Post Hospital Care: Not yet determined Review of Systems All other systems reviewed negative except as stated [facility] - History History Provided By: Patient - Medical History Medical History: Medical History (Last Reviewed 11/03/17 @ 23:09 by Jenny Johnson) Bipolar disorder Collapsed lung Hepatitis C Schizophrenia Seizure due to alcohol withdrawal - Surgical History Surgical History: Surgical History (Last Reviewed 11/03/17 @ 23:09 by Jenny Johnson) History of appendectomy - Tobacco History Tobacco Use In Past 30 Days: Yes Smoking Status: Heavy tobacco smoker Tobacco Type: Cigarettes - Alcohol History How Often Do You Have a Drink Containing Alcohol: 4 or more times a week - Substance Use History Substance History: No History of Abuse - Travel History Recent Travel in the [place] Within the Last 8 Weeks: No Recent Travel Out of the Country Within the Last 8 Weeks: No - Immunization History Tetanus Immunization: Unsure Hx Influenza Vaccine This Season: No Medications and Allergies Active Medications: Active Medications Flumazenil (Romazecon Inj) 0.2 mg IV.PUSH Q1M PRN PRN Reason: OVERSEDATION Haloperidol Lactate (Haldol Inj) 1 mg IV.PUSH Q15M PRN PRN Reason: for severe agitation Thiamine HCl 100 mg/ Sodium (Chloride) 101 mls @ 100 mls/hr IV.SIG DAILY DOUGLAS Lorazepam (Ativan) 1 mg PO Q4H PRN PRN Reason: for CIWA 8-10 Lorazepam (Ativan) 2 mg PO Q2H PRN PRN Reason: for CIWA 11-14 Lorazepam (Ativan Inj) 2 mg IV.PUSH Q2H PRN PRN Reason: for CIWA 11-14 Lorazepam (Ativan Inj) 2 mg IV.PUSH Q1H PRN PRN Reason: for CIWA 15-20 Lorazepam (Ativan Inj) 2 mg IV.PUSH Q15M PRN PRN Reason: for CIWA > 20 Lorazepam (Ativan Inj) 1 mg IV.PUSH Q4H PRN PRN Reason: for CIWA 8-10 Pantoprazole Sodium (Protonix Inj) 40 mg IV.PUSH BID DOUGLAS Sodium Chloride (Ns Flush) 2 ml IV.FLUSH PRN PRN PRN Reason: FLUSH AFTER USING IV ACCESS Sodium Chloride (Ns Flush) 2 ml IV.FLUSH BID DOUGLAS Sodium Chloride (Ns Flush) 2 ml IV.FLUSH PRN PRN PRN Reason: FLUSH AFTER USING IV ACCESS Last Admin: 11/04/17 00:58 Dose: 2 ml Allergies Allergy/AdvReac Type Severity Reaction Status Date / Time acetaminophen Allergy Unknown Verified 10/28/17 06:42 propoxyphene Allergy Unknown Verified 10/28/17 06:42 Home Medications Medication Instructions Recorded Confirmed Type No Known Home Medications 11/03/17 11/03/17 History Exam Vital signs: Vital Signs 11/03/17 21:50 11/03/17 22:14 11/03/17 23:23 Temperature 98.2 F Pulse Rate 95 H 85 Respiratory Rate 20 18 Blood Pressure 108/81 111/70 Pulse Oximetry 95 95 96 11/04/17 05:00 11/04/17 09:24 Temperature Pulse Rate 76 84 Respiratory Rate 20 16 Blood Pressure 144/89 H Pulse Oximetry 95 Intake & Output 11/03/17 11/04/17 11/04/17 18:59 06:59 18:59 Intake Total 1050 / 1050 Output Total 700 / 700 Balance 350 / 350 Weight 72.575 kg Intake: IV 1050 / 1050 Protonix Inj 80 MG In NS Inj 50 50 / 50 ML @ 600 mls/hr IV.SIG BOLUS ONE Rx#:[id number] NS Inj 1,000 ML @ Wide Open IV. 1000 / 1000 SIG BOLUS ONE Rx#:[id number] Output: Urine 700 / 700 Other: Date of Last Bowel Movement 11/03/17 - Constitutional no acute distress - Routine HEENT Exam Head: Present: atraumatic Eye: Present: PERRL - Routine Neck Exam Present: supple, full ROM - Routine Respiratory Exam Present: CTA bilaterally - Routine Cardiovascular Exam Present: RRR - Routine Abdominal Exam Present: soft - Routine Neurological Exam Present: alert, oriented X3 Results - Labs CBC & Chem 7: 11/06/17 10:50 11/03/17 22:20 Labs: Laboratory Results - last 24 hr 11/03/17 11/03/17 11/03/17 22:20 22:20 22:20 CBC w Diff Slide review pending WBC 5.1 RBC 4.34 L Hgb 13.7 Hct 41.0 MCV 94.5 MCH 31.5 MCHC 33.4 RDW 14.6 Plt Count 94 L MPV 9.8 Neut % (Auto) 45.6 Lymph % (Auto) 31.8 [place] % (Auto) 17.9 H Eos % (Auto) 3.5 Baso % (Auto) 1.2 Neut # (Auto) 2.3 Lymph # (Auto) 1.6 [place] # (Auto) 0.9 Eos # (Auto) 0.2 Baso # (Auto) 0.1 WBC Differential . Diff Scan Auto diff confirmed Platelet Estimate Low L Platelet Morphology Normal RBC Morphology Normal PT 13.4 H INR 1.3 APTT 28.5 Sodium 144 Potassium 3.6 Chloride 109 H Carbon Dioxide 26.4 Anion Gap 9 BUN 7 Creatinine 0.55 L Estimated GFR Greater than 89 Random Glucose 103 Calcium 8.7 Total Bilirubin 1.3 H AST 123 H ALT 66 Alkaline Phosphatase 191 H Total Protein 7.8 Albumin 3.4 Lipase 176 Urine Color Urine Clarity Urine pH Ur Specific [place] Urine Protein Urine Glucose (UA) Urine Ketones Urine Occult Blood Urine Nitrate Urine Bilirubin Urine Urobilinogen Ur Leukocyte Esterase Urine RBC Urine WBC Ur Squamous Epith Cells Micro UA Comment Urine Culture Comments Salicylates Acetaminophen Less than 2.0 L Serum Alcohol 298 H Blood Type Blood Type Recheck Antibody Screen 11/03/17 11/03/17 11/03/17 22:20 22:20 23:00 CBC w Diff WBC RBC Hgb Hct MCV MCH MCHC RDW Plt Count MPV Neut % (Auto) Lymph % (Auto) [place] % (Auto) Eos % (Auto) Baso % (Auto) Neut # (Auto) Lymph # (Auto) [place] # (Auto) Eos # (Auto) Baso # (Auto) WBC Differential Diff Scan Platelet Estimate Platelet Morphology RBC Morphology PT INR APTT Sodium Potassium Chloride Carbon Dioxide Anion Gap BUN Creatinine Estimated GFR Random Glucose Calcium Total Bilirubin AST ALT Alkaline Phosphatase Total Protein Albumin Lipase Urine Color Yellow Urine Clarity Clear Urine pH 7.0 Ur Specific [place] 1.010 Urine Protein Negative Urine Glucose (UA) Negative Urine Ketones Negative Urine Occult Blood Negative Urine Nitrate Negative Urine Bilirubin Negative Urine Urobilinogen 0.2 Ur Leukocyte Esterase Negative Urine RBC 0-3 Urine WBC 0-5 Ur Squamous Epith Cells 0-5 Micro UA Comment Culture not ind Urine Culture Comments Culture not ind Salicylates Less than 1.7 L Acetaminophen Serum Alcohol Blood Type O Positive Blood Type Recheck Required Antibody Screen Negative 11/04/17 02:15 CBC w Diff WBC RBC Hgb 13.0 Hct 40.5 MCV MCH MCHC RDW Plt Count MPV Neut % (Auto) Lymph % (Auto) [place] % (Auto) Eos % (Auto) Baso % (Auto) Neut # (Auto) Lymph # (Auto) [place] # (Auto) Eos # (Auto) Baso # (Auto) WBC Differential Diff Scan Platelet Estimate Platelet Morphology RBC Morphology PT INR APTT Sodium Potassium Chloride Carbon Dioxide Anion Gap BUN Creatinine Estimated GFR Random Glucose Calcium Total Bilirubin AST ALT Alkaline Phosphatase Total Protein Albumin Lipase Urine Color Urine Clarity Urine pH Ur Specific [place] Urine Protein Urine Glucose (UA) Urine Ketones Urine Occult Blood Urine Nitrate Urine Bilirubin Urine Urobilinogen Ur Leukocyte Esterase Urine RBC Urine WBC Ur Squamous Epith Cells Micro UA Comment Urine Culture Comments Salicylates Acetaminophen Serum Alcohol Blood Type Blood Type Recheck Antibody Screen - Imaging Impressions Abdomen/Pelvis CT 11/03/17 22:14 CONCLUSION: 1. No acute mallet. 2. Cirrhosis. 3. Mild splenomegaly. Caprini VTE Risk Assessment Caprini VTE Risk Assessment: Moderate/High Risk (score >= 2) VTE Pharmacological Exception Reason: High risk for bleeding Caprini Risk Assessment Model: Point Value = 1 Point Value = 2 Point Value = 3 Point Value = 5 Age 41-60 Minor surgery BMI > 25 kg/m2 Swollen legs Varicose veins or History of unexplained or recurrent spontaneous Oral contraceptives or hormone replacement Sepsis (< 1 month) Serious lung disease, including pneumonia (< 1 month) Abnormal pulmonary function Acute myocardial infarction Congestive heart failure (< 1 month) History of inflammatory bowel disease Medical patient at bed rest Age 61-74 Arthroscopic surgery Major open surgery (> 45 min) Laparoscopic surgery (> 45 min) Malignancy Confined to bed (> 72 hours) Immobilizing plaster cast Central venous access Age >= 75 History of VTE Family history of VTE Factor V Leiden Prothrombin [id number] Lupus anticoagulant Anticardiolipin antibodies Elevated serum homocysteine Heparin-induced thrombocytopenia Other congenital or acquired thrombophilia Stroke (< 1 month) Elective arthroplasty Hip, pelvis, or leg fracture Acute spinal cord injury (< 1 month) Prophylaxis Regimen: Total Risk Factor Score Risk Level Prophylaxis Regimen 0-1 Low Early ambulation 2 Moderate Order ONE of the following: *Sequential Compression Device (SCD) *Heparin 5000 units SQ BID 3-4 Higher Order ONE of the following medications: *Heparin 5000 units SQ TID *Enoxaparin/Lovenox 40 mg SQ daily (WT < 150 kg, CrCl > 30 mL/min) *Enoxaparin/Lovenox 30 mg SQ daily (WT < 150 kg, CrCl > 10-29 mL/min) *Enoxaparin/Lovenox 30 mg SQ BID (WT < 150 kg, CrCl > 30 mL/min) AND/OR *Sequential Compression Device (SCD) 5 or more Highest Order ONE of the following medications: *Heparin 5000 units SQ TID (Preferred with Epidurals) *Enoxaparin/Lovenox 40 mg SQ daily (WT < 150 kg, CrCl > 30 mL/min) *Enoxaparin/Lovenox 30 mg SQ daily (WT < 150 kg, CrCl > 10-29 mL/min) *Enoxaparin/Lovenox 30 mg SQ BID (WT < 150 kg, CrCl > 30 mL/min) AND *Sequential Compression Device (SCD) Assessment and Plan - Assessment (1) Melena Code(s): K92.1 - Melena Status: Acute Plan: H/H stable- will continue with PPI- monitor H/H-GI consulted. (2) Bipolar disorder Code(s): F31.9 - Bipolar disorder, unspecified Status: Chronic Plan: psych consulted- awaiting recommendations. (3) Alcohol abuse Code(s): F10.10 - Alcohol abuse, uncomplicated Status: Chronic Plan: started on CIWA protocol- continue with thiamine.advised to stop drinking.
--- NOTE | 2017-11-04 12:06 | MB ---
cc: Angy Todd MD DATE: 11/04/2017 REFERRING PHYSICIAN: Dr. Yancey. REASON FOR CONSULTATION: GI bleed. HISTORY OF PRESENT ILLNESS: Mr. Huynh is a 52-year-old gentleman who came to the emergency room with complaints of black tarry stool, also complaining of increased depression. The patient has a history of chronic alcohol abuse. 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 He came to the emergency room complaining of black stools. Denies any nausea, vomiting, constipation, diarrhea, dysphagia, odynophagia or weight loss. The patient stated this is going on for a few days. Denies any ingestion of NSAIDs. He does have a history of a colonoscopy being done many years ago and as per him everything was normal. He does not recall exactly when. He was evaluated in the past in this facility and as part of the workup, patient had a CT abdomen and pelvis done in July of this year that was consistent with portal hypertension. PAST MEDICAL HISTORY: He has a history of hepatitis C, alcohol abuse, schizophrenia, collapsed lung, bipolar disorder, seizure due to alcohol. PAST SURGICAL HISTORY: Appendectomy. SOCIAL HISTORY: He drinks quite often. No history of drug use. Heavy tobacco smoker. Denies any recent travel. MEDICATIONS: In the hospital, he was given haloperidol, thiamine, lorazepam and Protonix. At home, not taking any medications. ALLERGIES: TYLENOL AND PROPOXYPHENE. REVIEW OF SYSTEMS: GENERAL: He denies any fever, chills, weight loss or weight gain. ENT: No alteration of baseline hearing or visual activity. PULMONARY: Denies any chest pain or shortness of breath. GASTROINTESTINAL: As above. GENITOURINARY: Denies dysuria or hematuria. HEMATOLOGICAL: No history of anemia or bleeding disorder. SKIN: No alteration of baseline skin lesion. NEUROLOGIC: No history of TIA or CVA kind of symptoms. PSYCHIATRIC: He does have increased depression. PHYSICAL EXAMINATION: VITAL SIGNS: Temperature is 98.2, pulse 95, blood pressure 108/81, pulse oximetry 95. HEENT: PERRLA. NECK: No JVD. No lymphadenopathy. CHEST: Clear to auscultation on palpation. CARDIOVASCULAR: S1, S2. No murmur. ABDOMEN: Soft. Hepatosplenomegaly. CENTRAL NERVOUS SYSTEM: Awake, alert, oriented x 3. No focal signs identified. SKIN: He does have some skin rashes, which look more like insect bites. LABORATORY DATA: His hemoglobin 13.7, white count is 5.1, platelets 94. His PT/INR is 13.4 and 1.3. His chemistry, total bilirubin 1.3, AST 123, alkaline phosphatase 191. Serum alcohol is 298. IMPRESSION: Mr. Huynh is a pleasant 52-year-old gentleman with history of alcohol use, hepatitis C, admitted to the hospital with increased depression and melenotic stool. He is hemodynamically stable at this time. Hepatomegaly. CT abdomen and pelvis done in the past showed portal hypertension, most likely alcoholic liver disease, melenotic stool, history of portal hypertension based on clinical exam and previous workup, possible esophageal varices, portal hypertension or peptic ulcer disease. No indication of active bleed at this time. RECOMMENDATIONS: Regular diet. Upper endoscopy with possible band ligation in the morning unless indicated otherwise. Protonix. Psychiatric consultation pending. Abdominal ultrasound. Further recommendation will depend on the patient's clinical status and the above results. I would like to thank Dr. Yancey for referring him to our office for consultation. If active bleeding, we will consider endoscopy on emergency basis. We will continue to follow the patient along with you. Thank you again will continue to follow the patient along with you. MD KAY Parmar/OBEY , 11:33 AM , 12:05 PM
--- NOTE | 2017-11-04 13:44 | P.CONPSY ---
Provisional Diagnosis Admission Date: November 03, 2017 23:32 Vancleave I.: Schizophrenia, alcohol use disorder Vancleave II.: Cluster B traits Vancleave III.: GI bleeding, hepatitis C History of Present Illness Service: Medicine Primary Care Provider: No Primary Care Physician Family Provider: No Primary Care Physician Chief Complaint: black stool History of Present Illness: The patient is a 52-year-old white man, homeless, unemployed, on SSI, with psychiatric history of schizophrenia, alcohol use disorder, previous psychiatric hospitalizations, multiple ER visits due to alcohol related issues, suicide attempts, noncompliant with medications, no outpatient care, with medical history hepatitis C, GI bleeding, who came to the emergency room with complaints of black tarry stool, also complaining of increased depression. Patient consulted to psychiatry. Case discussed with primary medical team. No collateral information available. On psychiatric evaluation today the patient is found in his room, he is calm, cooperative, reports ongoing symptomatology of depression in the context of current psychosocial situation. The patient reports that he is homeless, has no family and social support. He has been decompensated medically, he has realized that his life" really a mess". He reports hopelessness, helplessness, worthlessness, increased alcohol intake, poor appetite, weight loss, poor sleep at night, and persistent suicidal thoughts, with a plan of overdosing or jumping in front of a car. The patient is oriented 3, he denies auditory and visual hallucinations. He has suicidal thoughts, but no plan, contracted for safety in the medical floor. Review of Systems Constitutional: Denies anorexia, Denies body ache(s), Denies chills, Denies daytime sleepiness, Denies excessive sweating, Denies fatigue, Denies fever(s), Denies headache(s), Denies increased appetite, Denies lack of energy, Denies malaise, Denies night sweats, Denies weakness, Denies weight gain, Denies weight loss, Denies other Eyes: Denies blind spots, Denies blurry vision, Denies bulging eyes, Denies change in vision, Denies double vision, Denies discharge, Denies dry eyes, Denies floaters, Denies irritation, Denies itchy eyes, Denies loss of vision, Denies pain, Denies requires corrective lenses, Denies sensitivity to light, Denies other Ears, Nose, Mouth, and Throat: Denies abnormal hearing, Denies bleeding gums, Denies bad breath, Denies change in voice, Denies dental pain, Denies difficulty swallowing, Denies dizziness, Denies dry mouth, Denies ear discharge , Denies ear pain, Denies facial pain, Denies headache(s), Denies hearing loss, Denies hoarseness, Denies lip swelling, Denies nosebleed, Denies mouth lesions, Denies mouth pain, Denies nasal congestion, Denies nasal discharge, Denies nasal obstruction, Denies nasal trauma, Denies neck lump, Denies neck pain, Denies nose pain, Denies pain with swallowing, Denies poor balance, Denies post nasal drip, Denies ringing in the ears, Denies sinus pain, Denies sinus pressure , Denies sore throat, Denies throat swelling, Denies tongue swelling, Denies other Cardiovascular: Denies chest pain, Denies chest pain at rest, Denies chest pain with activity, Denies excessive sweating, Denies fainting, Denies fast heart rate, Denies foot swelling, Denies generalized swelling, Denies irregular heart rhythm, Denies leg pain with activity, Denies leg sores, Denies leg swelling, Denies lightheadedness, Denies radiating jaw, neck or arm pain, Denies rapid, pounding, or irregular heartbeat, Denies shortness of breath, Denies shortness of breath with activity, Denies shortness of breath when lying down, Denies shortness of breath causing sudden awakening, Denies slow heart rate, Denies other Respiratory: Denies change in phlegm color, Denies chest congestion, Denies cough, Denies coughing up blood, Denies excessive phlegm production, Denies pain on inspiration, Denies pain with cough, Denies shortness of breath, Denies shortness of breath with activity, Denies snoring, Denies stridor, Denies wheezing, Denies other Gastrointestinal: Denies abdominal pain, Denies belching, Denies black, tarry stools, Denies bloating, Denies bright, red blood in stools, Denies change in bowel habits, Denies constant urge to pass stool, Denies change in stools, Denies coffee ground vomit, Denies constipation, Denies cramping, Denies difficulty swallowing, Denies excessive passing of gas, Denies feeling full early, Denies heartburn, Denies incontinent of stools, Denies loose stools, Denies nausea, Denies pain with swallowing, Denies vomiting, Denies vomiting blood, Denies other Genitourinary: Denies blood in semen, Denies blood in urine, Denies decreased urination, Denies difficulty urinating, Denies difficulty with ejaculations, Denies erectile dysfunction, Denies genital lesions, Denies genital pain, Denies painful urination, Denies side pain, Denies frequent nighttime urination , Denies painful ejaculations, Denies penile discharge, Denies scrotal swelling , Denies testicle lump, Denies testicle pain, Denies urinary frequency, Denies urinary hesitancy, Denies urinary incontinence, Denies urinary urgency, Denies other Skin/Breast: Denies acne, Denies bleeding lesions, Denies boil, Denies breast swelling, Denies breast skin changes, Denies breast pain, Denies breast lump, Denies change in breast shape, Denies change in hair, Denies change in skin color, Denies changing lesions, Denies dry skin, Denies excessive hair growth, Denies hair loss, Denies itching, Denies lesions, Denies nail changes, Denies new lesions, Denies nipple discharge, Denies non-healing lesions, Denies redness , Denies sensitivity to light, Denies rash, Denies skin pain, Denies skin ulcer , Denies sores, Denies stretch solomon, Denies unusual bruising, Denies wounds, Denies yellowing of the skin, Denies other Neurologic: Denies abnormal hearing, Denies abnormal movements, Denies abnormal speech, Denies abnormal walking, Denies behavioral changes, Denies burning sensations, Denies confusion, Denies dizziness, Denies fainting, Denies frequent falls, Denies headache(s), Denies lack of coordination, Denies localized weakness, Denies loss of vision, Denies memory loss, Denies numbness, Denies other visual disturbances, Denies radiating pain, Denies restless legs, Denies convulsions, Denies seizure-like activity, Denies sensory deficit, Denies tingling, Denies tingling/numbness/burning sensations, Denies tremor(s), Denies unsteadiness, Denies weakness, Denies other Psychiatric: Reports lack of enjoyment, Reports mood swings, Reports thoughts of hurting/killing yourself PMFSH - History History Provided By: Patient - Medical History Medical History: Medical History (Last Reviewed 11/03/17 @ 23:09 by Jenny Johnson) Bipolar disorder Collapsed lung Hepatitis C Schizophrenia Seizure due to alcohol withdrawal - Surgical History Surgical History: Surgical History (Last Reviewed 11/03/17 @ 23:09 by Jenny Johnson) History of appendectomy - Tobacco History Tobacco Use In Past 30 Days: Yes Smoking Status: Heavy tobacco smoker Tobacco Type: Cigarettes - Alcohol History How Often Do You Have a Drink Containing Alcohol: 4 or more times a week - Substance Use History Substance History: No History of Abuse - Travel History Recent Travel in the [place] Within the Last 8 Weeks: No Recent Travel Out of the Country Within the Last 8 Weeks: No - Immunization History Tetanus Immunization: Unsure Hx Influenza Vaccine This Season: No Medications and Allergies Active Medications: Active Medications Flumazenil (Romazecon Inj) 0.2 mg IV.PUSH Q1M PRN PRN Reason: OVERSEDATION Haloperidol (Haldol) 2 mg PO BID DOUGLAS Haloperidol Lactate (Haldol Inj) 1 mg IV.PUSH Q15M PRN PRN Reason: for severe agitation Thiamine HCl 100 mg/ Sodium (Chloride) 101 mls @ 100 mls/hr IV.SIG DAILY DOUGLAS Sodium Chloride (Ns Inj) 1,000 mls @ 84 mls/hr IV.CONT .[id number] DOUGLAS Lorazepam (Ativan) 1 mg PO Q4H PRN PRN Reason: for CIWA 8-10 Lorazepam (Ativan) 2 mg PO Q2H PRN PRN Reason: for CIWA 11-14 Lorazepam (Ativan Inj) 2 mg IV.PUSH Q2H PRN PRN Reason: for CIWA 11-14 Lorazepam (Ativan Inj) 2 mg IV.PUSH Q1H PRN PRN Reason: for CIWA 15-20 Lorazepam (Ativan Inj) 2 mg IV.PUSH Q15M PRN PRN Reason: for CIWA > 20 Lorazepam (Ativan Inj) 1 mg IV.PUSH Q4H PRN PRN Reason: for CIWA 8-10 Pantoprazole Sodium (Protonix Inj) 40 mg IV.PUSH BID DOUGLAS Sodium Chloride (Ns Flush) 2 ml IV.FLUSH PRN PRN PRN Reason: FLUSH AFTER USING IV ACCESS Sodium Chloride (Ns Flush) 2 ml IV.FLUSH BID DOUGLAS Sodium Chloride (Ns Flush) 2 ml IV.FLUSH PRN PRN PRN Reason: FLUSH AFTER USING IV ACCESS Last Admin: 11/04/17 00:58 Dose: 2 ml Allergies Allergy/AdvReac Type Severity Reaction Status Date / Time acetaminophen Allergy Unknown Verified 10/28/17 06:42 propoxyphene Allergy Unknown Verified 10/28/17 06:42 Home Medications Medication Instructions Recorded Confirmed Type No Known Home Medications 11/03/17 11/03/17 History Exam Vital signs: Vital Signs 11/03/17 21:50 11/03/17 22:14 11/03/17 23:23 Temperature 98.2 F Pulse Rate 95 H 85 Respiratory Rate 20 18 Blood Pressure 108/81 111/70 Pulse Oximetry 95 95 96 11/04/17 05:00 11/04/17 09:24 11/04/17 10:03 Temperature 98.1 F Pulse Rate 76 84 78 Respiratory Rate 20 16 18 Blood Pressure 144/89 H 155/83 H Pulse Oximetry 95 95 11/04/17 12:00 Temperature 97.4 F L Pulse Rate 80 Respiratory Rate 18 Blood Pressure 163/83 H Pulse Oximetry 95 Intake & Output 11/03/17 11/04/17 11/04/17 18:59 06:59 18:59 Intake Total 1050 / 1050 Output Total 700 / 700 Balance 350 / 350 Weight 72.575 kg Intake: IV 1050 / 1050 Protonix Inj 80 MG In NS Inj 50 50 / 50 ML @ 600 mls/hr IV.SIG BOLUS ONE Rx#:[id number] NS Inj 1,000 ML @ Wide Open IV. 1000 / 1000 SIG BOLUS ONE Rx#:[id number] Output: Urine 700 / 700 Other: Date of Last Bowel Movement 11/03/17 Narrative: No EPS, no tremors, no psychomotor agitation or retardation - Constitutional no acute distress - Routine HEENT Exam Head: Present: normocephalic, atraumatic, abrasion Mental Status Examination Appearance: Dirty, Malodorous Consciousness: Alert Orientation: x4 Speech: Unremarkable Language: Adequate Fund of Knowledge: Adequate Attention and Concentration: Adequate Memory: Unremarkable Mood: Sad Affect: Sad Thought Process & Associations: Intact Thought Content: Appropriate Hallucination Type: None Delusion Type: None Suicidal Ideation: Yes Suicidal Plan: No Suicidal Intention: No Homicidal Ideation: No Homicidal Plan: No Homicidal Intention: No Insight: Poor Judgment: Poor Assessment and Plan - Assessment (1) Schizophrenia Code(s): F20.9 - Schizophrenia, unspecified Status: Acute - Plan Plan: On psychiatric evaluation today the patient reports symptomatology of depression consisting and poor appetite, decreased energy, difficulty sleeping at night, anhedonia, hopelessness, helplessness, suicidal thoughts, no specific plan. The patient also reports hearing voices episodically telling him to kill himself, and being paranoid in the streets. This is a patient with psychiatric history of schizophrenia, severe alcohol use disorder, multiple psychiatric hospitalizations, frequent visitor of our ER secondary to alcoholism, suicide attempts. Given his elevated risk of danger to self, he is history of noncompliant with medications, patient benefits of psychiatric hospitalization for stabilization. I am going start Haldol 2 mg twice daily for psychosis. Effexor 37.5 mg daily for depression. Continue CIWA. This presentation could be related with depression/schizophrenia decompensation, but also personality pathology and conscious simulation are high in the differential. Brief supportive psychotherapy provided. Psychoeducation offered. To be transferred to psychiatry once medically stable. Justification for Continued Inpatient Stay: Patient would be admitted in psychiatry due to depression and suicidal ideation
[2017-11-04] MEDS: Thiamine Inj 100 MG in Sodium Chlor 0.9% Inj 100 ML IV.SIG SCH (14:45)
[2017-11-04] MEDS: LORazepam 1 MG Tablet PO PRN ×2 (14:54→19:21)
[2017-11-04] MEDS: Haloperidol 1 MG Tablet PO SCH ×2 (14:56→21:22)
[2017-11-04 15:54] LABS: Hemoglobin 15.3 gm/dL (13.0-17.0)
[2017-11-04] MEDS ORDERED: Promethazine 25 MG Supp RECTAL PRN (20:37)
[2017-11-04] MEDS: Pantoprazole Inj 40 MG Vial IV.PUSH SCH (21:20)
[2017-11-04] MEDS: Sod Chloride 0.9% Inj 1,000 ML IV.CONT SCH ×3 (21:20→23:51)
[2017-11-05] MEDS: LORazepam 1 MG Tablet PO PRN ×3 (00:16→09:41)
[2017-11-05] MEDS: Pantoprazole Inj 40 MG Vial IV.PUSH SCH ×3 (00:29→19:52)
[2017-11-05] MEDS: Haloperidol 1 MG Tablet PO SCH ×2 (09:17→19:50)
[2017-11-05] MEDS: Sod Chloride 0.9% Inj 1,000 ML IV.CONT SCH (09:41)
[2017-11-05] MEDS: Thiamine Inj 100 MG in Sodium Chlor 0.9% Inj 100 ML IV.SIG SCH (11:06)
--- NOTE | 2017-11-05 11:59 | P.PNIM ---
Subjective Interval history: in no acute distress. has minimal abdominal discomfort. feels a little bit ' shaky'. awaiting egd. Physical Exam Vital signs: Vital Signs 11/04/17 12:00 11/04/17 15:56 11/04/17 16:00 Temperature 97.4 F L 97.3 F L 97.3 F L Pulse Rate 80 69 69 Respiratory Rate 18 18 18 Blood Pressure 163/83 H 149/85 H 149/85 H Pulse Oximetry 95 95 95 11/04/17 20:00 11/05/17 00:00 11/05/17 04:00 Temperature 97.3 F L 97.7 F 96.8 F L Pulse Rate 74 62 83 Respiratory Rate 20 20 20 Blood Pressure 139/76 135/70 142/83 H Pulse Oximetry 95 98 97 11/05/17 07:50 Temperature 98.4 F Pulse Rate 67 Respiratory Rate 20 Blood Pressure 132/78 Pulse Oximetry 96 Intake & Output 11/04/17 11/05/17 11/05/17 18:59 06:59 18:59 Intake Total 360 / 360 0 / 0 1051 / 1051 Balance 360 / 360 0 / 0 1051 / 1051 Weight 65.4 kg 65.1 kg Intake: IV 1051 / 1051 NS Inj 1,000 ML @ 84 mls/hr IV. 950 / 950 CONT .[id number] DOUGLAS Rx#: [id number] Thiamine Inj 100 MG In NS Inj 101 / 101 100 ML @ 100 mls/hr IV.SIG DAILY DOUGLAS Rx#:[id number] Oral 360 / 360 0 / 0 Other: # Voids 3 2 # Bowel Movements 1 Weight On Admission 65.4 kg - Constitutional no acute distress - Routine Respiratory Exam Present: CTA bilaterally - Routine Cardiovascular Exam Present: RRR - Routine Abdominal Exam Present: soft Results - Labs CBC & Chem 7: 11/04/17 15:45 11/03/17 22:20 Laboratory Results - last 24 hr 11/03/17 11/04/17 22:45 15:45 Hgb 15.3 Hct 46.0 Butalbital Confirm Cancelled Opiates Screen Cancelled Codeine Confirmation Cancelled Morphine Cancelled Hydrocodone Confirm Cancelled Oxycodone Cancelled Hydromorphone Cancelled Bld Barbiturates Scrn Cancelled Phencyclidine Screen Cancelled Phencyclidine (GC/MS) Cancelled Amphetamines Screen Cancelled Amphetamines Confirm Cancelled Methamphetamine Confirm Cancelled MDA (GC/MS) Cancelled MDMA (GC/MS) Cancelled Amobarbital Cancelled Butabarbital Cancelled Pentobarbital Confirm Cancelled Phenobarbital Confirm Cancelled Secobarbital Confirm Cancelled Alprazolam Cancelled Benzodiazepines Screen Cancelled Nordiazepam Confirm Cancelled Desalkylfluraze Cnfrm Cancelled Lorazepam Cancelled Oxazepam Confirmation Cancelled Bld Cocaine/Metab Scrn Cancelled Cocaine Confirmation Cancelled Cocaethylene Confirm Cancelled Benzoylecgonine Confrm Cancelled Ecgonine Methyl Annette Cancelled Marijuana (THC) Screen Cancelled THC Confirmation Cancelled Carboxy THC Confirm Cancelled Drug Screen Comment Cancelled Assessment and Plan - Assessment (1) Melena Code(s): K92.1 - Melena Status: Acute Plan: H/H stable- will continue with PPI- monitor H/H-GI consulted and plan for EGD today. (2) Bipolar disorder Code(s): F31.9 - Bipolar disorder, unspecified Status: Chronic Plan: psych consulted- previoulsy d/w ; recommended psych admission. (3) Alcohol abuse Code(s): F10.10 - Alcohol abuse, uncomplicated Status: Chronic Plan: started on CIWA protocol- continue with thiamine.advised to stop drinking. - Plan Discharge Planning: dc to the psych unit when cleared by GI.
[2017-11-05] MEDS ORDERED: Chlorhexidine Gluconate 2% 1 Pack (2 Cloths) TOPICAL SCH (16:00)
[2017-11-05] MEDS ORDERED: Sodium Chlor 0.9% Inj 500 ML IV.SIG SCH (16:00)
[2017-11-05] MEDS ORDERED: Metoprolol Tartrate 25 MG Tablet PO SCH (16:00)
[2017-11-05] MEDS ORDERED: Succinylcholine Inj 200 MG/10 ML Vial ONE (16:28)
--- NOTE | 2017-11-05 19:26 | ECG ---
Date Performed: 11/05/2017 Time Performed: 15:49:20 PTAGE: 52 years EKG: SINUS BRADYCARDIA NONSPECIFIC T-WAVE ABNORMALITY BORDERLINE ECG Compared to prior electroca rdiogram, Nonspecific T wave changes are more marked . PREVIOUS TRACING : 10/04/2017 23.53 DOCTOR: Jameel Loving Interpretating Date/Time 11/05/2017 19:25:35
[2017-11-06] MEDS: Haloperidol 1 MG Tablet PO SCH ×2 (02:22→08:31)
[2017-11-06] MEDS: Pantoprazole Inj 40 MG Vial IV.PUSH SCH ×2 (02:23→08:33)
[2017-11-06] MEDS: Sod Chloride 0.9% Inj 1,000 ML IV.CONT SCH ×2 (02:34)
--- NOTE | 2017-11-06 08:14 | P.PN ---
Subjective Interval history: in no acute distress. resting comfortably. denies pain. Physical Exam Vital signs: Vital Signs 11/05/17 12:00 11/05/17 15:00 11/05/17 15:35 Temperature 97.6 F 97.6 F 98.6 F Pulse Rate 67 67 62 Respiratory Rate 20 20 16 Blood Pressure 132/76 148/79 H 152/88 H Pulse Oximetry 97 97 11/05/17 17:13 11/05/17 20:00 11/06/17 00:00 Temperature 97.5 F L 97.2 F L Pulse Rate 78 68 74 Respiratory Rate 16 20 20 Blood Pressure 152/83 H 175/90 H 157/99 H Pulse Oximetry 99 96 97 Intake & Output 11/05/17 11/06/17 11/06/17 18:59 06:59 18:59 Intake Total 1792 / 1792 1340 / 1340 Output Total 300 / 300 Balance 1492 / 1492 1340 / 1340 Weight 65 kg Intake: IV 1051 / 1051 1100 / 1100 NS Inj 1,000 ML @ 84 mls/hr IV. 950 / 950 1000 / 1000 CONT .[id number] DOUGLAS Rx#: [id number] Thiamine Inj 100 MG In NS Inj 101 / 101 100 / 100 100 ML @ 100 mls/hr IV.SIG DAILY DOUGLAS Rx#:[id number] Oral 441 / 441 240 / 240 Other 300 / 300 Output: Urine 300 / 300 Other: # Voids 2 3 Date of Last Bowel Movement 11/03/17 # Bowel Movements 0 1 - Constitutional no acute distress - Routine Respiratory Exam Present: CTA bilaterally - Routine Cardiovascular Exam Present: RRR - Routine Abdominal Exam Present: soft - Routine Neurological Exam Present: alert Results - Labs CBC & Chem 7: 11/04/17 15:45 11/03/17 22:20 Laboratory Results - last 24 hr 11/03/17 22:45 Butalbital Confirm Cancelled Opiates Screen Cancelled Codeine Confirmation Cancelled Morphine Cancelled Hydrocodone Confirm Cancelled Oxycodone Cancelled Hydromorphone Cancelled Bld Barbiturates Scrn Cancelled Phencyclidine Screen Cancelled Phencyclidine (GC/MS) Cancelled Amphetamines Screen Cancelled Amphetamines Confirm Cancelled Methamphetamine Confirm Cancelled MDA (GC/MS) Cancelled MDMA (GC/MS) Cancelled Amobarbital Cancelled Butabarbital Cancelled Pentobarbital Confirm Cancelled Phenobarbital Confirm Cancelled Secobarbital Confirm Cancelled Alprazolam Cancelled Benzodiazepines Screen Cancelled Nordiazepam Confirm Cancelled Desalkylfluraze Cnfrm Cancelled Lorazepam Cancelled Oxazepam Confirmation Cancelled Bld Cocaine/Metab Scrn Cancelled Cocaine Confirmation Cancelled Cocaethylene Confirm Cancelled Benzoylecgonine Confrm Cancelled Ecgonine Methyl Annette Cancelled Marijuana (THC) Screen Cancelled THC Confirmation Cancelled Carboxy THC Confirm Cancelled Drug Screen Comment Cancelled Assessment and Plan - Assessment (1) Melena Code(s): K92.1 - Melena Status: Acute Plan: H/H stable- GI consulted- s/p EGD with band ligation of varices. (2) Bipolar disorder Code(s): F31.9 - Bipolar disorder, unspecified Status: Chronic Plan: psych consulted- recommended psych admission. (3) Alcohol abuse Code(s): F10.10 - Alcohol abuse, uncomplicated Status: Chronic Plan: started on CIWA protocol- continue with thiamine.advised to stop drinking. - Plan Discharge Planning: dc to the psych unit when cleared by GI.
[2017-11-06] MEDS: Thiamine Inj 100 MG in Sodium Chlor 0.9% Inj 100 ML IV.SIG SCH (08:38)
[2017-11-06] MEDS ORDERED: Nadolol 20 MG Tablet PO SCH (09:00)
[2017-11-06 11:11] LABS: Hematocrit 40.1 % (39.0-51.0); Hemoglobin 13.8 gm/dL (13.0-17.0)
--- NOTE | 2017-11-06 15:02 | P.DS ---
Date of admission: 11/03/17 23:32 Primary care physician: No Primary Care Physician Brief History from admission: patient is a 52 y/o male , homeless, with history of depression, with chronic alcohol abuse, presented to ER with black stools. he says that it's been going on for a couple of days. he denies any abdominal pain, nausea or vomiting. he says that he has a history of depression but he's not taking any medications. he denies any suicidal thoughts. DS: Diagnosis - Discharge Diagnosis (1) Melena Status: Acute (2) Bipolar disorder Status: Chronic (3) Alcohol abuse Status: Chronic DS: Medications - Discharge Medications Prescriptions: multivitamin [Men's Multi-Vitamin] 1 tab PO DAILY 30 Days #30 tab nadolol 40 mg PO DAILY 30 Days #60 tab pantoprazole [Protonix] 40 mg PO DAILY #30 tab thiamine HCl (vitamin B1) 100 mg PO DAILY 30 Days #30 tab DS: Summary Hospital Course: patient was admitted with black stools and suicidal ideation. he was seen by GI and psych. he underwent EGD and banding and started on Nadolol. psych recommended psych admission. H/H remained stable. he will be discharged to the psych unit with f/u with GI and psych. - Time Spent with Patient Total time spent providing and/or coordinating discharge services: - Quality: VTE Deep Vein Thrombosis/Pulmonary Embolism Present on Admission: No Exam Vital signs: Vital Signs 11/05/17 15:35 11/05/17 17:13 11/05/17 20:00 Temperature 98.6 F 97.5 F L Pulse Rate 62 78 68 Respiratory Rate 16 16 20 Blood Pressure 152/88 H 152/83 H 175/90 H Pulse Oximetry 99 96 11/06/17 00:00 11/06/17 08:00 11/06/17 12:00 Temperature 97.2 F L 97.6 F 97 F L Pulse Rate 74 77 Respiratory Rate 20 16 18 Blood Pressure 157/99 H 132/78 129/78 Pulse Oximetry 97 96 95 Intake & Output 11/05/17 11/06/17 11/06/17 18:59 06:59 18:59 Intake Total 1792 / 1792 1340 / 1340 202 / 202 Output Total 300 / 300 Balance 1492 / 1492 1340 / 1340 202 / 202 Weight 65 kg Intake: IV 1051 / 1051 1100 / 1100 202 / 202 NS Inj 1,000 ML @ 84 mls/hr IV. 950 / 950 1000 / 1000 CONT .[id number] DOUGLAS Rx#: [id number] Thiamine Inj 100 MG In NS Inj 101 / 101 100 / 100 202 / 202 100 ML @ 100 mls/hr IV.SIG DAILY DOUGLAS Rx#:[id number] Oral 441 / 441 240 / 240 Other 300 / 300 Output: Urine 300 / 300 Other: # Voids 2 3 Date of Last Bowel Movement 11/03/17 # Bowel Movements 0 1 Results Procedures completed during hospitalization: EGD Labs on day of discharge: Labs from last 24 hours 11/06/17 10:50 Hgb 13.8 Hct 40.1 - Impressions ITS Impressions Abdomen/Pelvis CT 11/03/17 22:14 CONCLUSION: 1. No acute mallet. 2. Cirrhosis. 3. Mild splenomegaly. Discharge Plan - Discharge Disposition Patient Disposition: 64 Disc To [facility] - Discharge Condition Condition: Stable - Discharge Order Discharge Orders: Discharge Order (Routine); Ordered 11/06/17 Ordered By: Helder Yancey - Physicians Team Primary Care Provider: Primary Care Hoda Castro Attending Provider: Helder Yancey Other Providers: Angy Todd MD ; Sim Aguilar MD
== END 2017-11-06 20:00 ==
LOC: PH3 21:46 → PHED 21:46 → PHEDA 21:46 → PHEDH 11-04 03:35 → PH3 11-04 09:05
PROVIDERS: ADMIT Internal Medicine; ATTEND Internal Medicine

== ENCOUNTER 2017-11-06 20:00 | Inpatient (IN) ==
[2017-11-07] MEDS ORDERED: Aluminum/Magnesium/Simethacone Susp 30 ML UDC PO PRN (08:55)
[2017-11-07] MEDS ORDERED: Haloperidol Inj 5 MG/ML Ampul IV.PUSH PRN (09:03)
[2017-11-07] MEDS: LORazepam 1 MG Tablet PO PRN (12:56)
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
[2017-11-07] MEDS: Venlafaxine XR 37.5 MG Capsule PO SCH (16:32)
[2017-11-08] MEDS: Venlafaxine XR 37.5 MG Capsule PO SCH (10:13)
--- NOTE | 2017-11-08 11:09 | P.PNPSY ---
Subjective Remarks: Patient seen for follow, chart reviewed. Discussion nursing staff reported the patient slept better last evening continues to have low CIWA scores, improved appetite. Patient was found lying hospital bed noted be calm and cooperative. Patient states that he slept somewhat better last evening, his mood has been "so -so broken" continues to report feeling depressed but denying any suicide ideations at this time. Patient continues report auditory hallucinations " still there" but reports becoming less intense. Patient also reports having improved appetite recently. Review of Systems All other systems reviewed negative except as stated in HPI Mental Status Examination Appearance: Disheveled Consciousness: Alert Orientation: Person, Place, Date/Time Motor Activity: Normal gait Speech: Slow Language: Adequate Fund of Knowledge: Inadequate Attention and Concentration: Adequate Memory: Unremarkable Mood: Sad Affect: Sad Thought Process & Associations: Intact, Linear Thought Content: Hallucinations Hallucination Type: Auditory Delusion Type: None Suicidal Ideation: Yes (Lessening) Suicidal Plan: No Suicidal Intention: No Homicidal Ideation: No Homicidal Plan: No Homicidal Intention: No Insight: Fair Judgment: Impulsive Assessment and Plan - Assessment (1) Alcohol abuse Code(s): F10.10 - Alcohol abuse, uncomplicated Status: Chronic (2) Schizophrenia Code(s): F20.9 - Schizophrenia, unspecified Status: Acute - Plan Plan: Patient continues with suicidal ideations which are lessening, continues with depressed mood which is improving as well as auditory hallucinations. We will continue current treatment as patient was restarted on Haldol, we will continue to monitor mood and behavior. Discharge planning in progress. Justification for Continued Inpatient Stay: At risk for further decompensation if at lower level of care
[2017-11-09] MEDS ORDERED: Aluminum/Magnesium/Simethacone Susp 30 ML UDC PO PRN (14:21)
[2017-11-09] MEDS ORDERED: Bisacodyl 10 MG Supp RECTAL PRN (14:21)
--- NOTE | 2017-11-09 14:30 | P.PNPSY ---
Subjective Remarks: Patient initially seen by Dr. Beck who did the admitting H&P. I have completed the psychiatric admission template orders. Patient seen by me today with nurse Felder, chart reviewed, patient compliant medications. Patient acknowledges being an alcoholic with multiple year history of various issues related to detoxes and rehab. He moved here from [place] to be near his mother. Though they live independently he has been homeless for a period of time. He denies suicidality at the present time. Acknowledges auditory hallucinations slowly states they are diminishing fairly quickly. At this time patient is here on a voluntary basis I agree will continue on a voluntary basis I also discussed placement issues sober living facilities versus [facility] Review of Systems All other systems reviewed negative except as stated in HPI Mental Status Examination Appearance: Disheveled (Markedly improved) Consciousness: Alert Orientation: Person, Place, Date/Time Motor Activity: Normal gait Speech: Unremarkable Language: Adequate Fund of Knowledge: Adequate Attention and Concentration: Adequate Memory: Unremarkable Mood: Other (Euthymic to mildly dysphoric) Affect: Other (Slight decreased range and intensity) Thought Process & Associations: Intact, Linear Thought Content: Appropriate Hallucination Type: Auditory (Diminishing) Delusion Type: None Suicidal Ideation: No Suicidal Plan: No Suicidal Intention: No Homicidal Ideation: No Homicidal Plan: No Homicidal Intention: No Insight: Fair Judgment: Impulsive Assessment and Plan - Assessment (1) Alcohol abuse Code(s): F10.10 - Alcohol abuse, uncomplicated Status: Chronic (2) Schizophrenia Code(s): F20.9 - Schizophrenia, unspecified Status: Acute - Plan Plan: Patient is showing some diminishing of his psychosis with auditory hallucinations still persists. He appears cognitively intact though at times a little ambivalent for now continue treatment Justification for Continued Inpatient Stay: At this time patient would decompensate place a lower level of care Discharge Planning: To be determined (2) Schizophrenia Qualifiers: Schizophrenia type: paranoid schizophrenia Qualified Code(s): F20.0 - Paranoid schizophrenia
[2017-11-09] MEDS: LORazepam 1 MG Tablet PO PRN (17:46)
[2017-11-09] MEDS: Senna/Docusate Sodium 8.6/50 MG Tablet PO SCH (21:15)
[2017-11-09] MEDS: Venlafaxine XR 37.5 MG Capsule PO SCH (22:28)
[2017-11-10] MEDS: Venlafaxine XR 37.5 MG Capsule PO SCH (09:20)
[2017-11-10] MEDS: Senna/Docusate Sodium 8.6/50 MG Tablet PO SCH ×2 (09:20→21:42)
[2017-11-10 11:49] LABS: Anion Gap 8 meq/L (5-15); Blood Urea Nitrogen 11 mg/dL (7-18); Calcium 9.3 mg/dL (8.5-10.1); Carbon Dioxide 27.7 meq/L (21.0-32.0); Chloride 103 meq/L (98-107); Glomerular Filtration Rate Greater Than 89 mL/min (>89); Glucose,Random 87 mg/dL (74-106); Potassium 3.6 meq/L (3.5-5.1); Sodium 139 meq/L (136-145)
[2017-11-10 11:51] LABS: Cholesterol 116 mg/dL (120-200)
[2017-11-10 11:53] LABS: Chol/HDL Ratio 2.79 Ratio; HDL Cholesterol 41.5 mg/dL (40.0-60.0); LDL Cholesterol,Calculated 58 mg/dL (0-99); Triglycerides 84 mg/dL (42-150)
--- NOTE | 2017-11-10 12:33 | P.PNPSY ---
Subjective Remarks: Patient seen in the persaud with nurse Felder, chart reviewed, patient complaint medications, patient discussed with staff. Patient calm cooperative acknowledges being homeless for 6+ months. He denies suicidality at this time is vague about any auditory abnormalities. He wishes for a rehab program but they mentioned that he needs to focus on perhaps finding a sober living facility or working with family members. For now continue treatment Review of Systems All other systems reviewed negative except as stated in HPI Mental Status Examination Appearance: Disheveled (Markedly improved) Consciousness: Alert Orientation: Person, Place, Date/Time Motor Activity: Normal gait Speech: Unremarkable Language: Adequate Fund of Knowledge: Adequate Attention and Concentration: Adequate Memory: Unremarkable Mood: Other (Euthymic to mildly dysphoric) Affect: Other (Slight decreased range and intensity) Thought Process & Associations: Intact, Linear Thought Content: Appropriate Hallucination Type: Auditory (Diminishing) Delusion Type: None Suicidal Ideation: No Suicidal Plan: No Suicidal Intention: No Homicidal Ideation: No Homicidal Plan: No Homicidal Intention: No Insight: Fair Judgment: Impulsive Assessment and Plan - Assessment (1) Alcohol abuse Code(s): F10.10 - Alcohol abuse, uncomplicated Status: Chronic (2) Schizophrenia Code(s): F20.9 - Schizophrenia, unspecified Status: Acute - Plan Plan: Patient continues to improve with his focus and his affect. He is showing better eye contact. He denies suicidality or voices at the present time is some may be some vague auditory problems occurring. We need to look at placement for this gentleman with a P with family or perhaps a sober living Justification for Continued Inpatient Stay: At this time patient would decompensate a place to a lower level of care Discharge Planning: To be determined (2) Schizophrenia Qualifiers: Schizophrenia type: paranoid schizophrenia Qualified Code(s): F20.0 - Paranoid schizophrenia
[2017-11-10 16:28] LABS: Hemoglobin A1c 4.2 % (4.3-6.0)
[2017-11-10] MEDS: LORazepam 1 MG Tablet PO PRN ×2 (17:40→21:42)
[2017-11-11] MEDS: Senna/Docusate Sodium 8.6/50 MG Tablet PO SCH ×2 (09:14→20:52)
[2017-11-11] MEDS: Venlafaxine XR 37.5 MG Capsule PO SCH (09:16)
--- NOTE | 2017-11-11 10:48 | P.PNPSY ---
Subjective Remarks: Patient seen in his room with floor staff, chart reviewed, patient compliant medication. Patient continues to isolate somewhat blue does get out for some activities and for meals, continues to do well with his ADLs. He states the auditory hallucinations are not R diminishing. He now denies suicidality. We will increase Haldol to 3 mg a.m. 4 mg at bedtime counselor today will give patient referral sources for sober living resources. Review of Systems All other systems reviewed negative except as stated in HPI Mental Status Examination Appearance: Appropriate Consciousness: Alert Orientation: Person, Place, Date/Time Motor Activity: Normal gait Speech: Unremarkable Language: Adequate Fund of Knowledge: Adequate Attention and Concentration: Adequate Memory: Unremarkable Mood: Other (Euthymic to mildly dysphoric) Affect: Other (Slight decreased range and intensity) Thought Process & Associations: Intact Thought Content: Appropriate Hallucination Type: Auditory (Diminishing) Delusion Type: None Suicidal Ideation: No Suicidal Plan: No Suicidal Intention: No Homicidal Ideation: No Homicidal Plan: No Homicidal Intention: No Insight: Fair Judgment: Impulsive Assessment and Plan - Assessment (1) Alcohol abuse Code(s): F10.10 - Alcohol abuse, uncomplicated Status: Chronic (2) Schizophrenia Code(s): F20.9 - Schizophrenia, unspecified Status: Acute - Plan Plan: Patient continues with vague psychotic features though there diminishing. Please see medication adjustment above he appears to continue to be willing to look a usp houses and sober living facilities Justification for Continued Inpatient Stay: At this time patient would decompensate a place to a lower level of care Discharge Planning: To be determined (2) Schizophrenia Qualifiers: Schizophrenia type: paranoid schizophrenia Qualified Code(s): F20.0 - Paranoid schizophrenia
[2017-11-11] MEDS: LORazepam 1 MG Tablet PO PRN ×2 (12:17→19:32)
[2017-11-12] MEDS: Senna/Docusate Sodium 8.6/50 MG Tablet PO SCH ×2 (09:28→20:08)
[2017-11-12] MEDS: Venlafaxine XR 37.5 MG Capsule PO SCH (09:28)
[2017-11-12] MEDS: Haloperidol 1 MG Tablet PO SCH (09:29)
[2017-11-12] MEDS: LORazepam 1 MG Tablet PO PRN ×2 (10:24→17:18)
--- NOTE | 2017-11-12 12:12 | P.PNPSY ---
Subjective Remarks: Patient seen in his room with RN, chart reviewed, patient compliant medications. Patient laying in bed calm mood is somewhat sad face though status states he is on and participating somewhat in the milieu. He is been no behavioral problems. He denies voices today. He has been exploring various sober living options including [facility] But they have a restriction on any medication use. For now continue treatment Review of Systems All other systems reviewed negative except as stated in HPI Mental Status Examination Appearance: Appropriate Consciousness: Alert Orientation: Person, Place, Date/Time Motor Activity: Normal gait Speech: Unremarkable Language: Adequate Fund of Knowledge: Adequate Attention and Concentration: Adequate Memory: Unremarkable Mood: Other (Euthymic to mildly dysphoric) Affect: Other (Slight decreased range and intensity) Thought Process & Associations: Intact Thought Content: Appropriate Hallucination Type: Auditory (Denies at this time) Delusion Type: None Suicidal Ideation: No Suicidal Plan: No Suicidal Intention: No Homicidal Ideation: No Homicidal Plan: No Homicidal Intention: No Insight: Fair Judgment: Impulsive Assessment and Plan - Assessment (1) Alcohol abuse Code(s): F10.10 - Alcohol abuse, uncomplicated Status: Chronic (2) Schizophrenia Code(s): F20.9 - Schizophrenia, unspecified Status: Acute - Plan Plan: Patient continues to slowly improve there is still a depression this is anxiety related to placement in available programs for this gentleman. For now continue treatment Justification for Continued Inpatient Stay: At this time patient would decompensate a place to the lower level of care Discharge Planning: To be determined (2) Schizophrenia Qualifiers: Schizophrenia type: paranoid schizophrenia Qualified Code(s): F20.0 - Paranoid schizophrenia
[2017-11-13] MEDS: LORazepam 1 MG Tablet PO PRN ×2 (02:27→10:17)
[2017-11-13] MEDS: Venlafaxine XR 37.5 MG Capsule PO SCH (08:42)
[2017-11-13] MEDS: Senna/Docusate Sodium 8.6/50 MG Tablet PO SCH ×2 (08:42→21:31)
[2017-11-13] MEDS: Haloperidol 1 MG Tablet PO SCH (08:43)
--- NOTE | 2017-11-13 13:45 | P.PNPSY ---
Subjective Remarks: Patient seen in his room with nurse Charline, chart reviewed, patient compliant medication. Patient laying calmly in bed denies suicidality voices or visions. He states he continues to try to find sober living facilities. 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 He states he thinks he does have his card with them. We will have him check that. And then attempt to call his facility Review of Systems All other systems reviewed negative except as stated in HPI Mental Status Examination Appearance: Appropriate Consciousness: Alert Orientation: Person, Place, Date/Time Motor Activity: Normal gait Speech: Unremarkable Language: Adequate Fund of Knowledge: Adequate Attention and Concentration: Adequate Memory: Unremarkable Mood: Other (Euthymic to mildly dysphoric) Affect: Other (Slight decreased range and intensity) Thought Process & Associations: Intact Thought Content: Appropriate Hallucination Type: Auditory (Denies at this time) Delusion Type: None Suicidal Ideation: No Suicidal Plan: No Suicidal Intention: No Homicidal Ideation: No Homicidal Plan: No Homicidal Intention: No Insight: Fair Judgment: Impulsive Assessment and Plan - Assessment (1) Alcohol abuse Code(s): F10.10 - Alcohol abuse, uncomplicated Status: Chronic (2) Schizophrenia Code(s): F20.9 - Schizophrenia, unspecified Status: Acute - Plan Plan: Patient continues to score the ciwa protocol, though he now denies suicidality or voices. He is compliant with medication, and appears to be attempting to locate a sober living facility that would accept him without having an identification card Justification for Continued Inpatient Stay: At this time patient would decompensate a place to the lower level of care Discharge Planning: To be determined (2) Schizophrenia Qualifiers: Schizophrenia type: paranoid schizophrenia Qualified Code(s): F20.0 - Paranoid schizophrenia
[2017-11-14] MEDS: Senna/Docusate Sodium 8.6/50 MG Tablet PO SCH ×2 (09:22→20:44)
[2017-11-14] MEDS: Venlafaxine XR 37.5 MG Capsule PO SCH (09:22)
[2017-11-14] MEDS: Haloperidol 1 MG Tablet PO SCH (09:23)
[2017-11-14] MEDS: LORazepam 1 MG Tablet PO PRN (12:05)
--- NOTE | 2017-11-14 13:25 | P.PNPSY ---
Subjective Remarks: Patient was seen and case discussed with nursing. Patient is complaining of mild paranoia and auditory hallucinations that are at baseline. They are not command in nature. Per nursing he has been irritable and seclusive. However, he was out at the [employer] social. Compliant with his medications. He is motivated to stay sober and look for a rehab Mental Status Examination Appearance: Appropriate Consciousness: Alert Orientation: Person, Place, Date/Time Motor Activity: Normal gait Speech: Unremarkable Language: Adequate Fund of Knowledge: Adequate Attention and Concentration: Adequate Memory: Unremarkable Mood: Other (Euthymic to mildly dysphoric) Affect: Other (Slight decreased range and intensity) Thought Process & Associations: Intact Thought Content: Hallucinations Hallucination Type: Auditory (Nonspecific) Delusion Type: None Suicidal Ideation: No Suicidal Plan: No Suicidal Intention: No Homicidal Ideation: No Homicidal Plan: No Homicidal Intention: No Insight: Fair Judgment: Impulsive Assessment and Plan - Assessment (1) Alcohol abuse Code(s): F10.10 - Alcohol abuse, uncomplicated Status: Chronic (2) Schizophrenia Code(s): F20.9 - Schizophrenia, unspecified Status: Acute - Plan Plan: Continue current treatment plan Justification for Continued Inpatient Stay: Patient would decompensate in a less restrictive setting (2) Schizophrenia Qualifiers: Schizophrenia type: paranoid schizophrenia Qualified Code(s): F20.0 - Paranoid schizophrenia
[2017-11-15] MEDS: Venlafaxine XR 37.5 MG Capsule PO SCH (08:36)
[2017-11-15] MEDS: Senna/Docusate Sodium 8.6/50 MG Tablet PO SCH ×2 (08:36→21:03)
[2017-11-15] MEDS: Haloperidol 1 MG Tablet PO SCH (08:37)
--- NOTE | 2017-11-15 12:00 | P.PNPSY ---
Subjective Remarks: Patient was seen and case discussed with nursing. There is concern of secondary gain and possible malingering given his homelessness. Today he says his auditory hallucinations have completely resolved and he no longer has suicidal thoughts. However he is still "depressed." He is looking forward to a possible discharge to [facility] the . Is compliant with his medications. No evidence of psychosis was noted today Mental Status Examination Appearance: Appropriate Consciousness: Alert Orientation: Person, Place, Date/Time Motor Activity: Normal gait Speech: Unremarkable Language: Adequate Fund of Knowledge: Adequate Attention and Concentration: Adequate Memory: Unremarkable Mood: Other (Euthymic to mildly dysphoric) Affect: Other (Slight decreased range and intensity) Thought Process & Associations: Intact Thought Content: Appropriate Hallucination Type: None Delusion Type: None Suicidal Ideation: No Suicidal Plan: No Suicidal Intention: No Homicidal Ideation: No Homicidal Plan: No Homicidal Intention: No Insight: Fair Judgment: Impulsive Assessment and Plan - Assessment (1) Alcohol abuse Code(s): F10.10 - Alcohol abuse, uncomplicated Status: Chronic (2) Schizophrenia Code(s): F20.9 - Schizophrenia, unspecified Status: Acute - Plan Plan: Continue current treatment plan Justification for Continued Inpatient Stay: Patient would decompensate in a less restrictive setting (2) Schizophrenia Qualifiers: Schizophrenia type: paranoid schizophrenia Qualified Code(s): F20.0 - Paranoid schizophrenia
[2017-11-16] MEDS: Senna/Docusate Sodium 8.6/50 MG Tablet PO SCH ×2 (08:11→20:23)
[2017-11-16] MEDS: Venlafaxine XR 37.5 MG Capsule PO SCH (08:11)
[2017-11-16] MEDS: Haloperidol 1 MG Tablet PO SCH (08:13)
--- NOTE | 2017-11-16 14:43 | P.PNPSY ---
Subjective Remarks: Patient seen and persaud nurse, medical student Brenda, patient calm cooperative now denies suicidality homicidality, states the voices are just about diminished also. Patient has been unsuccessful in finding any type of a facility or program for himself. I did question if that may be a component of manipulation with this. In any event patient appears to have reached his maximum benefit of this psychiatric hospitalization thus I will consider discharging him tomorrow. We will increase his Resporal low to 4 mg twice daily Review of Systems All other systems reviewed negative except as stated in HPI Mental Status Examination Appearance: Appropriate Consciousness: Alert Orientation: Person, Place, Date/Time Motor Activity: Normal gait Speech: Unremarkable Language: Adequate Fund of Knowledge: Adequate Attention and Concentration: Adequate Memory: Unremarkable Mood: Other (Euthymic to mildly dysphoric) Affect: Other (Slight decreased range and intensity) Thought Process & Associations: Intact Thought Content: Appropriate Hallucination Type: None Delusion Type: None Suicidal Ideation: No Suicidal Plan: No Suicidal Intention: No Homicidal Ideation: No Homicidal Plan: No Homicidal Intention: No Insight: Fair Judgment: Impulsive Assessment and Plan - Assessment (1) Alcohol abuse Code(s): F10.10 - Alcohol abuse, uncomplicated Status: Chronic (2) Schizophrenia Code(s): F20.9 - Schizophrenia, unspecified Status: Acute - Plan Plan: Patient mood is improving, the voices are just thoughts dissipated. He has not been very successful in finding program or placement patient may, a homeless discharge. Since he is reaching maximum benefit of this hospitalization Justification for Continued Inpatient Stay: At this time patient would decompensate a place to a lower level of care (2) Schizophrenia Qualifiers: Schizophrenia type: paranoid schizophrenia Qualified Code(s): F20.0 - Paranoid schizophrenia
[2017-11-17] MEDS: Venlafaxine XR 37.5 MG Capsule PO SCH (08:13)
[2017-11-17] MEDS: Senna/Docusate Sodium 8.6/50 MG Tablet PO SCH (08:14)
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
== END 2017-11-17 14:40 | disposition home or self-care (01) ==
LOC: H4EA 20:00 → H260 11-08 21:01
PROVIDERS: ADMIT Psychiatry & Neurology Psychiatry; ATTEND Psychiatry & Neurology Psychiatry
DX: F31.9 Bipolar disorder, unspecified; F10.10 Alcohol abuse, uncomplicated; B19.20 Unspecified viral hepatitis C without hepatic coma; F20.9 Schizophrenia, unspecified